=== PATIENT | male | born 1970 | race Caucasian/White ===

== ENCOUNTER 2021-05-03 17:16 | Outpatient (REF) | payer BC, SELFPAY ==
[2021-05-03 17:55] LABS: MANUAL DIFF FLAG NO
[2021-05-03 18:01] LABS: Basophils Percent Auto 0.8 % (0-2); Eosinophils Absolute Auto 0.3 X10*3/uL (0.0-0.4); Eosinophils Percent Auto 5.2 % (0-4); Hematocrit 43.8 % (42-52); Hemoglobin 14.4 g/dl (14.0-18.0); Imm Gran Abs Auto 0.01 X10*3/uL (0.00-0.03); Imm Gran Pct Auto 0.2 % (0.0-0.4); Lymphocytes Absolute Auto 1.4 X10*3/uL (1.2-4.9); Lymphocytes Percent Auto 26.4 % (20-40); Mean Corpuscular HGB Conc 32.9 g/dl (31.0-36.0); Mean Corpuscular Hemoglobin 27.6 pg (27.0-33.0); Mean Corpuscular Volume 84.1 fL (80-98); Mean Platelet Volume 9.4 fL (9.4-12.4); Monocytes Absolute Auto 0.4 X10*3/uL (0.1-1.2); Monocytes Percent Auto 7.9 % (2-11); Neutrophils Absolute Auto 3.1 X10*3/uL (2.0-8.3); Neutrophils Percent Auto 59.5 % (45-73); Platelet Count 210 X10*3/uL (160-400); Red Blood Count 5.21 X10*6/uL (4.60-5.80); Red Cell Distribution Width 13.4 % (11.0-16.0); White Blood Count 5.2 X10*3/uL (4.8-10.8)
[2021-05-03 18:43] LABS: Alanine Aminotransferase 23 U/L (0-40); Albumin Level 4.2 g/dL (3.5-5.0); Alkaline Phosphatase 57 U/L (39-117); Anion Gap 15 (12-20); Aspartate Amino Transferase 22 U/L (5-37); Bilirubin Total 1.9 mg/dL (0.0-1.0); Blood Urea Nitrogen 12 mg/dL (9-16); Calcium 9.1 mg/dL (8.4-10.2); Carbon Dioxide 25 mmol/L (22-29); Chloride 103 mmol/L (96-108); Estimated Glomerular Filt Rate 58; Glucose Random 96 mg/dL (60-115); Potassium 4.8 mmol/L (3.3-5.1); Sodium 138 mmol/L (135-145); Total Protein 6.9 g/dL (6.5-8.0)
== END 2021-05-03 17:17 | disposition home or self-care (01) ==
LOC: HO.LAB 17:16
PROVIDERS: PCP Internal Medicine; Visit Provider Nurse Practitioner Family
DX: R21 Rash and other nonspecific skin eruption (principal)
CPT/HCPCS: 36415; 80053; 85025

== ENCOUNTER → 2021-06-09 12:18 | Outpatient (BNVA) | payer BC, SELFPAY | PROVIDERS: Visit Provider Urology ==

== ENCOUNTER 2022-06-19 05:54 | Outpatient (REF) | payer BC, SELFPAY ==
[2022-06-21 07:12] LABS: Follicle Stimulating Hormone 6.6 mIU/mL (1.6-8.0); Lutenizing Hormone 4.3 mIU/mL (1.5-9.3)
[2022-06-25 09:07] LABS: Testosterone, Free 82.2 pg/mL (35.0-155.0); Testosterone, Total 475 ng/dL (250-1100)
== END 2022-06-19 05:55 | disposition home or self-care (01) ==
LOC: HO.LAB 05:54
PROVIDERS: PCP Internal Medicine; Visit Provider Urology
DX: E29.1 Testicular hypofunction (principal); R68.82 Decreased libido
CPT/HCPCS: 36415; 83001; 83002; 84402; 84403

== ENCOUNTER → 2022-12-19 15:56 | Outpatient (BNVA) | payer BC, SELFPAY | PROVIDERS: PCP Internal Medicine; Visit Provider Urology | DX: Z13.89 Encounter for screening for other disorder (principal) ==

== ENCOUNTER → 2023-01-14 14:20 | Outpatient (BNV) | payer BC, SELFPAY | PROVIDERS: PCP Internal Medicine; Visit Provider Internal Medicine Medical Oncology | DX: D75.1 Secondary polycythemia (principal); Z86.711 Personal history of pulmonary embolism; Z86.718 Personal history of other venous thrombosis and embolism; D51.9 Vitamin B12 deficiency anemia, unspecified | CPT/HCPCS: 99204; 99213 ==

== ENCOUNTER 2024-06-10 08:04 | Outpatient (AMB) | payer BC, SELFPAY ==
--- NOTE | 2024-06-10 08:06 | MHC.OFFWIV ---
Intake Vital Signs 06/10/24 08:07 Height 5 ft 8 in Weight 214 lb BMI 32.5 BP 122/86 Blood Pressure Location Lt brachial Position Sitting Pulse 84 Pulse Source Pulse Oximeter Temp 97.7 F Temp Source Oral Pulse Oximetry (%) 95 Oxygen Delivery Method Room Air Intake Visit Reasons: EP-cold sweet, low body pain Intake Note: pt c/o cold sweats, low body pain and weakness. Started yesterday Patient Tobacco Use Status: Former Tobacco user Allergies No Known Allergies Allergy (Verified 06/10/24 08:10) Do you need a note to return to daycare/school/sports/work: Yes HPI HPI Comments History of Present Illness Details Patient is a 54-year-old male complaining of increased pressure in his lower abdomen when he stands up. He states the pressure is so bad it makes his legs weak. He states he was breaking out into a cold sweat. He states the symptoms resolve and then come back there does not seem to be any exacerbating or relieving factors that are obvious to him. He denies any fevers, nausea vomiting or diarrhea but does not endorse some stomach pain that he is unable to describe to me. He endorses pain with urination, increased urgency, he also has some low back pain but denies any blood in his urine. He denies any changes in his bowel habits. [facility] Medical History Erectile dysfunction Erythrocytosis Vitamin D deficiency Pure hypercholesterolemia Basal cell carcinoma of skin of right upper eyelid, including canthus Peripheral vascular disease History of polycythemia History of pulmonary embolism Erectile dysfunction History of DVT of lower extremity Insomnia Anxiety Rash Surgical History S/P IVC filter Family History Father Diabetes Mother Diabetes Social History Housing: Apartment Alcohol intake: current Alcohol intake frequency: holidays/special occasions only Patient Tobacco Use Status: Former Tobacco user e-Cigarette/Vaping Use: Never Used Second Hand Smoke Exposure: No service: No Current occupational status: employed 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 Cognitive needs: No Hearing needs: No Vision needs: Yes (Reading Glasses) Review of Systems Const All systems reviewed & are unremarkable except as noted in HPI and below Neuro Denies Abnormal speech present and Denies Sensory deficit (Neuro) Physical Exam Vital Signs: Last Vital Signs Temp 97.7 F 06/10/24 08:07 Pulse 84 06/10/24 08:07 BP 122/86 06/10/24 08:07 Pulse Ox 95 06/10/24 08:07 Oxygen Delivery Method Room Air 06/10/24 08:07 BMI result Body Mass Index 32.5 Const General: cooperative, healthy appearing and comfortable Orientation/consciousness: patient oriented x3 HEENT Head: Yes normal to inspection and Yes normocephalic General nose exam: Normal external nose present Face and sinus: Yes normal facial exam Eyes General: appearance normal, both eyes and all related structures Resp Effort & Inspection: normal respiratory effort and able to speak in complete sentences Back/Spine/Pelvis Cervical Spine: cervical ROM normal and No Cervical spine tenderness Thoracic/Lumbar Spine: thoracic and lumbar spine normal to inspection, No thoracic spinal tenderness and No lumbar spinal tenderness Neuro General: patient oriented x3 and Unable to assess gait Cranial nerves: Yes CN's II-XII intact bilaterally Cognition (Neuro): normal cognition Speech: No Abnormal speech present Gait exam (Neuro): Unable to assess gait Motor exam (neuro): 5/5 motor strength present throughout and Pronator motor function not present Sensory Exam: No Sensory deficit (Neuro) Results AMB Urinalysis, Automated UA Leukoctes 15 Bel/uL Last Edit by Jerome Martin CMA on 06/10/24 08:40 UA Nitrite Negative Last Edit by Jerome Martin CMA on 06/10/24 08:40 UA Urobilinogen 0.2 mg/dL Last Edit by Jerome Martin CMA on 06/10/24 08:40 UA Protein 30 mg/dL Last Edit by Jerome Martin CMA on 06/10/24 08:40 UA pH 5.5 Last Edit by Jerome Martin CMA on 06/10/24 08:40 UA Blood 0 Rudy/uL Last Edit by Jerome Martin CMA on 06/10/24 08:40 UA Specific [place] 1.030 Last Edit by Jerome Martin CMA on 06/10/24 08:40 UA Ketone Positive Last Edit by Jerome Martin CMA on 06/10/24 08:40 UA Bilirubin 2 mg/dL Last Edit by Jerome Martin CMA on 06/10/24 08:40 UA Glucose 0 mg/dL Last Edit by Jerome Martin CMA on 06/10/24 08:40 Assessment & Plan Assessment & Plan (1) Lower extremity weakness: Code(s): R29.898 - Other symptoms and signs involving the musculoskeletal system Qualifiers: Laterality: bilateral Qualified Code(s): R29.898 - Other symptoms and signs involving the musculoskeletal system Plan: Vital signs are stable, patient looks a bit alcantara and he is unable to get out of the wheelchair. UA is positive for 15 leukocyte/uL, 1+ protein, 5mg/dl ketones and 2+ bilirubin. See physical exam above. Patient needs a further workup and should go to the emergency room so we called an ambulance to transport him as he is not safe to drive. I did call [facility] ED with expect and spoke to Dr. Reynaga. Plan See above Coding Level of Care Code Est Pt Level 5 (08040) Diagnoses Weakness of both lower extremities R29.898 Laterality: bilateral
[2024-06-10 08:07] VITALS: BP 122/86; PULSE 84; TEMP 36.5; O2SAT 95; BMI 32.5
== END 2024-06-10 12:48 | disposition home or self-care (01) ==
PROVIDERS: PCP Internal Medicine; Visit Provider Physician Assistant
DX: R29.898 Other symptoms and signs involving the musculoskeletal system (principal)

== ENCOUNTER → 2024-06-10 08:04 | Outpatient (BNVA) | payer BC, SELFPAY | PROVIDERS: PCP Internal Medicine | DX: R29.898 Other symptoms and signs involving the musculoskeletal system (principal) ==

== ENCOUNTER 2024-06-10 09:25 | Inpatient (IN) | payer BC, SELFPAY ==
[2024-06-10] VITALS (8 sets, daily range): BP systolic 117–169; BP diastolic 88–107; PULSE 44–89; RESP 12–19; TEMP 36.7–37; O2SAT 96–100; BMI 32.5; BMI 32.6
--- NOTE | ~2024-06-10 | CT_ITS ---
EXAMINATION: CT ABDOMEN AND PELVIS WITH CONTRAST CLINICAL INFORMATION: Suprapubic pain. COMPARISON: None available. TECHNIQUE: Multidetector volumetric images were obtained from the superior aspect of the liver through the pubic symphysis following administration 85 mL of Omnipaque 350 intravenous contrast. Sagittal and coronal reformatted images were obtained on the technologist's workstation. Oral contrast: No This CT examination was performed using dose optimization techniques as appropriate, variously including the following: *Automated exposure control *Adjustment of mA and/or kV according to patient size (this includes techniques or standardized protocols for targeted exams where dose is matched to indication/reason for exam; i.e. extremities or head) *Use of iterative reconstruction technique DLP: 736 mGy-cm FINDINGS: LUNG BASES: The visualized lung bases are unremarkable. LIVER, GALLBLADDER, AND BILIARY TREE: The liver is decreased in attenuation. No focal hepatic lesion or biliary ductal dilatation is present. The gallbladder is surgically absent. PANCREAS: Unremarkable. SPLEEN: Measures 14.5 cm in sagittal dimension. The ADRENAL GLANDS: Unremarkable. KIDNEYS AND URETERS: The kidneys are symmetric in size and enhancement. 1.0 cm right renal cyst requires no further imaging follow-up. No hydronephrosis. No perinephric stranding. BLADDER: Circumferential wall thickening and perivesicular stranding despite underdistention. GASTROINTESTINAL TRACT: Small and large bowel loops are of normal caliber. No small bowel obstruction. Appendix is within normal limits. ABDOMINAL WALL: Small fat-containing left inguinal hernia. LYMPH NODES: Subcentimeter mesenteric lymph nodes. VASCULAR: IVC filter is in place. Normal caliber abdominal aorta. PELVIC VISCERA: Enlarged prostate gland. OSSEOUS STRUCTURES: No destructive bone lesions. CT/CT abdomen pelvis w IV con IMPRESSION: Circumferential wall thickening and perivesicular stranding despite underdistention. Advise correlation with urinalysis. Splenomegaly. Hepatic steatosis. Electronically signed by: Rigoberto Stevenson MD 06/10/2024 12:34 PM EDT
--- NOTE | ~2024-06-10 | US_ITS ---
EXAMINATION: US TRIPLEX LOWER EXTREMITY, BILATERAL CLINICAL INFORMATION: History of DVT with known thrombosis of the iliac veins COMPARISON: CT abdomen and pelvis earlier today along with MRI of the lumbar spine TECHNIQUE: Color-flow triplex imaging with spectral analysis and compression Doppler were performed on the bilateral lower extremities. FINDINGS: Right: The right leg was thought to be negative for DVT by the automotive sales executive. There is a question of some noncompressible thrombus in the common femoral vein. The femoral vein and popliteal and visualized tibial veins appear normal. Left: There is noncompressible thrombus seen in the left common femoral vein. The left femoral vein is duplicated with noncompressible thrombus in the mid and distal portions. There is probable chronic thrombus seen in the popliteal vein. Tibial veins appear patent. There is no Mike's cyst. US/US venous duplex LE BI IMPRESSION: 1. This exam demonstrates definitive left-sided DVT. 2. I do believe that right-sided DVT is probably present as well but better demonstrated on the prior CT abdomen and MR lumbar spine of earlier today. Electronically signed by: Zi Power MD 06/10/2024 08:17 PM EDT
--- NOTE | ~2024-06-10 | MR_ITS ---
MR LUMBAR SPINE WITHOUT AND WITH CONTRAST CLINICAL INFORMATION: Back pain. Lower extremity weakness. COMPARISON: None available. TECHNIQUE: MRI of the lumbar spine was obtained using routine sequences with and without contrast. Intravenous contrast: Gadavist 10 mL FINDINGS: There is extensive venous thrombosis involving the imaged iliac veins and the inferior vena cava below the level of an infrarenal IVC filter. There is some stranding adjacent to these thrombosed veins making it difficult to exclude thrombophlebitis. 5 nonrib-bearing lumbar-type vertebral bodies. Lumbar alignment is maintained. The vertebral body heights are preserved. There is moderate disc volume loss at L1-L2 and mild disc volume loss at L4-L5 with disc desiccation at both of these levels. There is no bone marrow edema. There are no acute fractures. At L1-L2, there is a small diffuse annular disc bulge without central canal stenosis. There is mild foraminal encroachment bilaterally. At L2-L3, the disc contour is normal and there is mild bilateral facet arthropathy without central canal stenosis nor foraminal stenosis. There is a small annular disc bulge and mild bilateral facet arthropathy. No central canal stenosis. Mild foraminal encroachment bilaterally. At L3-L4, there is a small diffuse annular disc bulge and there is mild bilateral facet arthropathy. There is no central canal stenosis and there is no foraminal stenosis. At L4-L5, there is a diffuse annular disc bulge and there is severe bilateral facet arthropathy and ligamentum flavum thickening resulting in mild central canal stenosis, bilateral subarticular zone stenosis with mild mass effect on the traversing L5 nerve roots bilaterally, and mild to moderate bilateral foraminal encroachment. At L5-S1, the disc contour is normal and disc osteophyte and facet arthropathy results in mild to moderate left-sided foraminal encroachment. MR/MR lumbar spine wo/w con IMPRESSION: - There is extensive deep central venous thrombosis involving the imaged iliac veins and the inferior vena cava below the level of an infrarenal IVC filter. There is some stranding adjacent to these thrombosed veins making it difficult to exclude thrombophlebitis. Emergent vascular consultation advised. - Multilevel lumbar spondylosis, greatest at L4-L5 where multifactorial degenerative changes result in mild central canal stenosis, bilateral subarticular zone stenosis with mild mass effect on the traversing L5 nerve roots bilaterally, and mild to moderate bilateral foraminal encroachment. Findings discussed with Neeta MENCHACA at 4:34 PM on June 10, 2024. Electronically signed by: Don Tello MD 06/10/2024 04:36 PM EDT RP
--- NOTE | 2024-06-10 09:28 | ED_ITS ---
HPI - General Adult General Chief complaint: Abdominal Pain Stated complaint: ABD PAIN W/BLE WEAKNESS,FROM [facility] PER EMS Time Seen by Provider: 06/10/24 09:27 Source: patient, EMS and RN notes reviewed Mode of arrival: wheelchair Limitations: no limitations History of Present Illness ED Provider: Neeta Zavaleta PA-C HPI narrative: This is a 54-year-old male, with a history of DVT and PE with IVC filter previously anticoagulated up until approximately 5 years ago, who presents emergency department with acute onset lower abdominal pressure, back pain, and bilateral leg weakness which started yesterday. 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 He states he was unable to fully walk to the restroom due to the weakness in his legs. He states that since, he has been unable to ambulate for prolonged periods of time due to weakness in his lower extremities. He states that he also feels a pressure-like sensation into his lower abdomen, which worsens with standing. He denies any fevers, chills, chest pain, shortness of breath, nausea, vomiting or diarrhea. He also reports that he feels as though he is unable to fully empty his bladder. He denies any saddle anesthesia. Denies any recent illnesses. Denies history of similar symptoms in the past. Denies recent heavy lifting or falls.No hx of IVDA. No chest pain or SOB. No other complaints or concerns at this time. MD complaint: Abdominal pressure, back pain, bilateral leg weakness Onset (ago): day(s) Radiation: non-radiation Relieving factors: none Exacerbating factors: none Associated symptoms: denies other symptoms Treatments prior to arrival: none Related Data Previous Rx's ?Medication ?Instructions ?Recorded amlodipine 5 mg tablet 5 mg PO DAILY 90 days #90 tabs 06/12/24 apixaban 5 mg tablet (Eliquis) 5 mg PO BID 90 days #190 tabs 06/12/24 oxycodone 5 mg tablet 5 mg PO BID PRN severe pain (scale 06/12/24 score 7-10) #10 tabs Allergies Allergy/AdvReac Type Severity Reaction Status Date / Time No Known Allergies Allergy Verified 06/18/24 10:03 Review of Systems 2 Review of Systems: Yes all other systems are reviewed and are negative Constitutional: Constitutional: Reports as per [facility] Past Medical History Attestation statement: The following information was validated with the patient. Medical History Erectile dysfunction Erythrocytosis Vitamin D deficiency Pure hypercholesterolemia Basal cell carcinoma of skin of right upper eyelid, including canthus Peripheral vascular disease History of polycythemia History of pulmonary embolism Erectile dysfunction History of DVT of lower extremity Insomnia Anxiety Rash Surgical History S/P IVC filter Family History Family History Father Diabetes Mother Diabetes Social History Social History Household Members: None Housing: Apartment Do you presently have visiting nurse or other home services: No Alcohol intake: current Alcohol intake frequency: holidays/special occasions only Patient Tobacco Use Status: Former Tobacco user e-Cigarette/Vaping Use: Never Used Second Hand Smoke Exposure: No service: No Current occupational status: employed 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 Cognitive needs: No Hearing needs: No Vision needs: Yes (Reading Glasses) Physical Exam ED Vital Signs: Vital Signs - 24 hr 06/10/24 09:44 06/10/24 10:17 06/10/24 12:09 Temperature 98.0 F 98.0 F 98.3 F Pulse Rate 84 84 81 Respiratory Rate 16 16 18 Blood Pressure 169/103 H 169/103 H 160/107 H Pulse Oximetry 100 100 99 Oxygen Delivery Method Room Air Room Air Room Air 06/10/24 16:57 Temperature 98.3 F Pulse Rate 78 Respiratory Rate 16 Blood Pressure 143/96 H Pulse Oximetry 97 Oxygen Delivery Method Room Air BMI result Body Mass Index 32.6 Const General: cooperative, comfortable and no acute distress Orientation/consciousness: patient oriented x3 Limitations: no limitations HENMT Head: Yes normal to inspection, Yes normocephalic and Yes atraumatic Ears: hearing grossly normal bilaterally General nose exam: Normal external nose present Face and sinus: Yes normal facial exam Mouth: Normal oral and palatal mucosa present, oropharynx normal and moist mucous membranes Throat: Yes posterior oropharynx normal Eyes General: appearance normal, both eyes and all related structures Eyelids: Yes eyelids normal Conjunctivae: conjunctivae normal Sclerae: sclerae normal Pupils: Equal, round and reactive pupils present EOM: EOMs intact bilaterally Neck Neck: Yes normal visual inspection, Yes full ROM and Yes no lymphadenopathy Lymphatic: no lymphadenopathy noted Chest Chest palpation & inspection: normal inspection of the chest Resp Effort & Inspection: normal respiratory effort and able to speak in complete sentences Auscultation: clear to auscultation bilaterally, no crackles, no rales, no rhonchi and no wheezes Cardio Rate: regular rate Rhythm: regular rhythm Heart sounds: S1 normal heart sound present and S2 normal heart sound present GI Other: Suprapubic tenderness on examination, no overlying masses. TTP in the right inguinal region, no palpable masses or deformities noted. Inspection: Yes normal to inspection Other: examination performed with RN present at all times. Patient has no testicular pain, swelling. Back/Spine/Pelvis Other: No midline spine tenderness, no overlying erythema, or warmth. No CVA tenderness Cervical Spine: normal cervical lordosis Thoracic/Lumbar Spine: thoracic and lumbar spine normal to inspection Skin General skin exam: no rashes or lesions noted Trauma: no lacerations or abrasions Wounds: no wounds Neuro General: patient oriented x3 and moves all extremities Cranial nerves: Yes Equal, round and reactive pupils present Extrem Other: Strength 5/5 in lower extremities. No peripheral edema. No calf tenderness. Legs are well perfused, capillary refill less than 2 seconds. dtrs 2+. sensation intact. popiteal pulses palpated, strong femoral pulse noted bilaterally. Weakness in legs noted upon standing, unable to stand. General: Yes normal to inspection Right upper extremity: normal to inspection Left upper extremity: normal to inspection Right lower extremity: normal to inspection Left lower extremity: normal to inspection Course Reevaluation(s) Reevaluation #1: Received critical [facility] call stating he has an extensive deep central vein 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 There is extensive deep central venous thrombosis involving the imaged iliac veins and the inferior vena cava below the level of an infrarenal IVC filter. Immediately consulted Dr. Covarrubias who recommends heparin drip with full bolus. Discssued with my attending physician, Dr. Denise who was made aware of this critical result and assessed pt. Time: 16:30 Reevaluation #2: Spoke to Dr. Covarrubias who again, as there was concern whether not this is something we could manage at our hospital or if patient needs to be sent elsewhere. Dr. Covarrubias reported that he spoke to [facility] and spoke to radiologist who is not fully convinced that this is completely occluded as alluded to in the reports. He is still requesting lower extremity venous DVT. He still recommends admission to Medicine, and heparin bolus as well as heparin drip. Dr. Covarrubias recommends NPO at midnight. Pt remains stable. Transfer of care initiated. Time: 17:37 Medications Administered Discontinued Medications Generic Name Dose Route Start Last Admin Trade Name Freq PRN Reason Stop Dose Admin Acetaminophen 650 mg 06/10/24 19:14 06/11/24 20:00 Acetaminophen 325 Mg Tablet PO 650 mg Q6H PRN Administration Pain, Mild (Pain Scale 1-3), fever or headache Amlodipine Besylate 5 mg 06/12/24 11:20 06/12/24 12:26 Amlodipine Besylate 5 Mg Tablet PO 5 mg DAILY BERNA Administration Protocol Apixaban 10 mg 06/12/24 09:00 06/12/24 09:09 Apixaban 5 Mg Tablet PO 06/18/24 21:01 10 mg BID BERNA Administration Gadobutrol 10 ml 06/10/24 16:08 06/10/24 16:09 Gadobutrol 10 Ml Vial IVPUSH 06/10/24 16:09 10 ml ONCE ONE Administration Heparin Sodium (Porcine) 7,800 unit 06/10/24 16:47 06/10/24 17:56 Heparin Sodium,Porcine 5,000 Unit/Ml Vial 80 unit/kg (7800 unit) 06/10/24 16:48 7,800 unit IVPUSH Administration ONCE ONE Heparin Sodium (Porcine) 3,900 unit 06/10/24 16:47 06/12/24 02:37 Heparin Sodium,Porcine 5,000 Unit/Ml Vial 40 unit/kg (3900 unit) 3,900 unit IVPUSH Administration PROTOCOL BOLUS PRN 40 unit/kg - Heparin Protocol Protocol Heparin Sodium/Sodium Chloride 25,000 unit in 250 mls @ 0 mls/hr 06/10/24 17:00 06/12/24 08:09 Heparin Sodium,Porcine/1/2ns IVCONT Infused .Q0M BERNA Titration Protocol Per Protocol Lactated Ringer's 1,000 mls @ 999 mls/hr 06/10/24 21:15 06/10/24 22:03 Lr IV 06/10/24 22:15 Infused .Q1H1M BERNA Infusion Sodium Chloride 1,000 mls @ 100 mls/hr 06/11/24 10:15 06/12/24 08:53 Ns IVCONT Infused .Q10H BERNA Infusion Iohexol 85 ml 06/10/24 10:59 06/10/24 11:01 Iohexol 350 Mg/Ml 100 Ml Infus..Btl IV 06/10/24 11:00 85 ml ONCE ONE Administration Loperamide HCl 2 mg 06/10/24 20:50 06/10/24 21:49 Loperamide Hcl 2 Mg Capsule PO 2 mg Q6H PRN Administration Loose Stool Lorazepam 1 mg 06/10/24 14:57 06/10/24 15:02 Lorazepam 2 Mg/Ml Vial IVPUSH 06/10/24 14:58 1 mg ONCE ONE Administration Melatonin 6 mg 06/10/24 19:14 06/11/24 22:42 Melatonin 3 Mg Tablet PO 6 mg BEDTIME PRN Administration Insomnia Oxycodone HCl 5 mg 06/11/24 16:19 06/12/24 15:54 Oxycodone Hcl Immed Release 5 Mg Tablet PO 5 mg Q4H PRN Administration Pain, Moderate(Pain Scale 4-6) Sodium Chloride 3 ml 06/11/24 00:00 06/12/24 15:55 0.9 % Sodium Chloride Flush 3 Ml Syringe IVFLUSH 3 ml QSHIFT BERNA Administration Medical Decision Making Medical Decision Making [facility] Narrative: This is a 54-year-old male who presents emergency department with complaints of lower abdominal pressure into his groin, and bilateral weakness since yesterday. On arrival, blood pressure elevated at 169/103, all other vital signs within normal limits. Patient has 5/5 lower extremity strength. Patient does have suprapubic tenderness on examination. DDX including cauda equina syndrome, myasthenia gravis, lumbar radiculopathy, obstructive uropathy, cystitis. I discussed case with my attending physician and given acute onset LE weakness, will order labs, CT and MRI to further assess. Differential Diagnosis Differential Diagnoses: The differential diagnosis associated with the presentation includes see above Admission/Observation Consideration of admission/observation: Escalation of care including admission/observation considered Lab Data MDM Lab Attestation statement: I reviewed the patient's lab results. No leukocytosis, H&H stable, chemistry with hyperbilirubemia at 4.6, UA appears not infected. 06/12/24 06:52 06/12/24 06:52 Labs: Lab Results 06/10/24 06/10/24 06/10/24 Range/Units 10:15 12:12 17:11 WBC 8.5 7.4 (4.8-10.8) X10*3/uL RBC 3.78 L 3.54 L (4.60-5.80) X10*6/uL Hgb 14.9 13.9 L (14.0-18.0) g/dl Hct 41.4 L 38.0 L (42.0-52.0) % MCV 109.5 H 107.3 H (80.0-98.0) fL MCH 39.4 H 39.3 H (27.0-33.0) pg MCHC 36.0 36.6 H (31.0-36.0) g/dl RDW 13.2 13.2 (11.0-16.0) % Plt Count 151 L 142 L (160-400) X10*3/uL MPV 9.7 9.1 L (9.4-12.4) fL Immature Gran % (Auto) 0.2 (0.0-0.4) % Neut % (Auto) 86.1 H (45-73) % Lymph % (Auto) 7.9 L (20-40) % Walsh % (Auto) 5.6 (2-11) % Eos % (Auto) 0.0 (0-4) % Baso % (Auto) 0.2 (0-2) % Lymph # (Auto) 0.7 L (1.2-4.9) X10*3/uL Walsh # (Auto) 0.5 (0.1-1.2) X10*3/uL Eos # (Auto) 0.0 (0.0-0.4) X10*3/uL Baso # (Auto) 0.0 (0.0-0.2) X10*3/uL Abs Immat Gran (auto) 0.02 (0.00-0.03) X10*3/uL Absolute Neuts (auto) 7.3 (2.0-8.3) x10*3/uL Absolute Nucleated RBC 0.000 0.000 (0.0-0.012) X10*3/uL Nucleated RBC % (auto) 0.0 0.0 (0.0-0.2) /100WBC ESR 2 (0-15) MM/HR PT 13.0 H 13.2 H (10.9-12.4) SEC INR 1.1 1.1 (0.9-1.1) aPTT Heparin Protocol 32.5 L (53-77.9) SEC Sodium 141 (135-145) mmol/L Potassium 4.0 (3.3-5.1) mmol/L Chloride 107 (96-108) mmol/L Carbon Dioxide 26 (22-29) mmol/L Anion Gap 12 (12-20) BUN 16 (9-16) mg/dL Creatinine 1.17 (0.5-1.4) mg/dL Estim Creat Clear Calc 79.6 Estimated GFR > 60 Random Glucose 143 H (60-115) mg/dL Calcium 9.7 D (8.4-10.2) mg/dL Total Bilirubin 4.6 H (0.0-1.0) mg/dL Direct Bilirubin 0.6 H (0.0-0.5) mg/dL AST 17 (5-37) U/L ALT 18 (0-40) U/L Alkaline Phosphatase 47 (39-117) U/L Troponin I High Sens 4.4 (<3.5-35.0) ng/L C-Reactive Protein 0.50 (< or = 0.50) mg/dL Total Protein 7.3 (6.5-8.0) g/dL Albumin 4.7 (3.5-5.0) g/dL Lipase 16 (8-78) U/L Urine Color Dark Yellow Urine Appearance Clear Urine pH 7.0 (5.0-9.0) Ur Specific [place] >= 1.030 H (1.005-1.025) Urine Protein 30 (1+) H (Neg-Trace) mg/dL Urine Glucose (UA) Negative (Negative) mg/dL Urine Ketones Trace (Negative) mg/dL Urine Blood Negative (Negative) Urine Nitrite Negative (Negative) Ur Leukocyte Esterase Negative (Negative) Urine RBC 0-2 (0-2) /HPF Urine WBC 0-5 (0-5) /HPF Ur Squamous Epith Cells 0-2 (0-2) /HPF Urine Bacteria None Seen (None Seen) Hyaline Casts 3-5 (0-2) /LPF Chlam trachomat DNA PCR NOT DETECTED (Not Detect.) Influenza Type A (PCR) NEGATIVE (Negative) Influenza Type B (PCR) NEGATIVE (Negative) N.gonorrhoeae DNA (PCR) NOT DETECTED (Not Detect.) RSV RNA Qual (PCR) NEGATIVE (Negative) SARS-CoV-2 RNA (RT-PCR) NEGATIVE (Negative) Independent Interpretation I performed an independent interpretation of an: EKG Interpretation: EKG normal sinus rhythm at a ventricular rate of 79 beats per minute, no STEMI Radiology Impression Discussion of test interpretation with radiology: I have reviewed the radiologist's reading. Radiologist Impression: MR/MR lumbar spine wo/w con IMPRESSION: - There is extensive deep central venous thrombosis involving the imaged iliac veins and the inferior vena cava below the level of an infrarenal IVC filter. There is some stranding adjacent to these thrombosed veins making it difficult to exclude thrombophlebitis. Emergent vascular consultation advised. - Multilevel lumbar spondylosis, greatest at L4-L5 where multifactorial degenerative changes result in mild central canal stenosis, bilateral subarticular zone stenosis with mild mass effect on the traversing L5 nerve roots bilaterally, and mild to moderate bilateral foraminal encroachment. Findings discussed with Neeta MENCHACA at 4:34 PM on June 10, 2024. Electronically signed by: Don Tello MD 06/10/2024 04:36 PM EDT RP Dictated By: Don Tello MD CT/CT abdomen pelvis w IV con IMPRESSION: Circumferential wall thickening and perivesicular stranding despite underdistention. Advise correlation with urinalysis. Splenomegaly. Hepatic steatosis. Electronically signed by: Rigoberto Stevenson MD 06/10/2024 12:34 PM EDT RP Dictated By: Dayana Stevenson MD Signed By: <Electronically signed by Dayana Stevenson MD in OV> Critical Care Time Critical Care Time Critical Care Time: Yes Total Critical Care Time: 60 Attestation: I have personally provided critical care time exclusive of time spent on separately billable procedures. Time includes review of lab data, radiology results, discussion with consultants, and monitoring for potential decompensation. Intervention performed as documented. Discharge Plan Discharge Clinical Impression: DVT (deep venous thrombosis) Qualifiers: DVT location: lower extremity Affected thrombotic vein of extremity: iliac C hronicity: acute Laterality: bilateral Qualified Code(s): I82.423 - Acute embolism and thrombosis of iliac vein, bilateral Patient Disposition: Admitted As Inpatient Discharge Date/Time: 06/11/24 18:22
--- NOTE | 2024-06-10 09:47 | ECG_ITS ---
Test Reason : WEAKNESS Blood Pressure : / mmHG Vent. Rate : 079 BPM Atrial Rate : 079 BPM P-R Int : 134 ms QRS Dur : 084 ms QT Int : 380 ms P-R-T Axes : 054 022 041 degrees QTc Int : 435 ms Normal sinus rhythm Nonspecific T wave abnormality Abnormal ECG When compared with ECG of 28-JUN-2017 08:25, Vent. rate has increased BY 28 BPM Nonspecific T wave abnormality now evident in Lateral leads Referred By: Neeta Zavaleta Electronically Signed By:ASHLYN FISCHER
[2024-06-10 10:19] LABS: MANUAL DIFF FLAG NO
[2024-06-10 10:21] LABS: Basophils Percent Auto 0.2 % (0-2); Hematocrit 41.4 % (42.0-52.0); Hemoglobin 14.9 g/dl (14.0-18.0); Imm Gran Abs Auto 0.02 X10*3/uL (0.00-0.03); Imm Gran Pct Auto 0.2 % (0.0-0.4); Lymphocytes Absolute Auto 0.7 X10*3/uL (1.2-4.9); Lymphocytes Percent Auto 7.9 % (20-40); Mean Corpuscular Hemoglobin 39.4 pg (27.0-33.0); Mean Corpuscular Volume 109.5 fL (80.0-98.0); Mean Platelet Volume 9.7 fL (9.4-12.4); Monocytes Absolute Auto 0.5 X10*3/uL (0.1-1.2); Monocytes Percent Auto 5.6 % (2-11); Neutrophils Absolute Auto 7.3 x10*3/uL (2.0-8.3); Neutrophils Percent Auto 86.1 % (45-73); Platelet Count 151 X10*3/uL (160-400); Red Blood Count 3.78 X10*6/uL (4.60-5.80); Red Cell Distribution Width 13.2 % (11.0-16.0); White Blood Count 8.5 X10*3/uL (4.8-10.8)
[2024-06-10 10:27] LABS: INTERNATIONAL NORM RATIO 1.1 (0.9-1.1)
[2024-06-10 10:37] LABS: Alanine Aminotransferase 18 U/L (0-40); Albumin Level 4.7 g/dL (3.5-5.0); Alkaline Phosphatase 47 U/L (39-117); Anion Gap 12 (12-20); Aspartate Amino Transferase 17 U/L (5-37); Bilirubin Direct 0.6 mg/dL (0.0-0.5); Bilirubin Total 4.6 mg/dL (0.0-1.0); Blood Urea Nitrogen 16 mg/dL (9-16); Calcium 9.7 mg/dL (8.4-10.2); Carbon Dioxide 26 mmol/L (22-29); Chloride 107 mmol/L (96-108); Creatinine Clr Calc Pharmacy 79.6; Estimated Glomerular Filt Rate > 60; Glucose Random 143 mg/dL (60-115); Lipase 16 U/L (8-78); Sodium 141 mmol/L (135-145); Total Protein 7.3 g/dL (6.5-8.0)
[2024-06-10 10:46] LABS: Troponin-I High Sensitivity 4.4 ng/L (<3.5-35.0)
[2024-06-10 10:59] LABS: Influenza A PCR NEGATIVE (Negative); Influenza B PCR NEGATIVE (Negative); Resp Syncy Virus RNA Qual PCR NEGATIVE (Negative); SARS COV2 PCR INHOUSE NEGATIVE (Negative)
[2024-06-10 11:00] LABS: Erythrocyte Sedimentation Rate 2 MM/HR (0-15)
[2024-06-10] MEDS: iohexoL 350 MG/ML 100 ML INFUS..BTL 85 ML IV (11:01)
[2024-06-10 12:25] LABS: Appearance Urine Clear; Color Urine Dark Yellow; Glucose Urine UA Negative (Negative); Leukocyte Esterase Urine Negative (Negative); Nitrite Urine Negative (Negative); Specific Gravity - Urine >= 1.030 (1.005-1.025); UMIC TRIGGER UACC YES; Urine Blood Negative (Negative); Urine Ketones Trace mg/dL (Negative); Urine Protein 30 (1+) mg/dL (Neg-Trace)
[2024-06-10 12:27] LABS: Bacteria Urine None Seen (None Seen); RBC Urine 0-2 /HPF (0-2); Squamous Epithelial Cell Urine 0-2 /HPF (0-2); WBC Urine 0-5 /HPF (0-5)
[2024-06-10] MEDS: LORazepam 2 MG/ML VIAL 1 MG IVPUSH (15:02)
--- NOTE | 2024-06-10 15:15 | PC.NURSE ---
pt to MRI, MRI screening form faxed, pt medicated prior to transport.
[2024-06-10] MEDS: gadobutroL 10 ML VIAL IVPUSH (16:09)
[2024-06-10 17:21] LABS: Hemoglobin 13.9 g/dl (14.0-18.0); Mean Corpuscular HGB Conc 36.6 g/dl (31.0-36.0); Mean Corpuscular Hemoglobin 39.3 pg (27.0-33.0); Mean Corpuscular Volume 107.3 fL (80.0-98.0); Mean Platelet Volume 9.1 fL (9.4-12.4); Platelet Count 142 X10*3/uL (160-400); Red Blood Count 3.54 X10*6/uL (4.60-5.80); Red Cell Distribution Width 13.2 % (11.0-16.0); White Blood Count 7.4 X10*3/uL (4.8-10.8)
[2024-06-10 17:32] LABS: INTERNATIONAL NORM RATIO 1.1 (0.9-1.1); Prothrombin Time 13.2 SEC (10.9-12.4)
[2024-06-10 17:34] LABS: PTT Heparin Drip 32.5 SEC (53-77.9)
[2024-06-10] MEDS: Heparin Sodium,Porcine 5,000 UNIT/ML VIAL 7800 UNIT IVPUSH (17:56)
[2024-06-10] MEDS: Heparin Sodium,Porcine/1/2NS 25,000 UNIT/250 ML IV.SOLN 13.59 UNIT IVCONT (17:59)
--- NOTE | 2024-06-10 19:15 | P.HPHOSP_ITS ---
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 He has been off anticoagulation for the last 5 years. Patient states he also stopped taking lisinopril since he was having a headache. Currently he is not on any prescription medications. Patient's symptoms started 1 day prior to presentation. He has been having bilateral leg pain and lower back pain. Pain worsened to the point that he could not walk. No fever, chills, chest discomfort, palpitations, shortness of breath, abdominal pain, changes in urinary or bowel habits. In the emergency department, imaging with 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. Vascular surgery was consulted who requested admission with IV heparin. Review of Systems 2 Constitutional: Constitutional: Reports fatigue and Reports weakness Cardiovascular: Cardiovascular: Reports no additional cardiovascular complaints Respiratory: Respiratory: Reports no additional respiratory complaints Gastrointestinal: Gastrointestinal: Reports no additional gastrointestinal complaints Genitourinary: Genitourinary: Reports no additional male genitourinary complaints Neurologic: Reports weakness Endocrine: Endocrine: Reports fatigue [facility] Medical History Erectile dysfunction Erythrocytosis Vitamin D deficiency Pure hypercholesterolemia Basal cell carcinoma of skin of right upper eyelid, including canthus Peripheral vascular disease History of polycythemia History of pulmonary embolism Erectile dysfunction History of DVT of lower extremity Insomnia Anxiety Rash Family History Father Diabetes Mother Diabetes Surgical History S/P IVC filter Social History Housing: Apartment Alcohol intake: current Alcohol intake frequency: holidays/special occasions only Patient Tobacco Use Status: Former Tobacco user Smoked in Last 30 Days: No e-Cigarette/Vaping Use: Never Used Second Hand Smoke Exposure: No Use of substances other than those prescribed or required for medical reasons: No Advance Directives: No Advance Directives Information Provided: Yes Nutrition Risks: No Nutritional Risk service: No Current occupational status: employed 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 Cognitive needs: No Hearing needs: No Vision needs: Yes (Reading Glasses) Meds Allergies Allergy/AdvReac Type Severity Reaction Status Date / Time No Known Allergies Allergy Verified 06/10/24 09:50 Active Medications: Current Medications Heparin Sodium (Porcine) (Heparin Sodium,Porcine 5,000 Unit/Ml Vial) 3,900 unit 40 unit/kg (3900 unit) IVPUSH PROTOCOL BOLUS PRN; Protocol PRN Reason: 40 unit/kg - Heparin Protocol Heparin Sodium (Porcine) (Heparin Sodium,Porcine 5,000 Unit/Ml Vial) 7,800 unit 80 unit/kg (7800 unit) IVPUSH PROTOCOL BOLUS PRN; Protocol PRN Reason: 80 unit/kg - Heparin Protocol Heparin Sodium/Sodium Chloride (Heparin Sodium,Porcine/1/2ns) 25,000 unit in 250 mls @ 0 mls/hr IVCONT .Q0M BERNA; Protocol Last Admin: 06/10/24 17:59 Dose: 14 units/kg/hr, 13.59 mls/hr Physical Exam 2 Vital Signs and Narrative: Vital Signs: Last Vital Signs Temp 98.2 F 06/10/24 18:00 Pulse 84 06/10/24 18:00 Resp 16 06/10/24 18:00 BP 161/92 H 06/10/24 18:00 Pulse Ox 97 06/10/24 18:00 O2 Del Method Room Air 06/10/24 18:00 BMI result Body Mass Index 32.6 Middle-aged male lying in bed in no distress Neck supple, no JVD Regular rate and rhythm, S1-S2 heard Regular breath sounds bilaterally, no wheezing or crackles appreciated Abdomen soft nontender, no guarding, no rigidity Patient is awake, alert and oriented to self, place, time and person ; no focal motor deficit Psych: Normal mood No pedal edema Results Labs 06/10/24 17:11 06/10/24 10:15 Labs: Laboratory Results - last 24 hr 06/10/24 06/10/24 06/10/24 10:15 12:12 17:11 MCV 109.5 H 107.3 H MCH 39.4 H 39.3 H MCHC 36.0 36.6 H RDW 13.2 13.2 Plt Count 151 L 142 L MPV 9.7 9.1 L Immature Gran % (Auto) 0.2 Neut % (Auto) 86.1 H Lymph % (Auto) 7.9 L [place] % (Auto) 5.6 Eos % (Auto) 0.0 Baso % (Auto) 0.2 Lymph # (Auto) 0.7 L [place] # (Auto) 0.5 Eos # (Auto) 0.0 Baso # (Auto) 0.0 Abs Immat Gran (auto) 0.02 Absolute Neuts (auto) 7.3 Absolute Nucleated RBC 0.000 0.000 Nucleated RBC % (auto) 0.0 0.0 ESR 2 PT 13.0 H 13.2 H INR 1.1 1.1 aPTT Heparin Protocol 32.5 L Anion Gap 12 Estim Creat Clear Calc 79.6 Estimated GFR > 60 Random Glucose 143 H Calcium 9.7 D Total Bilirubin 4.6 H Direct Bilirubin 0.6 H AST 17 ALT 18 Alkaline Phosphatase 47 Troponin I High Sens 4.4 C-Reactive Protein 0.50 Total Protein 7.3 Albumin 4.7 Lipase 16 Urine Color Dark Yellow Urine Appearance Clear Urine pH 7.0 Ur Specific [place] >= 1.030 H Urine Protein 30 (1+) H Urine Glucose (UA) Negative Urine Ketones Trace Urine Blood Negative Urine Nitrite Negative Ur Leukocyte Esterase Negative Urine RBC 0-2 Urine WBC 0-5 Ur Squamous Epith Cells 0-2 Urine Bacteria None Seen Hyaline Casts 3-5 Influenza Type A (PCR) NEGATIVE Influenza Type B (PCR) NEGATIVE RSV RNA Qual (PCR) NEGATIVE SARS-CoV-2 RNA (RT-PCR) NEGATIVE Imaging Radiologist's Impressions: Impressions Abdomen/Pelvis CT 06/10/24 09:48 IMPRESSION: Circumferential wall thickening and perivesicular stranding despite underdistention. Advise correlation with urinalysis. Splenomegaly. Hepatic steatosis. Electronically signed by: Rigoberto Stevenson MD 06/10/2024 12:34 PM EDT RP Lumbar Spine MRI 06/10/24 15:38 IMPRESSION: - There is extensive deep central venous thrombosis involving the imaged iliac veins and the inferior vena cava below the level of an infrarenal IVC filter. There is some stranding adjacent to these thrombosed veins making it difficult to exclude thrombophlebitis. Emergent vascular consultation advised. - Multilevel lumbar spondylosis, greatest at L4-L5 where multifactorial degenerative changes result in mild central canal stenosis, bilateral subarticular zone stenosis with mild mass effect on the traversing L5 nerve roots bilaterally, and mild to moderate bilateral foraminal encroachment. Findings discussed with Neeta MENCHACA at 4:34 PM on June 10, 2024. 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 #. Acute DVT, extensive: Will admit patient with IV heparin. Vascular surgery consulted from the ER, appreciate assistance. Will keep patient NPO after midnight. #. Unconjugated hyperbilirubinemia: Obtaining TSH. No evidence of cirrhosis on imaging. Also obtaining LDH, haptoglobin, retic count. Repeat in a.m. #. Hypertension: On lisinopril Med rec pending DVT prophylaxis: IV heparin Full code Admit as inpatient and will require two night minimum hospital stay for IV heparin (as above), which is not possible in a lesser acute setting. Specialist consult pending Quality Stroke Does the patient have a stroke diagnosis?: No VTE Prior VTE?: No VTE Risk Level:: Medical - moderate - high VTE Device Contraindication: Treatment Not Indicated VTE Drug Contraindication: N/A - Med Ordered
--- NOTE | 2024-06-10 20:25 | PHA.MEDREC ---
Pharmacy Consult ? Medication Reconciliation Pharmacy has completed the medication reconciliation. Patient confirmed that he doesn't take any medication at home.
[2024-06-10] MEDS: Lactated Ringers 1,000 ML 999 ML IV (21:04)
[2024-06-10 21:15] LABS: MANUAL DIFF FLAG NO
[2024-06-10 21:18] LABS: Basophils Percent Auto 0.4 % (0-2); Eosinophils Percent Auto 0.4 % (0-4); Hematocrit 38.6 % (42.0-52.0); Hemoglobin 13.9 g/dl (14.0-18.0); Imm Gran Abs Auto 0.02 X10*3/uL (0.00-0.03); Imm Gran Pct Auto 0.2 % (0.0-0.4); Lymphocytes Absolute Auto 1.8 X10*3/uL (1.2-4.9); Lymphocytes Percent Auto 20.3 % (20-40); Mean Corpuscular Hemoglobin 39.6 pg (27.0-33.0); Mean Platelet Volume 9.6 fL (9.4-12.4); Monocytes Absolute Auto 0.6 X10*3/uL (0.1-1.2); Monocytes Percent Auto 6.9 % (2-11); Neutrophils Absolute Auto 6.4 x10*3/uL (2.0-8.3); Neutrophils Percent Auto 71.8 % (45-73); Platelet Count 146 X10*3/uL (160-400); Red Blood Count 3.51 X10*6/uL (4.60-5.80); Red Cell Distribution Width 13.5 % (11.0-16.0)
[2024-06-10 21:23] LABS: OBS Int Ctl Valid YES; OBS1 NEGATIVE (NEGATIVE)
[2024-06-10 21:29] LABS: Anion Gap 19 (12-20); Blood Urea Nitrogen 16 mg/dL (9-16); Calcium 8.9 mg/dL (8.4-10.2); Carbon Dioxide 18 mmol/L (22-29); Chloride 107 mmol/L (96-108); Estimated Glomerular Filt Rate 53; Glucose Random 162 mg/dL (60-115); Sodium 140 mmol/L (135-145)
[2024-06-10] MEDS: Acetaminophen 325 MG TABLET 650 MG PO (21:49)
[2024-06-10] MEDS: Loperamide HCl 2 MG CAPSULE PO (21:49)
[2024-06-10] MEDS: Melatonin 3 MG TABLET 6 MG PO (21:51)
--- NOTE | 2024-06-10 21:59 | PC.NURSE ---
pt had episode of sudden onset fecal urgency w large amount of liquid diarrhea. pt cleaned and repositioned back into bed. pt diaphoretic, HR 44, other vss, skin cool/clammy/pale, episodes of increased lethargy responsive to verbal stimuli. provider notified and at bedside for reeval. stool sample and repeat blood work to lab. LR running. heparin cont's to infuse - recheck PTT-HD due at 2359. pt medicated w PRN melatonin for sleep, tylenol for 7/10 back pain (requested despite higher pain scale), and imodium for loose stool. pt color improved, pt alert w vitals WNL.
[2024-06-10 22:13] LABS: CDiff Gene PCR NEGATIVE (Negative)
[2024-06-11] VITALS (11 sets, daily range): BP systolic 140–163; BP diastolic 74–92; PULSE 62–74; RESP 12–20; TEMP 36.1–36.9; O2SAT 96–99
--- NOTE | 2024-06-11 00:03 | PC.NURSE ---
Phlebotomy at bedside drawing ptt-hd
--- NOTE | 2024-06-11 00:11 | PC.NURSE ---
Assumed care of pt at 2300. PT resting quietly in no acute distress. pt denies pain. Heparin running at 14u/kg. Lab sent down awaiting results. VSS. Cardiac monitoring on.
[2024-06-11 00:25] LABS: PTT Heparin Drip 109.6 SEC (53-77.9)
[2024-06-11 05:45] LABS: MANUAL DIFF FLAG NO
[2024-06-11 05:46] LABS: PTT Heparin Drip 59.3 SEC (53-77.9)
[2024-06-11 05:56] LABS: CT PCR NOT DETECTED (Not Detect.); NG PCR NOT DETECTED (Not Detect.)
[2024-06-11 06:01] LABS: Haptoglobin 67 mg/dL (14-258)
[2024-06-11 06:13] LABS: INTERNATIONAL NORM RATIO 1.2 (0.9-1.1); Prothrombin Time 13.4 SEC (10.9-12.4)
[2024-06-11 06:20] LABS: Alanine Aminotransferase 14 U/L (0-40); Albumin Level 3.9 g/dL (3.5-5.0); Alkaline Phosphatase 44 U/L (39-117); Anion Gap 14 (12-20); Aspartate Amino Transferase 13 U/L (5-37); Bilirubin Total 4.6 mg/dL (0.0-1.0); Blood Urea Nitrogen 17 mg/dL (9-16); Calcium 8.9 mg/dL (8.4-10.2); Carbon Dioxide 22 mmol/L (22-29); Chloride 107 mmol/L (96-108); Creatinine Clr Calc Pharmacy 87.1; Estimated Glomerular Filt Rate > 60; Glucose Random 103 mg/dL (60-115); Lactate Dehydrogenase 236 U/L (118-273); Potassium 3.9 mmol/L (3.3-5.1); Sodium 139 mmol/L (135-145)
[2024-06-11 06:28] LABS: Thyroid Stimulating Hormone 0.61 uIU/mL (0.32-4.0)
[2024-06-11 07:00] LABS: Basophils Percent Auto 0.5 % (0-2); Eosinophils Absolute Auto 0.1 X10*3/uL (0.0-0.4); Hematocrit 35.2 % (42.0-52.0); Hemoglobin 12.6 g/dl (14.0-18.0); Imm Gran Abs Auto 0.02 X10*3/uL (0.00-0.03); Imm Gran Pct Auto 0.3 % (0.0-0.4); Immature Retic Fraction 18.9 % (2.3-13.4); Lymphocytes Absolute Auto 1.6 X10*3/uL (1.2-4.9); Lymphocytes Percent Auto 25.8 % (20-40); Mean Corpuscular HGB Conc 35.8 g/dl (31.0-36.0); Mean Corpuscular Hemoglobin 39.5 pg (27.0-33.0); Mean Platelet Volume 9.4 fL (9.4-12.4); Monocytes Absolute Auto 0.4 X10*3/uL (0.1-1.2); Monocytes Percent Auto 5.8 % (2-11); Neutrophils Percent Auto 66.6 % (45-73); Platelet Count 127 X10*3/uL (160-400); Red Blood Count 3.19 X10*6/uL (4.60-5.80); Red Cell Distribution Width 13.6 % (11.0-16.0); Reticulocytes Absolute 0.063 X10*6/uL (0.026-0.095)
[2024-06-11 07:13] LABS: Mean Corpuscular Volume 110.3 fL (80.0-98.0)
--- NOTE | 2024-06-11 07:17 | PC.NURSE ---
report recieved from previous RN, patient resting comfortbaly on stretcher, heparin drip flowing through 20g IV in right hand at 10units/kg/hr, repeat PTT to be drawn at 0800. vivienne states he has not voided since 1800 yesterday, provided with urinal, able to void roughly 250mL into urinal,post void residual bladder scan completed at bedside by this RN, patient noted to have emptied bladder with only 12mL remaining after voiding. patient endorsing some relief from pain in left groin area where stent is. plan of care remains ongoing. patient remains on heart monitor at this time.
--- NOTE | 2024-06-11 09:18 | PC.NURSE ---
lab called to come draw repeat aPTT
[2024-06-11 09:47] LABS: PTT Heparin Drip 47.8 SEC (53-77.9)
--- NOTE | 2024-06-11 09:49 | PC.NURSE ---
report given to karina, patient to go for procedure at 1100
--- NOTE | 2024-06-11 09:56 | P.CONGS_ITS ---
History of Present Illness Consult details Consult date: 06/11/24 Reason for consult: other (DVT) Narrative: Very pleasant 54-year-old gentleman presented to the hospital yesterday with intense swelling and discomfort of the lower extremities. It appeared to be sudden onset he had significant swelling he had received a CT scan earlier and then subsequently due to back pain issues received an MRI. Upon getting the MRI there was concern of occlusion of the vena cava. He subsequently underwent lower extremity ultrasound to rule out DVT which did come back positive. Upon discussion with him he actually initially had his 1st incident with a DVT back in 2002. Secondary to knee surgery and he was immobile. Apparently there was a pulmonary embolism and subsequently he received an IVC filter. Now presents to us for vascular evaluation. Review of Systems 2 Review of Systems: Yes all other systems are reviewed and are negative Constitutional: Constitutional: Reports no additional constitutional complaints ENT: Reports Normal hearing present Cardiovascular: Cardiovascular: Denies chest pain, Denies chest pain at rest, Denies chest pain with activity and Denies pedal edema Respiratory: Respiratory: Denies cough Gastrointestinal: Gastrointestinal: Denies abdominal pain Musculoskeletal: Musculoskeletal: Denies abnormal gait, Denies muscle cramps and Denies radiating pain into limb Integumentary/Breasts: Skin/Breast: Denies skin ulcer and Denies wounds Neurologic: Reports Normal hearing present and Denies abnormal gait Psychiatric: Psychiatric: Reports no additional psychiatric complaints PMFSH Past Medical History Medical History Erectile dysfunction Erythrocytosis Vitamin D deficiency Pure hypercholesterolemia Basal cell carcinoma of skin of right upper eyelid, including canthus Peripheral vascular disease History of polycythemia History of pulmonary embolism Erectile dysfunction History of DVT of lower extremity Insomnia Anxiety Rash Family History Family History Father Diabetes Mother Diabetes Surgical History Surgical History S/P IVC filter Social History Social History Housing: Apartment Alcohol intake: current Alcohol intake frequency: holidays/special occasions only Patient Tobacco Use Status: Former Tobacco user Smoked in Last 30 Days: No e-Cigarette/Vaping Use: Never Used Second Hand Smoke Exposure: No Use of substances other than those prescribed or required for medical reasons: No Advance Directives: No Advance Directives Information Provided: Yes Nutrition Risks: No Nutritional Risk service: No Current occupational status: employed 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 Cognitive needs: No Hearing needs: No Vision needs: Yes (Reading Glasses) Meds Allergies Allergy/AdvReac Type Severity Reaction Status Date / Time No Known Allergies Allergy Verified 06/10/24 09:50 Active Medications: Current Medications Acetaminophen (Acetaminophen 325 Mg Tablet) 650 mg PO Q6H PRN PRN Reason: Pain, Mild (Pain Scale 1-3), fever or headache Last Admin: 06/10/24 21:49 Dose: 650 mg Calcium Carbonate (Calcium Carbonate 750 Mg Tab.Chew) 750 mg PO Q4H PRN PRN Reason: Heartburn Heparin Sodium (Porcine) (Heparin Sodium,Porcine 5,000 Unit/Ml Vial) 3,900 unit 40 unit/kg (3900 unit) IVPUSH PROTOCOL BOLUS PRN; Protocol PRN Reason: 40 unit/kg - Heparin Protocol Heparin Sodium (Porcine) (Heparin Sodium,Porcine 5,000 Unit/Ml Vial) 7,800 unit 80 unit/kg (7800 unit) IVPUSH PROTOCOL BOLUS PRN; Protocol PRN Reason: 80 unit/kg - Heparin Protocol Heparin Sodium/Sodium Chloride (Heparin Sodium,Porcine/1/2ns) 25,000 unit in 250 mls @ 0 mls/hr IVCONT .Q0M BERNA; Protocol Last Titration: 06/11/24 02:30 Dose: 10 units/kg/hr, 9.71 mls/hr Loperamide HCl (Loperamide Hcl 2 Mg Capsule) 2 mg PO Q6H PRN PRN Reason: Loose Stool Last Admin: 06/10/24 21:49 Dose: 2 mg Magnesium Hydroxide (Milk Of Magnesia 30 Ml Oral.Susp) 30 ml PO DAILY PRN PRN Reason: Constipation Melatonin (Melatonin 3 Mg Tablet) 6 mg PO BEDTIME PRN PRN Reason: Insomnia Last Admin: 06/10/24 21:51 Dose: 6 mg Ondansetron HCl (Ondansetron Hcl 4 Mg/2 Ml Vial) 4 mg IVPUSH Q8H PRN PRN Reason: Nausea and Vomiting Sodium Chloride (0.9 % Sodium Chloride Flush 3 Ml Syringe) 3 ml IVFLUSH QSHIFT [facility] Last Admin: 06/11/24 07:37 Dose: Not Given Home Medications ?Medication ?Instructions ?Recorded ?Confirmed ?Last Taken ?Type No Known Home Meds 06/10/24 06/10/24 Unknown History Physical Exam 2 Vital Signs: Vital Signs: Last Vital Signs Temp 98.2 F 06/11/24 00:08 Pulse 67 06/11/24 00:08 Resp 18 06/11/24 00:08 BP 154/81 H 06/11/24 00:08 Pulse Ox 96 06/11/24 00:08 O2 Del Method Room Air 06/11/24 00:08 BMI result Body Mass Index 32.6 Const: General: cooperative, healthy appearing and comfortable O rientation/consciousness: oriented to person, oriented to place and oriented to time HEENT: Head: Yes normal to inspection Neck: Neck: Yes normal visual inspection Carotids: no bruits Chest: Chest palpation & inspection: normal inspection of the chest Resp: Effort & Inspection: normal respiratory effort and able to speak in complete sentences Auscultation: clear to auscultation bilaterally, no crackles, no rales, no rhonchi and no wheezes Cardio: Rate: regular rate Rhythm: regular rhythm Heart sounds: S1 normal heart sound present and S2 normal heart sound present Bruits: no carotid bruits Peripheral pulses: Peripheral pulses 2+ throughout GI: Inspection: Yes normal to inspection Skin: Wounds: no wounds Hair: normal Neuro: General: oriented to person, oriented to place and oriented to time Cranial nerves: Yes CN's II-XII intact bilaterally and Yes Normal hearing present Cognition (Neuro): normal cognition Motor exam (neuro): 5/5 motor strength present throughout Extrem: Other: venous exam: +2 edema, left greater than right General: No clubbing, No cyanosis and Yes edema Psych: Appearance: grossly normal Mental Status: mental status grossly normal Speech and movement: Normal speech and movement present Results Labs 06/11/24 04:36 06/11/24 04:36 Labs: Abnormal lab results 06/10/24 06/10/24 06/10/24 Range/Units 10:15 12:12 17:11 RBC 3.78 L 3.54 L (4.60-5.80) X10*6/uL Hgb 13.9 L (14.0-18.0) g/dl Hct 41.4 L 38.0 L (42.0-52.0) % MCV 109.5 H 107.3 H (80.0-98.0) fL MCH 39.4 H 39.3 H (27.0-33.0) pg MCHC 36.6 H (31.0-36.0) g/dl Plt Count 151 L 142 L (160-400) X10*3/uL MPV 9.1 L (9.4-12.4) fL Neut % (Auto) 86.1 H (45-73) % Lymph % (Auto) 7.9 L (20-40) % Lymph # (Auto) 0.7 L (1.2-4.9) X10*3/uL Percent Retic (0.5-1.8) % Immature Retic Fraction (2.3-13.4) % Retic Hgb Equivalent (30.0-35.0) pg PT 13.0 H 13.2 H (10.9-12.4) SEC INR (0.9-1.1) aPTT Heparin Protocol 32.5 L (53-77.9) SEC Carbon Dioxide (22-29) mmol/L BUN (9-16) mg/dL Random Glucose 143 H (60-115) mg/dL Total Bilirubin 4.6 H (0.0-1.0) mg/dL Direct Bilirubin 0.6 H (0.0-0.5) mg/dL Total Protein (6.5-8.0) g/dL Ur Specific Muse >= 1.030 H (1.005-1.025) Urine Protein 30 (1+) H (Neg-Trace) mg/dL 06/10/24 06/11/24 06/11/24 Range/Units 21:11 00:02 04:36 RBC 3.51 L 3.19 L (4.60-5.80) X10*6/uL Hgb 13.9 L 12.6 L (14.0-18.0) g/dl Hct 38.6 L 35.2 L (42.0-52.0) % MCV 110.0 H 110.3 H (80.0-98.0) fL MCH 39.6 H 39.5 H (27.0-33.0) pg MCHC (31.0-36.0) g/dl Plt Count 146 L 127 L (160-400) X10*3/uL MPV (9.4-12.4) fL Neut % (Auto) (45-73) % Lymph % (Auto) (20-40) % Lymph # (Auto) (1.2-4.9) X10*3/uL Percent Retic 2.0 H (0.5-1.8) % Immature Retic Fraction 18.9 H (2.3-13.4) % Retic Hgb Equivalent 42.0 H (30.0-35.0) pg PT 13.4 H (10.9-12.4) SEC INR 1.2 H (0.9-1.1) aPTT Heparin Protocol 109.6 H* D (53-77.9) SEC Carbon Dioxide 18 L (22-29) mmol/L BUN 17 H (9-16) mg/dL Random Glucose 162 H (60-115) mg/dL Total Bilirubin 4.6 H (0.0-1.0) mg/dL Direct Bilirubin (0.0-0.5) mg/dL Total Protein 6.0 L (6.5-8.0) g/dL Ur Specific Muse (1.005-1.025) Urine Protein (Neg-Trace) mg/dL 06/11/24 Range/Units 09:33 RBC (4.60-5.80) X10*6/uL Hgb (14.0-18.0) g/dl Hct (42.0-52.0) % MCV (80.0-98.0) fL MCH (27.0-33.0) pg MCHC (31.0-36.0) g/dl Plt Count (160-400) X10*3/uL MPV (9.4-12.4) fL Neut % (Auto) (45-73) % Lymph % (Auto) (20-40) % Lymph # (Auto) (1.2-4.9) X10*3/uL Percent Retic (0.5-1.8) % Immature Retic Fraction (2.3-13.4) % Retic Hgb Equivalent (30.0-35.0) pg PT (10.9-12.4) SEC INR (0.9-1.1) aPTT Heparin Protocol 47.8 L (53-77.9) SEC Carbon Dioxide (22-29) mmol/L BUN (9-16) mg/dL Random Glucose (60-115) mg/dL Total Bilirubin (0.0-1.0) mg/dL Direct Bilirubin (0.0-0.5) mg/dL Total Protein (6.5-8.0) g/dL Ur Specific Muse (1.005-1.025) Urine Protein (Neg-Trace) mg/dL Short CBC 06/10/24 06/10/24 06/10/24 Range/Units 10:15 17:11 21:11 WBC 8.5 7.4 9.0 (4.8-10.8) X10*3/uL Hgb 14.9 13.9 L 13.9 L (14.0-18.0) g/dl Hct 41.4 L 38.0 L 38.6 L (42.0-52.0) % Plt Count 151 L 142 L 146 L (160-400) X10*3/uL 06/11/24 Range/Units 04:36 WBC 6.0 (4.8-10.8) X10*3/uL Hgb 12.6 L (14.0-18.0) g/dl Hct 35.2 L (42.0-52.0) % Plt Count 127 L (160-400) X10*3/uL BMP 06/10/24 06/10/24 06/11/24 10:15 21:11 04:36 Sodium 141 140 139 Potassium 4.0 4.0 3.9 Chloride 107 107 107 Carbon Dioxide 26 18 L 22 BUN 16 16 17 H Creatinine 1.17 1.39 1.07 Calcium 9.7 D 8.9 D 8.9 Liver Function 06/10/24 06/11/24 Range/Units 10:15 04:36 Total Bilirubin 4.6 H 4.6 H (0.0-1.0) mg/dL Direct Bilirubin 0.6 H (0.0-0.5) mg/dL AST 17 13 (5-37) U/L ALT 18 14 (0-40) U/L Alkaline Phosphatase 47 44 (39-117) U/L Albumin 4.7 3.9 (3.5-5.0) g/dL Urine 06/10/24 Range/Units 12:12 Urine Color Dark Yellow Urine Appearance Clear Urine pH 7.0 (5.0-9.0) Ur Specific Muse >= 1.030 H (1.005-1.025) Urine Protein 30 (1+) H (Neg-Trace) mg/dL Urine Glucose (UA) Negative (Negative) mg/dL All other labs normal. Imaging Additional studies: CT scan, MRI, ultrasound was reviewed. I spent an extensive amount of time reviewing these images and subsequently had to call [facility] yesterday evening and spent nearly a 1/2 hour reviewing films with them in particular with a neuroradiologist. I disagree with the MRI finding of a total occlusion and it may be mixture of contrast. I did review the ultrasound and it is positive for thrombus in particular the left common femoral which does appear to go further down and may be acute on chronic. Right side does appear to be clean. Assessment and Plan (1) DVT (deep venous thrombosis): Qualifiers: DVT location: lower extremity Affected thrombotic vein of extremity: i liac Chronicity: acute Laterality: bilateral Qualified Code(s): I82.423 - Acute embolism and thrombosis of iliac vein, bilateral Status: Acute Plan In short patient has acute upon chronic DVT. Patient will require bilateral lower extremity mechanical venous thrombectomy. Risks benefits complications were discussed in detail with the patient along with the patient's girlfriend who was on the phone with his consent. The patient is NPO and on a heparin drip. We will schedule as soon as possible. Thank you for allowing us to assist in his care. If there are any questions or concerns please do not hesitate to contact us. Please note over 90 minutes was required for this patient care including imaging review, reaching out and discussion with neuro Radiology, discussion with the emergency room, discussion with the hospitalist team. Total time managing care of this patient today: 90 minutes. Procedures Date of Service Date of Service: 06/11/24
[2024-06-11] MEDS: 0.9 % Sodium Chloride 1,000 ML 100 ML IVCONT ×2 (10:12→20:00)
--- NOTE | 2024-06-11 10:36 | PC.NURSE ---
heparin drip adjusted per protocol, repeat order placed for later today
[2024-06-11 11:47] LABS: Adenovirus F 40/41 Not Detected (Not Detect.); Astrovirus Not Detected (Not Detect.); Campylobacter Not Detected (Not Detect.); Cryptosporidium Not Detected (Not Detect.); Cyclospora cayetanensis Not Detected (Not Detect.); E. coli EAEC Not Detected (Not Detect.); E. coli EPEC Not Detected (Not Detect.); E. coli ETEC Not Detected (Not Detect.); E. coli STEC Not Detected (Not Detect.); Entamoeba histolytica Not Detected (Not Detect.); Giardia lamblia Not Detected (Not Detect.); Norovirus GI/GII Not Detected (Not Detect.); Plesiomonas shigelloides Not Detected (Not Detect.); Rotavirus A Not Detected (Not Detect.); Salmonella Not Detected (Not Detect.); Sapovirus Not Detected (Not Detect.); Shigella sp./EIEC Not Detected (Not Detect.); Vibrio Not Detected (Not Detect.); Vibrio Cholerae Not Detected (Not Detect.); Yersinia enterocolitica Not Detected (Not Detect.)
--- NOTE | 2024-06-11 12:30 | HO.PM.IMPN ---
Subjective Subjective Date of Service: 06/11/24 Interval History: Seen and examined this morning Follow-up for extensive DVT Plan for bilateral lower extremity mechanical venous thrombectomy today No shortness of breath, no chest pain Review of Systems Review of Systems: Yes all other systems are reviewed and are negative Constitutional Constitutional: Denies chills and Denies fever(s) Cardiovascular Cardiovascular: Denies chest pain, Denies palpitations and Denies dyspnea Respiratory Respiratory: Denies cough and Denies dyspnea Endocrine Endocrine: Denies palpitations Physical Exam Vital Signs: Vital Signs: Last Vital Signs Temp 98.4 F 06/11/24 10:04 Pulse 62 06/11/24 10:04 Resp 12 06/11/24 10:04 BP 163/88 H 06/11/24 10:04 Pulse Ox 98 06/11/24 10:04 O2 Del Method Room Air 06/11/24 10:04 BMI result Body Mass Index 32.6 Objective Data Active Medications Acetaminophen (Acetaminophen 325 Mg Tablet) 650 mg PO Q6H PRN PRN Reason: Pain, Mild (Pain Scale 1-3), fever or headache Last Admin: 06/10/24 21:49 Dose: 650 mg Documented By: MARCELO Calcium Carbonate (Calcium Carbonate 750 Mg Tab.Chew) 750 mg PO Q4H PRN PRN Reason: Heartburn Heparin Sodium (Porcine) (Heparin Sodium,Porcine 5,000 Unit/Ml Vial) 3,900 unit 40 unit/kg (3900 unit) IVPUSH PROTOCOL BOLUS PRN; Protocol PRN Reason: 40 unit/kg - Heparin Protocol Heparin Sodium (Porcine) (Heparin Sodium,Porcine 5,000 Unit/Ml Vial) 7,800 unit 80 unit/kg (7800 unit) IVPUSH PROTOCOL BOLUS PRN; Protocol PRN Reason: 80 unit/kg - Heparin Protocol Heparin Sodium/Sodium Chloride (Heparin Sodium,Porcine/1/2ns) 25,000 unit in 250 mls @ 0 mls/hr IVCONT .Q0M BERNA; Protocol Last Titration: 06/11/24 10:32 Dose: 12 units/kg/hr, 11.65 mls/hr Documented By: CORETTA Co-signed By: NITA Sodium Chloride (Ns) 1,000 mls @ 100 mls/hr IVCONT .Q10H BERNA Last Admin: 06/11/24 10:12 Dose: 100 mls/hr Documented By: CORETTA Loperamide HCl (Loperamide Hcl 2 Mg Capsule) 2 mg PO Q6H PRN PRN Reason: Loose Stool Last Admin: 06/10/24 21:49 Dose: 2 mg Documented By: MARCELO Magnesium Hydroxide (Milk Of Magnesia 30 Ml Oral.Susp) 30 ml PO DAILY PRN PRN Reason: Constipation Melatonin (Melatonin 3 Mg Tablet) 6 mg PO BEDTIME PRN PRN Reason: Insomnia Last Admin: 06/10/24 21:51 Dose: 6 mg Documented By: MARCELO Ondansetron HCl (Ondansetron Hcl 4 Mg/2 Ml Vial) 4 mg IVPUSH Q8H PRN PRN Reason: Nausea and Vomiting Sodium Chloride (0.9 % Sodium Chloride Flush 3 Ml Syringe) 3 ml IVFLUSH QSHIFT [facility] Last Admin: 06/11/24 07:37 Dose: Not Given Documented By: NITA Non-Admin Reason: Patient Asleep Labs 06/11/24 04:36 06/11/24 04:36 Labs: Laboratory Results - last 24 hr 06/10/24 06/10/24 06/10/24 12:12 17:11 21:11 MCV 107.3 H 110.0 H MCH 39.3 H 39.6 H MCHC 36.6 H 36.0 RDW 13.2 13.5 Plt Count 142 L 146 L MPV 9.1 L 9.6 Immature Gran % (Auto) 0.2 Neut % (Auto) 71.8 Lymph % (Auto) 20.3 [place] % (Auto) 6.9 Eos % (Auto) 0.4 Baso % (Auto) 0.4 Lymph # (Auto) 1.8 [place] # (Auto) 0.6 Eos # (Auto) 0.0 Baso # (Auto) 0.0 Abs Immat Gran (auto) 0.02 Absolute Neuts (auto) 6.4 Absolute Nucleated RBC 0.000 0.000 Nucleated RBC % (auto) 0.0 0.0 Smear Path Review Absolute Retic Percent Retic Immature Retic Fraction Retic Hgb Equivalent PT 13.2 H INR 1.1 aPTT Heparin Protocol 32.5 L Anion Gap 19 Estim Creat Clear Calc 67.0 Estimated GFR 53 Random Glucose 162 H Haptoglobin Calcium 8.9 D Total Bilirubin AST ALT Alkaline Phosphatase Lactate Dehydrogenase Total Protein Albumin TSH Urine RBC 0-2 Urine WBC 0-5 Ur Squamous Epith Cells 0-2 Urine Bacteria None Seen Hyaline Casts 3-5 Stool Occult Blood Stl C. cayetanensis PCR Stool Rotavirus A PCR Stl Adenov F PCR Stool Astrovirus (PCR) Stool Campylobacter PCR Stool Cryptosporidium PCR Stl Sh Tox Pr E STEC PCR Stool E coli O157 PCR Stl Enterotoxigenic E PCR Stool EPEC (PCR) Stool EAEC (PCR) Stl E. histolytica PCR Stool Giardia Lamblia PCR Stl P. shigelloides PCR Stool Salmonella PCR Stool Sapovirus (PCR) Stl Shigella/EIEC PCR St Y.enterocolitica PCR Stool Vibrio (PCR) Stl Vibrio cholerae PCR Stl Norovirus GI/GII PCR Chlam trachomat DNA PCR NOT DETECTED C. difficile Tox B Gene N.gonorrhoeae DNA (PCR) NOT DETECTED 06/10/24 06/11/24 06/11/24 21:17 00:02 01:41 MCV MCH MCHC RDW Plt Count MPV Immature Gran % (Auto) Neut % (Auto) Lymph % (Auto) [place] % (Auto) Eos % (Auto) Baso % (Auto) Lymph # (Auto) [place] # (Auto) Eos # (Auto) Baso # (Auto) Abs Immat Gran (auto) Absolute Neuts (auto) Absolute Nucleated RBC Nucleated RBC % (auto) Smear Path Review Absolute Retic Percent Retic Immature Retic Fraction Retic Hgb Equivalent PT INR aPTT Heparin Protocol 109.6 H* D 59.3 D Anion Gap Estim Creat Clear Calc Estimated GFR Random Glucose Haptoglobin Calcium Total Bilirubin AST ALT Alkaline Phosphatase Lactate Dehydrogenase Total Protein Albumin TSH Urine RBC Urine WBC Ur Squamous Epith Cells Urine Bacteria Hyaline Casts Stool Occult Blood NEGATIVE Stl C. cayetanensis PCR Not Detected Stool Rotavirus A PCR Not Detected Stl Adenov F PCR Not Detected Stool Astrovirus (PCR) Not Detected Stool Campylobacter PCR Not Detected Stool Cryptosporidium PCR Not Detected Stl Sh Tox Pr E STEC PCR Not Detected Stool E coli O157 PCR Not applicable Stl Enterotoxigenic E PCR Not Detected Stool EPEC (PCR) Not Detected Stool EAEC (PCR) Not Detected Stl E. histolytica PCR Not Detected Stool Giardia Lamblia PCR Not Detected Stl P. shigelloides PCR Not Detected Stool Salmonella PCR Not Detected Stool Sapovirus (PCR) Not Detected Stl Shigella/EIEC PCR Not Detected St Y.enterocolitica PCR Not Detected Stool Vibrio (PCR) Not Detected Stl Vibrio cholerae PCR Not Detected Stl Norovirus GI/GII PCR Not Detected Chlam trachomat DNA PCR C. difficile Tox B Gene NEGATIVE N.gonorrhoeae DNA (PCR) 06/11/24 06/11/24 04:36 09:33 MCV 110.3 H MCH 39.5 H MCHC 35.8 RDW 13.6 Plt Count 127 L MPV 9.4 Immature Gran % (Auto) 0.3 Neut % (Auto) 66.6 Lymph % (Auto) 25.8 [place] % (Auto) 5.8 Eos % (Auto) 1.0 Baso % (Auto) 0.5 Lymph # (Auto) 1.6 [place] # (Auto) 0.4 Eos # (Auto) 0.1 Baso # (Auto) 0.0 Abs Immat Gran (auto) 0.02 Absolute Neuts (auto) 4.0 Absolute Nucleated RBC 0.000 Nucleated RBC % (auto) 0.0 Smear Path Review SEE NOTE Absolute Retic 0.063 Percent Retic 2.0 H Immature Retic Fraction 18.9 H Retic Hgb Equivalent 42.0 H PT 13.4 H INR 1.2 H aPTT Heparin Protocol 47.8 L Anion Gap 14 Estim Creat Clear Calc 87.1 Estimated GFR > 60 Random Glucose 103 Haptoglobin 67 Calcium 8.9 Total Bilirubin 4.6 H AST 13 ALT 14 Alkaline Phosphatase 44 Lactate Dehydrogenase 236 Total Protein 6.0 L Albumin 3.9 TSH 0.61 Urine RBC Urine WBC Ur Squamous Epith Cells Urine Bacteria Hyaline Casts Stool Occult Blood Stl C. cayetanensis PCR Stool Rotavirus A PCR Stl Adenov F 40/41 PCR Stool Astrovirus (PCR) Stool Campylobacter PCR Stool Cryptosporidium PCR Stl Sh Tox Pr E STEC PCR Stool E coli O157 PCR Stl Enterotoxigenic E PCR Stool EPEC (PCR) Stool EAEC (PCR) Stl E. histolytica PCR Stool Giardia Lamblia PCR Stl P. shigelloides PCR Stool Salmonella PCR Stool Sapovirus (PCR) Stl Shigella/EIEC PCR St Y.enterocolitica PCR Stool Vibrio (PCR) Stl Vibrio cholerae PCR Stl Norovirus GI/GII PCR Chlam trachomat DNA PCR C. difficile Tox B Gene N.gonorrhoeae DNA (PCR) Assessment and Plan (1) DVT (deep venous thrombosis): Status: Acute Plan This is a 54-year-old male with pertinent history of DVT and PE with IVC filter, currently not on anticoagulation, hypertension who presents to the emergency department for evaluation of leg pain. Acute DVT, extensive: Continue IV heparin Seen by Vascular surgery, plan for bilateral lower extremity mechanical venous thrombectomy today Unconjugated hyperbilirubinemia: TSH, LDH normal Hepatic steatosis on imaging. haptoglobin, retic count pending stable back pain/leg weakness Possibly due to extensive deep central venous thrombosis MRI showing mild canal stenosis with mild mass effect on L5 nerve roots bilaterally If no improvement after thrombectomy we will consider Neurology evaluation htn Not currently on any medication Blood pressure elevated, possibly due to pain Monitor blood pressure closely, may need to be started on blood pressure medication Circumferential wall thickening of bladder seen on CT scan UA negative Thrombocytopenia Hepatic steatosis on imaging Outpatient follow-up, follows with Hematology DVT prophylaxis: IV heparin Full code We will require ongoing inpatient stay hospital stay for IV heparin (as above), and acute surgical intervention which is not possible in a lesser acute setting Quality Stroke Does the patient have a stroke diagnosis?: No VTE Prior VTE?: No VTE Risk Level:: Medical - moderate - high VTE Device Contraindication: Treatment Not Indicated VTE Drug Contraindication: N/A - Med Ordered
--- NOTE | 2024-06-11 17:05 | P.OP_ITS ---
Operative Note Operative Note Date of Service: 06/11/24 Narrative: Operative note by [facility] Preoperative diagnosis: Deep venous thrombosis of left lower extremity and inferior vena cava Postoperative diagnosis: Same Procedure: 1 Ultrasound-guided left popliteal vein access 2. Inferior vena cavogram 3. Percutaneous transluminal venous mechanical thrombectomy ([id number]) 4. Radiologic super visual and interpretation 5. Percutaneous mechanical venous thrombectomy of inferior vena cava. Surgeon:Munir Covarrubias M.D. Service Desk Manager: None Anesthesia: Local with moderate conscious sedation. Total intra service moderate sedation time was 165 minutes. I monitored the patient's level of consciousness and physiologic status continuously throughout the procedure Specimen: None Drains: None Estimated blood loss: 50 mL Implant: None Comorbid conditions: Prior history of DVT, prior history of PE, polycythemia, obesity Indications: Very pleasant 54-year-old gentleman presented to the emergency department with lower extremity pain and swelling and was worked up and noted to have a DVT. Has a prior history of DVT with PE and IVC filter dating back to 2002. He has been off of anticoagulation over the past 5 years. The pain was so debilitating that he could not ambulate. He now presents for endovascular intervention. The plan of care is mechanical thrombectomy of the lower extremity veins. The patient has signed the informed consent after reviewing risks, complications, benefits, and alternatives previously discussed with the patient. The patient was given the opportunity to ask any additional questions or voice any concerns. All questions were answered to the patient's satisfaction. Procedure in detail: Patient was brought to the Angiography suite prior to which a time-out was called for patient identification and site verification. The patient was placed in a prone position. Bilateral popliteal fossas were prepped out. We first access the left popliteal vein under ultrasound guidance. We then placed a percutaneous 5 Cymraes sheath. We were then able to traverse the clot with a Glidewire Advantage 035 wire. We brought the wire up and over into the contralateral left lower extremity venous system. We brought in a trail Blazer catheter to confirmed true lumen. At this time 10,000 units of heparin was administered. After 5 minutes of circulation time we then dilated up the tract. ACT was achieved to a therapeutic number The Clot Triever over the wire system was then brought into position. We placed the clot triever sheath and exposed the self expanding Nitinol mesh funnel to facilitate clot removal for large-bore side port rapid aspiration. Once this was accomplished we then advanced over the wire the clot triever catheter with the coring element and braided collection bag. This was brought into the inferior vena cava up past this occlusion and extracted back. We did 4 sequential passes. The main angle of the catheter was placed at the 12:00 o'clock, 03:00 o'clock, 06:00 o'clock, and 09:00 o'clock positions. After each pass had been completed, large amount of clot was removed. After each subsequent pass the clot was removed and it was flushed clear and we then brought it in again through this area. Completion venogram demonstrated an excellent result. The main concern here was the vena cava. The inferior portion of the vena cava was patent and the portion above the IVC filter was patent. The area right at the filter was completely occluded. It appeared that the filter was in a lower than normal anatomic position. At this time we made the decision to bring in a flow true fever. This was placed through the prior sheath. In addition we had placed the wire through the vena cava through the filter struts up through into the superior vena cava. Once again this was the 035 glidewire Advantage. We then used the flow tree for device. This was brought into the inferior vena cava. Multiple aspirations of this was performed and the blood was passed through the flow triever. Blood was returned once filtered through the flow Saver system. Several passes of this had to be performed. We did get some resolution of the clot in the inferior vena cava but there was residual thrombus around the filter itself. Due to the amount of time and contrast use decision was made to terminate the procedure. We subsequently removed catheter wire in sheath. Pursestring suture was placed Direct pressure was held for 10 minutes. Sterile dressing was applied. Patient was brought to the recovery room with stable vitals. Interpretation of films: 1. Ultrasound was used to evaluate access site. Popliteal vein did note to have thrombus. Ultrasound was used to visualize needle entry. Image of ultrasound was saved on PACS 2. Vena cavogram demonstrated thrombus in the distal vena cava at the site of the filter along the end attire iliofemoral system down into the popliteal vein. 3. Completion vena cavogram demonstrated resolution of clot of the left lower extremity. There was residual clot at the level of the filter itself. Conclusion: 1. Successful mechanical clot removal. 2. Anticoagulation status: Resume heparin drip in 4 hours. Tomorrow may start oral anticoagulation. This note is constructed using voice recognition software. While every effort has been made to ensure accuracy, documentation designer errors may have been included. Thank you for allowing me to participate in the care of your patient. Yours sincerely, Munir Covarrubias MD, FACS, R.P.V.I.
[2024-06-11 18:01] LABS: PTT Heparin Drip 173.9 SEC (53-77.9)
[2024-06-11 19:21] LABS: PTT Heparin Drip 81.2 SEC (53-77.9)
[2024-06-11] MEDS: Acetaminophen 325 MG TABLET 650 MG PO (20:00)
[2024-06-11] MEDS: Heparin Sodium,Porcine/1/2NS 25,000 UNIT/250 ML IV.SOLN 7.77 UNIT IVCONT (20:01)
[2024-06-11] MEDS: Melatonin 3 MG TABLET 6 MG PO (22:42)
[2024-06-11] MEDS: 0.9 % Sodium Chloride Flush 3 ML SYRINGE IVFLUSH (22:43)
[2024-06-12 02:25] LABS: PTT Heparin Drip 40.7 SEC (53-77.9)
[2024-06-12] MEDS: Heparin Sodium,Porcine 5,000 UNIT/ML VIAL 3900 UNIT IVPUSH (02:37)
[2024-06-12 03:16] VITALS: BP 142/78; PULSE 57; RESP 20; TEMP 36.7; O2SAT 96
[2024-06-12] MEDS: 0.9 % Sodium Chloride 1,000 ML 100 ML IVCONT (05:33)
[2024-06-12 07:32] LABS: Hematocrit 33.5 % (42.0-52.0); Hemoglobin 11.8 g/dl (14.0-18.0); Mean Corpuscular HGB Conc 35.2 g/dl (31.0-36.0); Mean Corpuscular Hemoglobin 39.6 pg (27.0-33.0); Mean Platelet Volume 9.2 fL (9.4-12.4); Platelet Count 114 X10*3/uL (160-400); Red Blood Count 2.98 X10*6/uL (4.60-5.80); Red Cell Distribution Width 13.2 % (11.0-16.0); White Blood Count 4.9 X10*3/uL (4.8-10.8)
[2024-06-12 07:33] LABS: Mean Corpuscular Volume 112.4 fL (80.0-98.0)
[2024-06-12 07:40] VITALS: BP 169/88; PULSE 60; RESP 20; TEMP 36.7; O2SAT 98
[2024-06-12 08:03] LABS: Anion Gap 12 (12-20); Blood Urea Nitrogen 16 mg/dL (9-16); Calcium 8.3 mg/dL (8.4-10.2); Carbon Dioxide 22 mmol/L (22-29); Chloride 109 mmol/L (96-108); Creatinine Clr Calc Pharmacy 107.1; Estimated Glomerular Filt Rate > 60; Glucose Random 104 mg/dL (60-115); Sodium 139 mmol/L (135-145)
[2024-06-12] MEDS: 0.9 % Sodium Chloride Flush 3 ML SYRINGE IVFLUSH ×2 (08:09→15:55)
[2024-06-12 08:45] LABS: ACT 346 Celite s (79-173)
[2024-06-12 08:45] LABS: ACT 112 Celite s (79-173)
[2024-06-12 08:45] LABS: ACT 228 Celite s (79-173)
[2024-06-12 08:45] LABS: ACT 272 Celite s (79-173)
[2024-06-12 08:55] LABS: PTT Heparin Drip 41.8 SEC (53-77.9)
[2024-06-12] MEDS: Apixaban 5 MG TABLET 10 MG PO (09:09)
--- NOTE | 2024-06-12 09:37 | MHC.CM.PN ---
Pt. lives alone, is independent, no home health services or DME. He is in the process of completing a HCP, naming his sister, copy requested. He is able to arrange transport home at DC. DCP: home, self care. CM will follow for DC needs.
--- NOTE | 2024-06-12 10:25 | P.PNVS_ITS ---
Subjective Subjective Date of Service: 06/12/24 Patient reports: no new complaints and feels better Interval history: Very pleasant 54-year-old gentleman presents for follow-up status post thrombectomy yesterday. Appears to be doing relatively well. No events henrik rnight. Reports that his pain and discomfort have significantly improved. Now for postprocedure follow-up. Of note right IJ line was removed and discontinued. Physical Exam Vital Signs: Vital Signs: Last Vital Signs Temp 98.0 F 06/12/24 07:40 Pulse 60 06/12/24 07:40 Resp 20 06/12/24 07:40 BP 169/88 H 06/12/24 07:40 Pulse Ox 98 06/12/24 07:40 O2 Del Method Room Air 06/12/24 03:16 BMI result Body Mass Index 32.6 Const: General: cooperative, healthy appearing and comfortable Orientation/consciousness: oriented to person, oriented to place and oriented to time HEENT: Head: Yes normal to inspection Neck: Neck: Yes normal visual inspection Carotids: no bruits Chest: Chest palpation & inspection: normal inspection of the chest Resp: Effort & Inspection: normal respiratory effort and able to speak in complete sentences Auscultation: clear to auscultation bilaterally, no crackles, no rales, no rhonchi and no wheezes Cardio: Rate: regular rate Rhythm: regular rhythm Heart sounds: S1 normal heart sound present and S2 normal heart sound present Bruits: no carotid bruits Peripheral pulses: Peripheral pulses 2+ throughout GI: Inspection: Yes normal to inspection Skin: Wounds: no wounds Hair: normal Neuro: General: oriented to person, oriented to place and oriented to time Cranial nerves: Yes CN's II-XII intact bilaterally and Yes Normal hearing present Cognition (Neuro): normal cognition Motor exam (neuro): 5/5 motor strength present throughout Extrem: Other: venous exam: No significant superficial varicosities or spider telangiectasias, minimal edema General: No clubbing, No cyanosis and No edema Psych: Appearance: grossly normal Mental Status: mental status grossly normal Speech and movement: Normal speech and movement present Progress Note: A&P Assessment and plan (1) DVT (deep venous thrombosis): Status: Acute Plan In short patient is doing extremely well status post mechanical venous thrombectomy. No postprocedure issues. Can be transitioned over to oral anticoagulants. We did discuss that in the future we may require IVC filter removal. He does have thrombus surrounding this. He will require lifelong anticoagulation. He does have established care with Dr. Almanza and may follow up with her as well. Once again stable from my perspective for discharge and can be seen by me as an outpatient in approximately 2 weeks time. Thank you for allowing us to assist in his care. Time Spent With Patient Time: Total time managing care of this patient today ____ minutes. Procedures Date of Service Date of Service: 06/12/24 Quality Stroke Does the patient have a stroke diagnosis?: No VTE Prior VTE?: No VTE Risk Level:: Medical - moderate - high VTE Device Contraindication: Treatment Not Indicated VTE Drug Contraindication: N/A - Med Ordered
--- NOTE | 2024-06-12 10:36 | P.DS_ITS ---
DS: Providers Provider Date of Service: 06/12/24 Date of admission: 06/10/24 19:14 Date of discharge: 06/12/24 Primary care physician: Wyatt Buck MD Consults: 06/10/24 17:46 Consult to Vascular Surgery Stat Consulting Provider: [facility] Reason for consultation: DVT of iliac veins and inferior vena cava Has provider been notified: Yes 06/11/24 12:41 Consult to Hematology / Oncology Routine Consulting Provider: [facility] Oncology/Hematology Reason for consultation: recurrent extensive DVT Has provider been notified: No Attending physician on discharge: Aurelio Pelaez Discharging clinician: Shantell Bryan DS: Diagnosis Discharge Diagnosis (1) DVT (deep venous thrombosis): Status: Acute DS: Summary Hospital Course Hospital Course: From H&P on the day of admission This is a 54-year-old male with pertinent history of DVT and PE with IVC filter, currently not on anticoagulation, hypertension who presents to the emergency department for evaluation of leg pain. He has been off anticoagulation for the last 5 years. Patient states he also stopped taking lisinopril since he was having a headache. Currently he is not on any prescription medications. Patient's symptoms started 1 day prior to presentation. He has been having bilateral leg pain and lower back pain. Pain worsened to the point that he could not walk. No fever, chills, chest discomfort, palpitations, shortness of breath, abdominal pain, changes in urinary or bowel habits. In the emergency department, imaging with 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. Vascular surgery was consulted who requested admission with IV heparin. Acute DVT, extensive: Initially treated with IV heparin drip, seen by vascular surgery and underwent percutaneous transluminal venous mechanical thrombectomy, venous thrombectomy of inferior vena cava. Recommended to transition IV heparin to oral Eliquis anticoagulation. We will likely need lifelong anticoagulation. Follows with Hematology, recommend to follow up as outpatient Unconjugated hyperbilirubinemia, acute on chronic. no abdominal pain. Hepatic steatosis on imaging. Recommend outpatient follow-up with PCP back pain Likely due to extensive deep central venous thrombosis. MRI showing mild canal stenosis with mild mass effect on L5 nerve roots bilaterally. Recommend outpatient follow-up with PCP htn Previously on lisinopril but was having side effects related to that medication and this was stopped. Reportedly blood pressure was better as an outpatient but has been elevated here. We will start low-dose Norvasc and can continue titration as outpatient Circumferential wall thickening of bladder seen on CT scan UA negative Thrombocytopenia Hepatic steatosis on imaging Outpatient follow-up, follows with Hematology Time Attestation Discharge Coordination Time (in mins): 36 Quality: Safe Use of Opioids Does Pt have an Active Cancer Diagnosis on the Problem List?: No Quality: Stroke Does the patient have a stroke diagnosis?: No Physical Exam Vital Signs: Vital Signs: Last Vital Signs Temp 98.0 F 06/12/24 07:40 Pulse 60 06/12/24 07:40 Resp 20 06/12/24 07:40 BP 169/88 H 06/12/24 07:40 Pulse Ox 98 06/12/24 07:40 O2 Del Method Room Air 06/12/24 03:16 BMI result Body Mass Index 32.6 Const: General: cooperative, comfortable, no acute distress, alert and awake Nutritional Appearance: average body habitus Orientation/consciousness: patient oriented x3 Resp: Effort & Inspection: normal respiratory effort, able to speak in complete sentences, no respiratory distress and no use of accessory muscles Cardio: Rate: regular rate GI: Inspection: No distended Palpation (GI): Soft to palpation and nontender Neuro: General: patient oriented x3, moves all extremities and CN's II-XI intact bilaterally Extrem: General: Yes no pedal edema DS: Data Data Completed and Pending Labs on day of discharge: Laboratory Results - last 24 hr 06/10/24 06/11/24 06/11/24 21:17 11:56 12:22 WBC RBC Hgb Hct MCV MCH MCHC RDW Plt Count MPV Absolute Nucleated RBC Nucleated RBC % (auto) Hold Purple Top aPTT Heparin Protocol Activated Clotting Time 112 272 H Sodium Potassium Chloride Carbon Dioxide Anion Gap BUN Creatinine Estim Creat Clear Calc Estimated GFR Random Glucose Calcium Stl C. cayetanensis PCR Not Detected Stool Rotavirus A PCR Not Detected Stl Adenov F 40/ PCR Not Detected Stool Astrovirus (PCR) Not Detected Stool Campylobacter PCR Not Detected Stool Cryptosporidium PCR Not Detected Stl Sh Tox Pr E STEC PCR Not Detected Stool E coli O157 PCR Not applicable Stl Enterotoxigenic E PCR Not Detected Stool EPEC (PCR) Not Detected Stool EAEC (PCR) Not Detected Stl E. histolytica PCR Not Detected Stool Giardia Lamblia PCR Not Detected Stl P. shigelloides PCR Not Detected Stool Salmonella PCR Not Detected Stool Sapovirus (PCR) Not Detected Stl Shigella/EIEC PCR Not Detected St Y.enterocolitica PCR Not Detected Stool Vibrio (PCR) Not Detected Stl Vibrio cholerae PCR Not Detected Stl Norovirus GI/GII PCR Not Detected 06/11/24 06/11/24 06/11/24 13:57 14:08 17:20 WBC RBC Hgb Hct MCV MCH MCHC RDW Plt Count MPV Absolute Nucleated RBC Nucleated RBC % (auto) Hold Purple Top aPTT Heparin Protocol 173.9 H* D Activated Clotting Time 346 H 228 H Sodium Potassium Chloride Carbon Dioxide Anion Gap BUN Creatinine Estim Creat Clear Calc Estimated GFR Random Glucose Calcium Stl C. cayetanensis PCR Stool Rotavirus A PCR Stl Adenov F / PCR Stool Astrovirus (PCR) Stool Campylobacter PCR Stool Cryptosporidium PCR Stl Sh Tox Pr E STEC PCR Stool E coli O157 PCR Stl Enterotoxigenic E PCR Stool EPEC (PCR) Stool EAEC (PCR) Stl E. histolytica PCR Stool Giardia Lamblia PCR Stl P. shigelloides PCR Stool Salmonella PCR Stool Sapovirus (PCR) Stl Shigella/EIEC PCR St Y.enterocolitica PCR Stool Vibrio (PCR) Stl Vibrio cholerae PCR Stl Norovirus GI/GII PCR 06/11/24 06/12/24 06/12/24 18:59 02:09 06:52 WBC 4.9 RBC 2.98 L Hgb 11.8 L Hct 33.5 L MCV 112.4 H MCH 39.6 H MCHC 35.2 RDW 13.2 Plt Count 114 L MPV 9.2 L Absolute Nucleated RBC 0.000 Nucleated RBC % (auto) 0.0 Hold Purple Top SEE NOTE aPTT Heparin Protocol 81.2 H D 40.7 L D Activated Clotting Time Sodium 139 Potassium 4.0 Chloride 109 H Carbon Dioxide 22 Anion Gap 12 BUN 16 Creatinine 0.87 Estim Creat Clear Calc 107.1 Estimated GFR > 60 Random Glucose 104 Calcium 8.3 L D Stl C. cayetanensis PCR Stool Rotavirus A PCR Stl Adenov F PCR Stool Astrovirus (PCR) Stool Campylobacter PCR Stool Cryptosporidium PCR Stl Sh Tox Pr E STEC PCR Stool E coli O157 PCR Stl Enterotoxigenic E PCR Stool EPEC (PCR) Stool EAEC (PCR) Stl E. histolytica PCR Stool Giardia Lamblia PCR Stl P. shigelloides PCR Stool Salmonella PCR Stool Sapovirus (PCR) Stl Shigella/EIEC PCR St Y.enterocolitica PCR Stool Vibrio (PCR) Stl Vibrio cholerae PCR Stl Norovirus GI/GII PCR 06/12/24 08:38 WBC RBC Hgb Hct MCV MCH MCHC RDW Plt Count MPV Absolute Nucleated RBC Nucleated RBC % (auto) Hold Purple Top aPTT Heparin Protocol 41.8 L Activated Clotting Time Sodium Potassium Chloride Carbon Dioxide Anion Gap BUN Creatinine Estim Creat Clear Calc Estimated GFR Random Glucose Calcium Stl C. cayetanensis PCR Stool Rotavirus A PCR Stl Adenov F 40 PCR Stool Astrovirus (PCR) Stool Campylobacter PCR Stool Cryptosporidium PCR Stl Sh Tox Pr E STEC PCR Stool E coli O157 PCR Stl Enterotoxigenic E PCR Stool EPEC (PCR) Stool EAEC (PCR) Stl E. histolytica PCR Stool Giardia Lamblia PCR Stl P. shigelloides PCR Stool Salmonella PCR Stool Sapovirus (PCR) Stl Shigella/EIEC PCR St Y.enterocolitica PCR Stool Vibrio (PCR) Stl Vibrio cholerae PCR Stl Norovirus GI/GII PCR Discharge Plan Discharge Anticipated Discharge Date/Time: 06/12/24 11:18 Patient Disposition: Home, Self-Care Discharge Diagnosis: Extensive DVT Thrombocytopenia Hepatic steatosis Elevated bilirubin Referrals: Wyatt Buck MD [Primary Care Provider] - 1 Week Kenia Almanza MD [Physician] - 1 Week (extensive DVT, thrombocytopenia ) Discharge Medications: New Eliquis 5 mg tablet 5 mg PO BID 90 Days Qty: 190 0RF Rx Instructions: Take 2 tabs twice daily until June 18 and then take 1 tab twice daily after that amlodipine 5 mg Tablet 5 mg PO DAILY 90 Days Qty: 90 0RF Protocol: Hold for SBP< HOLD for SBP < : 90 Discharge Orders: Discharge Order (Routine); Ordered 06/12/24 Ordered By: Shantell Bryan Activity on Discharge: As tolerated Stand Alone Forms: Patient Portal Discharge page Print Language: Chilean Care Plan Goals: See below Health Concerns: Extensive DVT s/p thrombectomy Elevated bilirubin Thrombocytopenia Uncontrolled hypertension Plan of Treatment: Extensive DVT, started on Eliquis. 10 Mg twice daily until June 18 and then 5 mg twice daily moving forward. Outpatient follow-up with Hematology Recommend to start Norvasc for control of blood pressure. Outpatient follow-up with PCP Incidental findings of bladder wall thickening without UTI, thrombocytopenia, hepatic steatosis, elevated bilirubin and lumbar spine spondylosis will require outpatient follow up with PCP Assessment: See discharge summary
[2024-06-12] MEDS: amLODIPine Besylate 5 MG TABLET PO (12:26)
--- NOTE | 2024-06-12 14:17 | MHC.CM.PN ---
pt has been medically cleared for DC, he will go home via private transport, plan is self care.
[2024-06-12 15:53] VITALS: BP 159/79; PULSE 78; RESP 20; TEMP 35.9; O2SAT 98
[2024-06-12] MEDS: oxyCODONE HCl Immed Release 5 MG TABLET PO (15:54)
== END 2024-06-12 16:20 | disposition home or self-care (01) | DRG 169 ==
LOC: HO.ED 17:45 → HO.EDOVER 19:19 → HO.IMC 06-11 15:30
PROVIDERS: Physician Assistant Medical; Surgery Vascular Surgery; Admitting Provider Student in an Organized Health Care Education/Training Program; Emergency Provider Emergency Medicine; PCP Internal Medicine; Visit Provider Physician Assistant Medical
PROC: 06C03ZZ Extirpation of Matter from Inferior Vena Cava, Percutaneous Approach (ICD-10-PCS; principal; 2024-06-11 11:00)
DX: I82.220 Acute embolism and thrombosis of inferior vena cava (principal); D69.6 Thrombocytopenia, unspecified; I82.412 Acute embolism and thrombosis of left femoral vein; K76.0 Fatty (change of) liver, not elsewhere classified; I82.423 Acute embolism and thrombosis of iliac vein, bilateral; I82.432 Acute embolism and thrombosis of left popliteal vein; Z20.822 Contact with and (suspected) exposure to COVID-19; Z87.891 Personal history of nicotine dependence; Z91.148 Patient's other noncompliance with medication regimen for other reason
CPT/HCPCS: 0241U; 36415; 37187; 72158; 74177; 76937; 80048; 80053; 80076; 81001; 81003; 82272; 83010; 83615; 83690; 84443; 84484; 85025; 85027; 85045; 85347; 85610; 85652; 85730; 86140; 87491; 87493; 87507; 87591; 93005; 93970; 99152; 99153; 99285; A9585; C1725; C1757; C1769; C1887; C1894; J1644; J2060; J7120; Q9967

== ENCOUNTER → 2024-06-10 19:14 | Outpatient (BNV) | payer BC, SELFPAY | PROVIDERS: Admitting Provider Student in an Organized Health Care Education/Training Program; Emergency Provider Emergency Medicine; PCP Internal Medicine; Visit Provider Student in an Organized Health Care Education/Training Program | DX: I82.423 Acute embolism and thrombosis of iliac vein, bilateral (principal) | CPT/HCPCS: 99222; 99233; 99239 ==

== ENCOUNTER → 2024-06-10 19:14 | Outpatient (BNV) | payer BC, SELFPAY | PROVIDERS: Admitting Provider Student in an Organized Health Care Education/Training Program; Emergency Provider Emergency Medicine; PCP Internal Medicine; Visit Provider Surgery Vascular Surgery | DX: I82.402 Acute embolism and thrombosis of unspecified deep veins of left lower extremity (principal) | CPT/HCPCS: 37187; 99223; 99232 ==

== ENCOUNTER 2024-06-25 15:04 | Outpatient (AMB) | payer BC, SELFPAY ==
--- NOTE | 2024-06-25 15:12 | A.OFFVIS_ITS ---
Vital Signs 06/25/24 15:13 Height 5 ft 8 in Weight 217 lb BMI 33.0 Intake Visit Reasons: 2 week post op Thrombectomy 06/11/24 Intake Note: Patient presents for 2 week post op thrombectomy. Patient is walking with a limp. Patient's left leg is visibly swollen. States the swelling goes down at night. Leg feels tight and warm. Accompanied by: Self / Same As Patient Allergies No Known Allergies Allergy (Verified 06/26/24 09:04) HPI HPI 2 week post op Thrombectomy 06/11/24: Details: Very pleasant 54-year-old gentleman presents for follow-up status post venous thrombectomy in the operating room. It been done on 06/11/2024. Reports that he did well postprocedure but has continuous swelling of bilateral lower extremities. Now presents for routine follow-up. No other interval issues. He is currently being maintained on Eliquis.. He is being followed by Hematology- Oncology by Dr. Almanza. Of note he has a history of polycythemia vera [facility] Medical History Erectile dysfunction Erythrocytosis Vitamin D deficiency Pure hypercholesterolemia Basal cell carcinoma of skin of right upper eyelid, including canthus Peripheral vascular disease History of polycythemia History of pulmonary embolism Erectile dysfunction History of DVT of lower extremity Insomnia Anxiety Rash Surgical History S/P IVC filter Family History Father Diabetes Mother Diabetes Social History Household Members: None Housing: Apartment Do you presently have visiting nurse or other home services: No Alcohol intake: current Alcohol intake frequency: holidays/special occasions only Patient Tobacco Use Status: Former Tobacco user Tobacco use type: Cigarette e-Cigarette/Vaping Use: Never Used Second Hand Smoke Exposure: No service: No Current occupational status: employed 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 Cognitive needs: No Hearing needs: No Vision needs: Yes (Reading Glasses) Review of Systems Const Reports as per HPI ENT Reports no additional complaints Card Denies chest pain, Denies chest pain at rest and Denies chest pain with activity Resp Denies chest congestion and Denies cough GI Reports no additional complaints Musc Details: pain over varicosities, aching of lower extremities, swelling, cramping, heaviness and tiredness, itching Denies abnormal gait Skin/Breast Reports pruritus and Denies wounds Neuro Reports no additional complaints and Denies abnormal gait Psych Denies no additional complaints Physical Exam Vital Signs: BMI result Body Mass Index 33.0 Const General: cooperative, healthy appearing and comfortable Orientation/consciousness: oriented to person, oriented to place and oriented to time Neck Carotids: no bruits Chest Chest palpation & inspection: normal inspection of the chest and normal palpation of entire chest wall Resp Effort & Inspection: normal respiratory effort and able to speak in complete sentences Cardio Rate: regular rate Heart sounds: S1 normal heart sound present and S2 normal heart sound present Peripheral pulses: Peripheral pulses 2+ throughout GI Inspection: Yes normal to inspection Skin Other: +2 edema, beginning of ulceration bilateral lower extremity General skin exam: dry skin Neuro General: oriented to person, oriented to place and oriented to time Extrem Right lower extremity: full ROM, normal capillary refill and edema Left lower extremity: full ROM, normal capillary refill and edema Psych Mental Status: mental status grossly normal Assessment & Plan Assessment & Plan (1) DVT (deep venous thrombosis): Comment: 09/15/2002 - IVC filter placement Kevin Valverde by Dr. Coto Code(s): I82.409 - Acute embolism and thrombosis of unspecified deep veins of unspecified lower extremity Category: Medical Qualifiers: Affected thrombotic vein of extremity: iliac Chronicity: acute DVT location: lower extremity Laterality: bilateral Qualified Code(s): I82.423 - Acute embolism and thrombosis of iliac vein, bilateral Plan: In short patient is doing well status post mechanical venous thrombectomy. Unfortunately I do believe that the filter is the tinnitus of this clot. The filter will need to come out. He will require IVC filter removal and possible further mechanical venous thrombectomy. Risks benefits complications of the procedure were discussed in detail with the patient patient agreed and consented. The patient was given opportunity to ask any additional questions or voice concerns. All questions were answered to the patient's satisfaction. Thank you for allowing us to assist in this patient's care. If there are any questions or concerns please do not hesitate to contact us. Coding Level of Care Code Est Pt Level 4 (58902) Diagnoses Acute deep vein thrombosis (DVT) of iliac vein of both lower extremities I82.423 Affected thrombotic vein of extremity: iliac Chronicity: acute DVT location: lower extremity Laterality: bilateral
[2024-06-25 15:13] VITALS: BMI 33.0
== END 2024-06-25 16:00 | disposition home or self-care (01) ==
PROVIDERS: PCP Internal Medicine; Visit Provider Surgery Vascular Surgery
DX: I82.423 Acute embolism and thrombosis of iliac vein, bilateral (principal)
CPT/HCPCS: 99214

== ENCOUNTER → 2024-06-25 15:04 | Outpatient (BNVA) | payer BC, SELFPAY | PROVIDERS: PCP Internal Medicine; Visit Provider Surgery Vascular Surgery ==

== ENCOUNTER 2024-06-26 08:41 | Outpatient (AMB) | payer BC, SELFPAY ==
[2024-06-26 09:02] VITALS: BP 148/80; PULSE 72; O2SAT 97; BMI 33.3
--- NOTE | 2024-06-26 09:02 | MHC.PC.OV ---
Vital Signs 06/26/24 09:02 Height 5 ft 8 in Weight 219 lb BMI 33.3 BP 148/80 H Blood Pressure Location Lt brachial Position Sitting Pulse 72 Pulse Source Pulse Oximeter Pulse Oximetry (%) 97 Oxygen Delivery Method Room Air Intake Visit Reasons: tcm weakness 06/12 discharge Patient Support Representative Required: No Accompanied by: Self / Same As Patient Allergies No Known Allergies Allergy (Verified 06/26/24 09:04) Tobacco use date assessed: 12/24/23 Dental Screening Dental Screen Date: 12/24/23 [facility] TCM TCM Information Date of Discharge 06/12/24 Discharged From [facility] HPI Comments History of Present Illness Details 54 y/o male patient who presents to the clinic today for TCM. He was admitted at [facility] on 06/10/24 for DVT of Iliac Veins and Inferior Vena Cava. He was treated with Heparin drip while in the hospital. He was discharged home stable on 05/23/24. He had left LE Thrombectomy in the hospital. He followed with Vascular surgery 06/25/24 and currently takes Eliquis 5 mg daily. He still does c/o Left Lower extremity swelling and pain. He was told to wear compression stockings. Today denies CP, SOB and headaches. [facility] Medical History Erectile dysfunction Erythrocytosis Vitamin D deficiency Pure hypercholesterolemia Basal cell carcinoma of skin of right upper eyelid, including canthus Peripheral vascular disease History of polycythemia History of pulmonary embolism Erectile dysfunction History of DVT of lower extremity Insomnia Anxiety Rash Surgical History S/P IVC filter Family History Father Diabetes Mother Diabetes Social History Household Members: None Housing: Apartment Do you presently have visiting nurse or other home services: No Alcohol intake: current Alcohol intake frequency: holidays/special occasions only Patient Tobacco Use Status: Former Tobacco user Tobacco use type: Cigarette e-Cigarette/Vaping Use: Never Used Second Hand Smoke Exposure: No service: No Current occupational status: employed 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 1. Little interest or pleasure in doing things: not at all 2. Feeling down, depressed, or hopeless: not at all 3. Trouble falling or staying asleep, or sleeping too much: not at all 4. Feeling tired or having little energy: not at all 5. Poor appetite or overeating: not at all 6. Feeling bad about yourself - or that you are a failure or have let yourself or your family down: not at all 7. Trouble concentrating on things, such as reading the newspaper or watching television: not at all 8. Moving or speaking so slowly that other people could have noticed. Or the opposite - being so fidgety or restless that you have been moving around a lot more than usual: not at all 9. Thoughts that you would be better off or of hurting yourself in some way: not at all Total score: 0 Depression Screening Interpretation: Negative Depression Screening Done: Yes Source: Developed by Drs. Kaleb Salomon, Alla Douglas, Benito Bello and colleagues, with an educational renetta from [employer]. Thrive Questionnaire Date Thrive assessed: 06/12/24 Are you currently unemployed and looking for a job?: No AUDIT C Alcohol Use Questionnaire (AUDIT-C) 1. How often do you have a drink containing alcohol?: Never Total Score: 0 SCOTTIE-7 AMB Questionnaire SCOTTIE-7 Date SCOTTIE - 7 assessed: 12/24/23 Source: Developed by Drs. Kaleb Salomon, Benito Tian and colleagues, with an educational renetta from [employer]. Review of Systems Const All systems reviewed & are unremarkable except as noted in HPI and below Physical exam (Primary Care) Vital Signs: Last Vital Signs Pulse 72 06/26/24 09:02 BP 148/80 H 06/26/24 09:02 Pulse Ox 97 06/26/24 09:02 Oxygen Delivery Method Room Air 06/26/24 09:02 BMI result Body Mass Index 33.3 Tobacco/Smoking Status: Tobacco use Status Tobacco use date assessed 12/24/23 06/26/24 09:07 Patient Tobacco Use Status Former Tobacco user 06/26/24 09:07 Tobacco use type Cigarette 06/26/24 09:07 e-Cigarette/Vaping Use Never Used 06/26/24 09:07 PHQ-9: PHQ-9 Score PHQ-9: Total score 0 06/26/24 09:07 Depression Screening Interpretation: Negative Thrive Assessment: Date of Thrive Assessment Date Thrive assessed 06/12/24 06/26/24 09:07 Const General: cooperative and no acute distress Nutritional Appearance: overweight Orientation/consciousness: patient oriented x3 Resp Effort & Inspection: normal respiratory effort and able to speak in complete sentences Auscultation: clear to auscultation bilaterally, no crackles, no rales, no rhonchi and no wheezes Cardio Heart sounds: S1 normal heart sound present and S2 normal heart sound present Skin General skin exam: no rashes or lesions noted Neuro Other: Walks with a limp General: patient oriented x3 and moves all extremities Extrem Other: LLE visibly swollen. 3+ Pitting edema left. Psych Speech and movement: Normal speech and movement present Coding Level of Care Code TCM Mod MDM <= 14 Days Diagnoses Acute deep vein thrombosis (DVT) of iliac vein of both lower extremities I82.423 Affected thrombotic vein of extremity: iliac Chronicity: acute DVT location: lower extremity Laterality: bilateral Peripheral edema R60.0 Time Spent (min) 20 Comment SPENT ON REVIEWING HOSPITAL NOTES. Assessment & Plan Assessment & Plan (1) DVT (deep venous thrombosis): Code(s): I82.409 - Acute embolism and thrombosis of unspecified deep veins of unspecified lower extremity Category: Medical Qualifiers: Affected thrombotic vein of extremity: iliac Chronicity: acute DVT location: lower extremity Laterality: bilateral Qualified Code(s): I82.423 - Acute embolism and thrombosis of iliac vein, bilateral Plan: Continue f/u with Vascular Continue on Eliquis as ordered Continue f/u with Hematology F/u with PCP as scheduled. (2) Peripheral edema: Code(s): R60.0 - Localized edema Plan: Advise to use Compression stockings elevate Limbs
== END 2024-06-26 10:43 | disposition home or self-care (01) ==
PROVIDERS: PCP Internal Medicine; Visit Provider Nurse Practitioner Family
DX: I82.423 Acute embolism and thrombosis of iliac vein, bilateral (principal); R60.0 Localized edema; Z23 Encounter for immunization

== ENCOUNTER → 2024-06-26 08:41 | Outpatient (BNVA) | payer BC, SELFPAY | PROVIDERS: PCP Internal Medicine; Visit Provider Nurse Practitioner Family | DX: I82.423 Acute embolism and thrombosis of iliac vein, bilateral (principal); R60.0 Localized edema; Z79.01 Long term (current) use of anticoagulants; Z23 Encounter for immunization | CPT/HCPCS: 90471; 90656; 96127 ==

== ENCOUNTER 2024-07-20 06:13 | Inpatient (IN) | payer BC, SELFPAY ==
[2024-07-16 13:11] VITALS: BMI 32.7
[2024-07-20] VITALS (12 sets, daily range): BP systolic 134–172; BP diastolic 78–101; PULSE 59–74; RESP 16–18; TEMP 36.1–36.7; O2SAT 93–100; BMI 33.4
[2024-07-20 06:39] LABS: Hematocrit 38.3 % (42.0-52.0); Hemoglobin 13.4 g/dl (14.0-18.0); Mean Corpuscular Hemoglobin 38.1 pg (27.0-33.0); Mean Corpuscular Volume 108.8 fL (80.0-98.0); Mean Platelet Volume 8.4 fL (9.4-12.4); Platelet Count 172 X10*3/uL (160-400); Red Blood Count 3.52 X10*6/uL (4.60-5.80); Red Cell Distribution Width 13.1 % (11.0-16.0); White Blood Count 4.6 X10*3/uL (4.8-10.8)
--- NOTE | 2024-07-20 07:00 | PHA.MEDREC ---
Pharmacy Consult ? Medication Reconciliation Pharmacy has reviewed the medication reconciliation completed by nursing. Claims match confirmed medications.
[2024-07-20 07:03] LABS: Anion Gap 15 (12-20); Blood Urea Nitrogen 15 mg/dL (9-16); Calcium 9.5 mg/dL (8.4-10.2); Carbon Dioxide 21 mmol/L (22-29); Chloride 107 mmol/L (96-108); Estimated Glomerular Filt Rate > 60; Glucose Random 125 mg/dL (60-115); Potassium 4.6 mmol/L (3.3-5.1); Prothrombin Time 11.4 SEC (10.9-12.4); Sodium 138 mmol/L (135-145)
[2024-07-20 07:06] LABS: Partial Thromboplastin Time 28.7 SEC (26.0-36.8)
--- NOTE | 2024-07-20 07:20 | HO.ANESPROP2 ---
HPI - Anesthesia Eval Consult details Narrative: 54 yo male patient for IVC Filter Removal and Thrombectomy of IVC and Right iliac veins PMFSH Active Problems Active Problems: All Active Problems DVT (deep venous thrombosis) (Acute) Lower extremity weakness (Acute) Cough (Acute) Anemia (Acute) Polycythemia (Acute) Pulmonary embolism (Acute) Colon cancer screening (Acute) Annual physical exam (Acute) Chronic pruritic rash in adult (Acute) Eczema (Acute) Obesity (BMI 30-39.9) (Acute) Low libido (Acute) Insomnia (Acute) Anxiety (Acute) Erectile dysfunction (Acute) Erectile dysfunction (Acute) Erythrocytosis (Acute) Vitamin D deficiency (Acute) Pure hypercholesterolemia (Acute) History of polycythemia (Acute) History of pulmonary embolism (Acute) History of DVT of lower extremity (Acute) Rash (Acute) Past Medical History Medical History Insomnia Swelling of left lower extremity HTN (hypertension) Erectile dysfunction Erythrocytosis Vitamin D deficiency Pure hypercholesterolemia Basal cell carcinoma of skin of right upper eyelid, including canthus Peripheral vascular disease History of polycythemia History of pulmonary embolism Erectile dysfunction History of DVT of lower extremity Insomnia Anxiety Rash Family History Family History Father Diabetes Mother Diabetes Family history of problems with anesthesia: No Surgical History Surgical History Hx of anterior cruciate ligament surgery History of arthroscopy of both knees Hx of cholecystectomy History of thrombectomy (06/11/24) S/P IVC filter (~2001) History of Problems with Anesthesia: No Social History Social History Household Members: None Housing: Apartment Are you a primary manager medicare marketing to a significant other at home: No Do you presently have visiting nurse or other home services: No Alcohol intake: current Alcohol intake frequency: holidays/special occasions only Patient Tobacco Use Status: Former Tobacco user Tobacco use type: Cigarette Smoked in Last 30 Days: No e-Cigarette/Vaping Use: Never Used Second Hand Smoke Exposure: No Use of substances other than those prescribed or required for medical reasons: No Have you been hit, kicked, punched, or otherwise hurt by someone within the past year? 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 Cognitive needs: No Hearing needs: No Vision needs: Yes (Reading Glasses) Meds Allergies Allergy/AdvReac Type Severity Reaction Status Date / Time No Known Allergies Allergy Verified 06/26/24 09:04 Exam Height,Weight and Vital Signs: Height 5 ft 8 in Weight 99.79 kg Last Vital Signs Temp 97.0 F 07/20/24 06:31 Pulse 65 07/20/24 06:31 Resp 16 07/20/24 06:31 BP 161/93 H 07/20/24 06:31 Pulse Ox 99 07/20/24 06:31 O2 Del Method Room Air 07/20/24 06:31 Pertinent Lab Results Pertinent Lab Results: Laboratory Tests 07/20/24 06:33 WBC 4.6 L RBC 3.52 L Hgb 13.4 L Hct 38.3 L MCV 108.8 H MCH 38.1 H MCHC 35.0 RDW 13.1 Plt Count 172 D MPV 8.4 L Absolute Nucleated RBC 0.000 Nucleated RBC % (auto) 0.0 PT 11.4 INR 1.0 APTT 28.7 Sodium 138 Potassium 4.6 Chloride 107 Carbon Dioxide 21 L Anion Gap 15 BUN 15 Creatinine 1.18 Estim Creat Clear Calc 80.0 Estimated GFR > 60 Random Glucose 125 H Calcium 9.5 Airway Mallampati Class: III TM Dist: >3cm Neck ROM: Full Denture: Upper Loose/Missing/Broken Teeth: Yes (Full denture top. Missing many teeth bottom. Denies broken or loose teeth) Heart: RRR Lungs: CTAB Assessment and Plan Assessment Anesthesia Assessment: Anesthesia Plan Discussed and Chart Reviewed Final Anesthetic Review Family History of Problems with Anesthesia: No History of Problems with Anesthesia: No NPO: Yes ASA Class: III Final Preanesthetic Review: No Changes in Pt Med Stat, Meds/Allgs Chart Reviewed, Consent Obtained/Reviewed and Anes Risks/Benef Reviewed Patient Risk: Intermediate Procedure Risk: Intermediate Assessment/Block/Sedation in SS: Assess/Block/Sedation- Anesthetic Plan Anesthetic Plan: GA Disposition: Standard PACU and Inp. Admit - Standard Bed
--- NOTE | 2024-07-20 07:51 | MHC.SHP ---
Pre-Procedural Eval Section A - 24 Hr Update-Section A only Date of Service: 07/20/24 The patient is an INPATIENT: No Changes since office visit: Yes Patient answered all questions The patient has been examined within 24 hours of the surgical procedure. The History & Physical has been completed within 30 days and I have reviewed it.: Yes Section B - Complete if H&P > 30 days Chief Complaint: Postop Allergies: Allergies Allergy/AdvReac Type Severity Reaction Status Date / Time No Known Allergies Allergy Verified 06/26/24 09:04 Plan I have reviewed the history and physical and performed a pertinent physical examination on my patient. No changes have occurred unless specified. Time Spent With Patient Time: Total time managing care of this patient today ____ minutes.
--- NOTE | 2024-07-20 11:33 | P.OP_ITS ---
Operative Note Operative Note Date of Service: 07/20/24 Narrative: Operative note by [facility] Preoperative diagnosis: DVT with occluded IVC filter Postoperative diagnosis: Same Procedure:1. Ultrasound-guided right internal jugular access 2. Inferior vena cavogram 3. Selective right iliac vein angiogram 4. Removal of IVC filter 5. Mechanical thrombectomy of clot from vena cava and right iliac vein 6. Return of blood using flow Saver system 7. Radiologic supervision and interpretation. Surgeon:Munir Covarrubias M.D. Community Health Nurse: Mary MENCHACA Anesthesia: General anesthesia by Dr. So Specimens: none Drains :none Estimated blood loss: 200 mL Implant: None Comorbid conditions: Anemia, polycythemia, prior history of PE, obesity, anxiety Indications: Patient was noted to have an occluded IVC filter along with significant clot burden in vena cava and iliac veins.. This was noted on prior venogram. Due to the occluded vena cava and filter he now presents for filter removal and mechanical venous thrombectomy.. The patient has signed the info rmed consent after reviewing risks, complications, benefits, and alternatives previously discussed with the patient. The patient was given the opportunity to ask any additional questions or voice any concerns. All questions were answered to the patient's satisfaction. Procedure in detail: Patient was brought to the operating room prior to which a time-out was called for patient identification and site verification. Bilateral groins were prepped and draped in the standard surgical fashion along with right internal jugular. Under ultrasound guidance right internal jugular vein was punctured with micro puncture needle and wire. Subsequently a precision 5 Luxembourger sheath was then placed. Bentson wire was advanced to the level of the vena cava. Vena cavogram was then undertaken. The patient was systemically anticoagulated with 13,000 heparin and therapeutic ACT was achieved of 241. We then advanced a Pro trieve sheath to just the level above the previous vena cava filter. At this time we took a vena cavogram with multiple orthogonal views. We then readvanced the Bentson wire through this. We brought in a filter retrieval snare. These sheath was placed just above the filter and we brought the snare through this. We made several attempts to try to snare the hook of this multiple orthogonal views of this were undertaken and we tried multiple angles to try to snare the tip but we were unable to do so. We then advanced a 8 x 40 balloon over the wire to just below the level of the vena cava filter. We tried to bring this through in order to dislodge this but it had no significant affect. We then subsequently brought in a 16 x 40 balloon. This was brought into appropriate location and again insufflated to try to dislodge the tip this did have an positive affect on this and we were able to move the filter slightly. We then readvanced our snare we had previously tried an EN Snare but that was not effective we readvanced the single loop Bard snare kit once again. We were able to advance this over the hook. And after several pulse we were actually able to retrieve the filter and Carmelo sheath this. This was then brought through the protrude catheter. Once this was accomplished we brought back our Amplatz wire. Over this we advanced the T 20 aspiration sheath and we did multiple aspirations through the right iliac vein all the way up into the vena cava. We were able to remove some chronic thrombus from this area. We did completion venogram which demonstrated no extravasation of contrast. Once the syringe was filled we placed this through the flow Saver blood filtering system and returned the blood back to the patient. Several aspirations were performed until we had no thrombus return. Once this was all done completion imaging was then undertaken. No residual thrombus was noted. Catheter wire and sheath were removed. A pursestring suture was made around the internal jugular with a 2-0 Prolene suture. Once the sheath was removed 10 minutes direct pressure was held. Patient tolerated the procedure well.. and was returned to recovery with stable vitals. Interpretation of films: 1. Ultrasound was used to evaluate access site of the internal jugular l vein. The internal jugular vein was noted to be patent with no thrombus. Ultrasound was used for visualization of needle entry. Image was saved to PACS 2. Vena cavogram demonstrated normal caliber vena cava with occlusion of filter and clot below 3. Imaging at the iliacs demonstrated chronic stenosis and clot of the iliac veins in distal vena cava 4. Completion imaging demonstrated appropriate removal of filter no extravasation of contrast good flow through the proximal part of the vena cava. Conclusion: 1. Successful retrieval of IVC filter and successful mechanical venous thrombectomy of right iliac and vena cava. 2. Anticoagulation status: Continue heparin drip. Can restart formal oral anticoagulation tomorrow This note is constructed using voice recognition software. While every effort has been made to ensure accuracy, tug boat engineer errors may have been included. Thank you for allowing me to participate in the care of your patient. Yours sincerely, Munir Covarrubias MD, FACS, R.P.V.I.
[2024-07-20 13:58] LABS: Hematocrit 37.2 % (42.0-52.0); Mean Corpuscular HGB Conc 34.9 g/dl (31.0-36.0); Mean Corpuscular Hemoglobin 38.1 pg (27.0-33.0); Mean Corpuscular Volume 109.1 fL (80.0-98.0); Mean Platelet Volume 9.4 fL (9.4-12.4); Platelet Count 163 X10*3/uL (160-400); Red Blood Count 3.41 X10*6/uL (4.60-5.80); Red Cell Distribution Width 12.9 % (11.0-16.0); White Blood Count 5.6 X10*3/uL (4.8-10.8)
[2024-07-20 14:03] LABS: INTERNATIONAL NORM RATIO 1.1 (0.9-1.1); Prothrombin Time 12.4 SEC (10.9-12.4)
[2024-07-20 14:05] LABS: PTT Heparin Drip 70.7 SEC (53-77.9)
[2024-07-20] MEDS: Heparin Sodium,Porcine/1/2NS 25,000 UNIT/250 ML IV.SOLN 13.97 UNIT IVCONT (14:25)
[2024-07-20] MEDS: ceFAZolin Sodium/Dextrose,Iso 2 GM/50 ML PIGGYBACK IV (14:35)
[2024-07-20 20:42] LABS: PTT Heparin Drip 74.4 SEC (53-77.9)
[2024-07-20] MEDS: Acetaminophen 325 MG TABLET 650 MG PO (22:25)
[2024-07-20] MEDS: oxyCODONE HCl Immed Release 5 MG TABLET PO (22:25)
[2024-07-20] MEDS: Melatonin 3 MG TABLET 6 MG PO (22:25)
[2024-07-20] MEDS: 0.9 % Sodium Chloride Flush 3 ML SYRINGE IVFLUSH (22:26)
[2024-07-21] VITALS (7 sets, daily range): BP systolic 123–142; BP diastolic 66–81; PULSE 56–66; RESP 16–20; TEMP 36.1–36.7; O2SAT 95–97
[2024-07-21 02:45] LABS: PTT Heparin Drip 80.4 SEC (53-77.9)
[2024-07-21] MEDS: oxyCODONE HCl Immed Release 5 MG TABLET PO (03:00)
[2024-07-21 06:32] LABS: MANUAL DIFF FLAG NO
[2024-07-21 06:43] LABS: Basophils Percent Auto 0.2 % (0-2); Eosinophils Percent Auto 0.3 % (0-4); Hematocrit 32.6 % (42.0-52.0); Hemoglobin 11.2 g/dl (14.0-18.0); Imm Gran Abs Auto 0.02 X10*3/uL (0.00-0.03); Imm Gran Pct Auto 0.3 % (0.0-0.4); Lymphocytes Percent Auto 16.2 % (20-40); Mean Corpuscular HGB Conc 34.4 g/dl (31.0-36.0); Mean Corpuscular Hemoglobin 37.8 pg (27.0-33.0); Mean Platelet Volume 9.1 fL (9.4-12.4); Monocytes Absolute Auto 0.3 X10*3/uL (0.1-1.2); Monocytes Percent Auto 4.7 % (2-11); Neutrophils Absolute Auto 4.7 x10*3/uL (2.0-8.3); Neutrophils Percent Auto 78.3 % (45-73); Platelet Count 150 X10*3/uL (160-400); Red Blood Count 2.96 X10*6/uL (4.60-5.80); Red Cell Distribution Width 12.8 % (11.0-16.0)
[2024-07-21 06:44] LABS: Mean Corpuscular Volume 110.1 fL (80.0-98.0)
[2024-07-21 06:52] LABS: INTERNATIONAL NORM RATIO 1.1 (0.9-1.1); Prothrombin Time 12.3 SEC (10.9-12.4)
[2024-07-21 06:54] LABS: Anion Gap 11 (12-20); Blood Urea Nitrogen 14 mg/dL (9-16); Calcium 8.9 mg/dL (8.4-10.2); Carbon Dioxide 24 mmol/L (22-29); Chloride 106 mmol/L (96-108); Creatinine Clr Calc Pharmacy 85.8; Estimated Glomerular Filt Rate > 60; Glucose Random 140 mg/dL (60-115); Potassium 4.5 mmol/L (3.3-5.1); Sodium 136 mmol/L (135-145)
[2024-07-21] MEDS: amLODIPine Besylate 5 MG TABLET PO (08:21)
[2024-07-21] MEDS: Heparin Sodium,Porcine/1/2NS 25,000 UNIT/250 ML IV.SOLN 11.98 UNIT IVCONT (08:26)
--- NOTE | 2024-07-21 08:31 | P.PNVS_ITS ---
Subjective Subjective Date of Service: 07/21/24 Interval history: Ronnie states he had a difficult night last night. He states that the neck, where the incision is, feels tight and he states it feels like there is something pricking him. He states he did take the pain meds, which helped only a little. He has been eating well; he states drinking is a little difficult due to discomfort when swallowing. He states he has not seen any major changes in his legs/feet yet. He has been OOB twice yesterday. He continues on the Heparin drip. Physical Exam Vital Signs: Vital Signs: Last Vital Signs Temp 97.1 F 07/21/24 07:32 Pulse 59 07/21/24 07:32 Resp 18 07/21/24 07:32 BP 133/78 07/21/24 07:32 Pulse Ox 95 07/21/24 07:32 O2 Del Method Room Air 07/21/24 07:32 O2 Flow Rate 4 07/20/24 11:50 BMI result Body Mass Index 33.4 Const: General: comfortable and no acute distress Alex entation/consciousness: patient oriented x3 HEENT: Ears: hearing grossly normal bilaterally Neck: Other: Incision c/d/i. Dressing taken down, minimal bleeding noted on dressing. Bruising noted on the lateral aspect of the incision. Painful to palpation just distal to the incision site. Full ROM noted. Resp: Effort & Inspection: normal respiratory effort and able to speak in complete sentences Auscultation: clear to auscultation bilaterally Cardio: Rate: regular rate Rhythm: regular rhythm Heart sounds: S1 normal heart sound present and S2 normal heart sound present Bruits: no abdominal aortic bruits, no carotid bruits, no femoral bruits and no renal bruits GI: Palpation (GI): No Abdominal aortic bruit present Neuro: General: patient oriented x3 Cranial nerves: Yes CN's II-XII intact bilaterally Extrem: Other: Bilateral lower extremities: swelling decreased slightly. Faint but palpable DP pulses. Progress Note: A&P Assessment and plan (1) DVT (deep venous thrombosis): Status: Acute Assessment and Plan: Ronnie is 1 day postop from removal of IVC filter and thrombectomy. He states he had a rough night due to some pain in the incision area. States he is eating and drinking okay. He is urinating okay. We did take the dressing down as the Tegaderm was pretty tight across the neck. We replaced it with Allevyn dressing. He states that feels better already. We will continue him on a heparin drip; we will keep him on it until this evening, when he will transistion back to Eliquis 5mg bid. We will continue to encourage him to get out of bed. We will likely keep him 1 more night for observation.The plan is for discharge tomorrow morning if everything continues to go well. Time Spent With Patient Time: Total time managing care of this patient today ___30_ minutes. Procedures Date of Service Date of Service: 07/21/24 Quality Stroke Does the patient have a stroke diagnosis?: No VTE Prior VTE?: No VTE Risk Level:: Medical - moderate - high VTE Device Contraindication: Treatment Not Indicated VTE Drug Contraindication: N/A - Med Ordered
[2024-07-21 08:36] LABS: PTT Heparin Drip 67.6 SEC (53-77.9)
--- NOTE | 2024-07-21 11:09 | HO.POSTANES ---
Post Anesthesia Evaluation Post Anesthesia Evaluation Date of Service: 07/20/24 Vital Signs: Vital Signs Temp Pulse Resp BP Pulse Ox O2 Del Method 07/21/24 09:33 95 Room Air 07/21/24 07:32 97.1 F 59 18 133/78 95 Room Air 07/21/24 03:47 97.0 F 56 20 123/66 97 Room Air Anesthesia: General Endotracheal-GETA Mental Status: Awake Pain Control: Satisfactory Nausea/Vomiting: None Hydration: Adequate Anesthesia-Related Issues: No Anes. Related Issues
--- NOTE | 2024-07-21 12:43 | MHC.CM.PN ---
Patient lives in an aparment alone. Functionally independent. Denies use of DME or services. PCP Wyatt Buck No HCP. CM provided education and offered assistance. Declined at this time, would like more time to consider who he would appoint as HCA. Will call CM if he decides. DP: Goal is home self care. Will need transport via [employer]. CM will continue to follow.
[2024-07-21 14:18] LABS: PTT Heparin Drip 60.2 SEC (53-77.9)
[2024-07-21] MEDS: Apixaban 5 MG TABLET PO (21:08)
[2024-07-21] MEDS: 0.9 % Sodium Chloride Flush 3 ML SYRINGE IVFLUSH (21:27)
[2024-07-21] MEDS: Melatonin 3 MG TABLET 6 MG PO (21:52)
[2024-07-21] MEDS: Acetaminophen 325 MG TABLET 650 MG PO (21:52)
--- NOTE | 2024-07-21 22:43 | PC.NURSE ---
Pt AOx4, speech appropriate for pt, 5/10 tolerable pain reported at surgical site to R side of neck, pink foam dressing CDI, pedal pulses found to BLE, non-pitting to left lower leg, old bruising noted, no new ecchymosis found, denies hematuria at this time. pt wearing sequential's appropriately. Melatonin and tylenol given per NOV. Lung sounds clear with even respirations, no apparent distress at this time. VSS
[2024-07-22 03:29] VITALS: BP 145/84; PULSE 59; RESP 16; TEMP 36.6; O2SAT 97
[2024-07-22] MEDS: 0.9 % Sodium Chloride Flush 3 ML SYRINGE IVFLUSH (07:01)
[2024-07-22] MEDS: oxyCODONE HCl Immed Release 5 MG TABLET PO ×2 (07:01→10:40)
[2024-07-22] MEDS: Apixaban 5 MG TABLET PO (07:01)
[2024-07-22] MEDS: amLODIPine Besylate 5 MG TABLET PO (07:01)
[2024-07-22 07:42] VITALS: BP 139/78; PULSE 66; RESP 14; TEMP 36.2; O2SAT 99
--- NOTE | 2024-07-22 08:33 | PM.DS ---
DS: Providers Provider Date of Service: 07/22/24 Date of admission: 07/20/24 06:13 Primary care physician: Wyatt Buck MD DS: Diagnosis Discharge Diagnosis (1) DVT (deep venous thrombosis): Status: Acute DS: Summary Hospital Course Hospital Course: Ronnie has done well. He is status post IVC filter removal with mechanical thrombectomy. His inpatient course has been unremarkable. He has been getting out of bed as well as eating and drinking okay. He initially had increased pain in the right neck area postop; however he states it is getting a little bit better. We changed the dressing the morning after the surgery to Allevyn and he states it is more comfortable. He states he feels like the area is bruising. He denies any dizziness, lightheadedness, or headaches. He was transitioned from IV heparin to Eliquis last night. We will have him continue on a daily aspirin and Eliquis b.i.d.. He will follow up in our office in 2 weeks. We discussed that if there is any changes or any bleeding from the neck to reach out to our office as soon as possible. Time Attestation Total time managing care of this patient today: 45 mintues. Discharge Coordination Time (in mins): 45 Quality: Safe Use of Opioids Does Pt have an Active Cancer Diagnosis on the Problem List?: No Quality: Stroke Does the patient have a stroke diagnosis?: No Physical Exam Vital Signs: Vital Signs: Last Vital Signs Temp 97.2 F 07/22/24 07:42 Pulse 66 07/22/24 07:42 Resp 14 07/22/24 07:42 BP 139/78 07/22/24 07:42 Pulse Ox 99 07/22/24 07:42 O2 Del Method Room Air 07/22/24 07:54 O2 Flow Rate 4 07/20/24 11:50 BMI result Body Mass Index 33.4 DS: Data Data Completed and Pending Completed studies during hospitalization [Text1]: Pending at discharge 07/20/24 11:36 Surgical [PTH] Routine Procedures Extirpation of Matter from Inferior Vena Cava, Percutaneous Approach (06/10/24) Extirpation of Matter from Lower Vein, Percutaneous Approach (06/10/24) Labs on day of discharge: Laboratory Results - last 24 hr 07/21/24 07/21/24 08:10 13:54 aPTT Heparin Protocol 67.6 60.2 Discharge Plan Discharge Anticipated Discharge Date/Time: 07/22/24 10:00 Patient Disposition: Home, Self-Care Discharge Diagnosis: s/p IVC filter removal and mechanical thrombectomy Referrals: Wyatt Buck MD [Primary Care Provider] - 1 Week Discharge Medications: Continued Eliquis 5 mg tablet 5 mg PO BID 90 Days Qty: 190 0RF Rx Instructions: Take 2 tabs twice daily until June 18 and then take 1 tab twice daily after that amlodipine 5 mg Tablet 5 mg PO DAILY 90 Days Qty: 90 0RF Protocol: Hold for SBP< HOLD for SBP < : 90 Discharge Orders: Discharge Order (Routine); Ordered 07/22/24 Ordered By: Mary Sorto Diet: Advance to usual diet Activity on Discharge: As tolerated Stand Alone Forms: Patient Portal Discharge page Print Language: Bulgarian Activity Restrictions/Additional Instructions: Do not lift over 5 pounds. Continue with Eliquis bid as directed. Follow up in office in 2w. If there is any excess bleeding from the neck, please contact our office. Care Plan Goals: Surveillance of DVT Health Concerns: DVT Plan of Treatment: Continue anticoagulation Assessment: S/p IVC filter removal and mechanical thrombectomy Discharge Date/Time: 07/22/24 10:58
--- NOTE | 2024-07-22 09:01 | MHC.CM.PN ---
Patient medically cleared for dc home self care via private transport @1230pm. RN aware.
--- NOTE | 2024-07-22 13:42 | PM.DS ---
DS: Providers Provider Date of Service: 07/22/24 Date of admission: 07/20/24 06:13 Primary care physician: Wyatt Buck MD DS: Diagnosis Discharge Diagnosis (1) DVT (deep venous thrombosis): Status: Acute DS: Summary Hospital Course Hospital Course: Ronnie has done well. He is status post IVC filter removal with mechanical thrombectomy. His inpatient course has been unremarkable. He has been getting out of bed as well as eating and drinking okay. He initially had increased pain in the right neck area postop; however he states it is getting a little bit better. We changed the dressing the morning after the surgery to Allevyn and he states it is more comfortable. He states he feels like the area is bruising. He denies any dizziness, lightheadedness, or headaches. He was transitioned from IV heparin to Eliquis last night. We will have him continue on a daily aspirin and Eliquis b.i.d.. He will follow up in our office in 2 weeks. We discussed that if there is any changes or any bleeding from the neck to reach out to our office as soon as possible. Status at Discharge Functional status at discharge: independent ambulation Overall status at discharge: patient is progressing back to baseline Time Attestation Discharge Coordination Time (in mins): 45 min Quality: Safe Use of Opioids Does Pt have an Active Cancer Diagnosis on the Problem List?: No Quality: Stroke Does the patient have a stroke diagnosis?: No Physical Exam Vital Signs: Vital Signs: Last Vital Signs Temp 97.2 F 07/22/24 07:42 Pulse 66 07/22/24 07:42 Resp 14 07/22/24 07:42 BP 139/78 07/22/24 07:42 Pulse Ox 99 07/22/24 07:42 O2 Del Method Room Air 07/22/24 07:54 O2 Flow Rate 4 07/20/24 11:50 BMI result Body Mass Index 33.4 Const: General: comfortable and no acute distress Orientation/consciousness: patient oriented x3 HEENT: Ears: hearing grossly normal bilaterally Neck: Other: Right neck: Allevyn bandage still in place this morning. No discharge noted on the bandage. Resp: Effort & Inspection: normal respiratory effort and able to speak in complete sentences Auscultation: clear to auscultation bilaterally Cardio: Rate: regular rate Rhythm: regular rhythm Heart sounds: S1 normal heart sound present and S2 normal heart sound present Bruits: no abdominal aortic bruits, no carotid bruits, no femoral bruits and no renal bruits GI: Palpation (GI): No Abdominal aortic bruit present Neuro: General: patient oriented x3 Cranial nerves: Yes CN's II-XII intact bilaterally DS: Data Data Completed and Pending Completed studies during hospitalization [Text1]: Pending at discharge 07/20/24 11:36 Surgical [PTH] Routine Procedures Extirpation of Matter from Inferior Vena Cava, Percutaneous Approach (06/10/24) Extirpation of Matter from Lower Vein, Percutaneous Approach (06/10/24) Labs on day of discharge: Laboratory Results - last 24 hr 07/21/24 13:54 aPTT Heparin Protocol 60.2 Discharge Plan Discharge Anticipated Discharge Date/Time: 07/22/24 10:00 Patient Disposition: Home, Self-Care Discharge Diagnosis: s/p IVC filter removal and mechanical thrombectomy Referrals: Wyatt Buck MD [Primary Care Provider] - 1 Week Discharge Medications: Continued Eliquis 5 mg tablet 5 mg PO BID 90 Days Qty: 190 0RF Rx Instructions: Take 2 tabs twice daily until June 18 and then take 1 tab twice daily after that amlodipine 5 mg Tablet 5 mg PO DAILY 90 Days Qty: 90 0RF Protocol: Hold for SBP< HOLD for SBP < : 90 Discharge Orders: Discharge Order (Routine); Ordered 07/22/24 Ordered By: Mary Sorto Diet: Advance to usual diet Activity on Discharge: As tolerated Stand Alone Forms: Patient Portal Discharge page Print Language: Portuguese Activity Restrictions/Additional Instructions: Do not lift over 5 pounds. Continue with Eliquis bid as directed. Follow up in office in 2w. If there is any excess bleeding from the neck, please contact our office. Care Plan Goals: Surveillance of DVT Health Concerns: DVT Plan of Treatment: Continue anticoagulation Assessment: S/p IVC filter removal and mechanical thrombectomy Discharge Date/Time: 07/22/24 10:58
== END 2024-07-22 10:58 | disposition home or self-care (01) | DRG 169 ==
LOC: HO.SSSA 06:24 → HO.S3 12:07
PROVIDERS: Physician Assistant Surgical; Admitting Provider Surgery Vascular Surgery; PCP Internal Medicine; Visit Provider Surgery Vascular Surgery
PROC: 06CC3ZZ Extirpation of Matter from Right Common Iliac Vein, Percutaneous Approach (ICD-10-PCS; principal; 2024-07-20 07:30)
PROC: 06CC3ZZ Extirpation of Matter from Right Common Iliac Vein, Percutaneous Approach (ICD-10-PCS; 2024-07-20 07:30)
DX: T82.868A Thrombosis due to vascular prosthetic devices, implants and grafts, initial encounter (principal); I82.220 Acute embolism and thrombosis of inferior vena cava; I82.423 Acute embolism and thrombosis of iliac vein, bilateral; Y71.1 Therapeutic (nonsurgical) and rehabilitative cardiovascular devices associated with adverse incidents; F41.9 Anxiety disorder, unspecified; E66.9 Obesity, unspecified; Z68.33 Body mass index [BMI] 33.0-33.9, adult; D75.1 Secondary polycythemia; Z79.01 Long term (current) use of anticoagulants; Z79.899 Other long term (current) drug therapy
CPT/HCPCS: 36415; 80048; 85025; 85027; 85610; 85730; 86850; 86870; 86885; 86900; 86901; 86902; 86905; 86920; 86922; C1725; C1757; C1769; C1773; C1887; J0690; J1100; J1171; J1644; J2003; J2250; J2405; J2704; J2795; J3010; Q9967

== ENCOUNTER → 2024-07-20 06:13 | Outpatient (BNV) | payer BC, SELFPAY | PROVIDERS: Admitting Provider Surgery Vascular Surgery; PCP Internal Medicine; Visit Provider Surgery Vascular Surgery | DX: I82.423 Acute embolism and thrombosis of iliac vein, bilateral (principal); Z98.890 Other specified postprocedural states | CPT/HCPCS: 37187; 37193; 99232; 99239 ==

== ENCOUNTER 2024-07-24 14:15 | Outpatient (AMB) | payer BC, SELFPAY ==
[2024-07-24 14:20] VITALS: BP 130/100; PULSE 77; O2SAT 96; BMI 32.7
--- NOTE | 2024-07-24 14:20 | A.OFFPC_ITS ---
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 Agricultural Commodities Required: No Accompanied by: Self / Same As Patient Allergies No Known Allergies Allergy (Verified 07/24/24 15:12) Medication List - Last Reconciled 07/24/24 by Wyatt Buck MD amlodipine 5 mg See Protocol PO DAILY 90 days apixaban (Eliquis) 5 mg PO BID 90 days Tobacco use date assessed: 07/24/24 Dental Screening Dental Screen Date: 07/24/24 Did you have a dental visit in the last 12 months?: Yes Did you have a dental problem in the last 6 months where you did not have access to dental care?: No Was dental information given to patient?: Patient has dentist HPI Hypertension HPI Details Patient comes in today for his follow up visit Patient underwent thrombectomy of the IVC at [facility] a few weeks ago on 06/11/2024 He more recently had his IVC filter removed as well as mechanical thrombectomy from the vena cava to the right iliac vein through a right internal jugular approach States that the right side of his neck still feels sore but overall, he feels okay He is now on Eliquis 5 mg BID (used to be on Coumadin for years) He reports that he still feels fatigued and admitted that he was feeling a little anxious and scared when he was going through his surgeries over the past month - is feeling better now He denies any headaches or dizziness Denies any chest pains, no increased SOB No nausea/vomiting, no abdominal pain No change in bowel habits noted He had his follow up labs done a few days ago - to discuss his results [facility] Medical History (Updated 07/24/24 @ 17:17 by Wyatt Buck MD) Essential hypertension Insomnia Swelling of left lower extremity HTN (hypertension) Erectile dysfunction Erythrocytosis Vitamin D deficiency Pure hypercholesterolemia Basal cell carcinoma of skin of right upper eyelid, including canthus Peripheral vascular disease History of polycythemia History of pulmonary embolism Erectile dysfunction History of DVT of lower extremity Insomnia Anxiety Rash Surgical History (Updated 07/24/24 @ 16:16 by Wyatt Buck MD) Hx of anterior cruciate ligament surgery History of arthroscopy of both knees Hx of cholecystectomy History of thrombectomy (06/11/24) S/P IVC filter (~2001) Family History Father Diabetes Mother Diabetes Social History Household Members: None Housing: Apartment Are you a primary health care assistant to a significant other at home: No Do you presently have visiting nurse or other home services: No Alcohol intake: current Alcohol intake frequency: holidays/special occasions only Patient Tobacco Use Status: Former Tobacco user Tobacco use type: Cigarette e-Cigarette/Vaping Use: Never Used Second Hand Smoke Exposure: No service: No Current occupational status: employed 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 1. Little interest or pleasure in doing things: not at all 2. Feeling down, depressed, or hopeless: not at all 3. Trouble falling or staying asleep, or sleeping too much: not at all 4. Feeling tired or having little energy: not at all 5. Poor appetite or overeating: not at all 6. Feeling bad about yourself - or that you are a failure or have let yourself or your family down: not at all 7. Trouble concentrating on things, such as reading the newspaper or watching television: not at all 8. Moving or speaking so slowly that other people could have noticed. Or the opposite - being so fidgety or restless that you have been moving around a lot more than usual: not at all 9. Thoughts that you would be better off or of hurting yourself in some way: not at all Total score: 0 Depression Screening Interpretation: Negative Depression Screening Done: Yes [id number] - PHQ-9 Billing: Yes Source: Developed by Drs. Kaleb Salomon, Alla Douglas, Benito Bello and colleagues, with an educational renetta from [employer]. Thrive Questionnaire Date Thrive assessed: 07/24/24 I am a: Patient What is your living situation today?: I have a steady place to live Within the past 12 months, did the food you bought not last and you didn't have the money to get more?: Never true Within the past 12 months, did you worry whether your food would run out before you got money to buy more?: Never true Do you have trouble paying for medicines?: No Do you have trouble getting transportation to medical appointments?: No Do you have trouble paying your heating and electricity bill?: No Do you have trouble taking care of your child, family member or friend?: No Do you have trouble with day-to-day activities such as bathing, preparing meals, shopping, managing finances, etc.?: No Are you currently unemployed and looking for a job?: No Are you interested in more education?: No Please select the resources that you would like help with: None Currently or been in a relationship where the following occur: No concerns reported THRIVE Score: 0 AUDIT C Alcohol Use Questionnaire (AUDIT-C) 1. How often do you have a drink containing alcohol?: Never Total Score: 0 Score Reviewed/Action Taken: Yes SCOTTIE-7 AMB Questionnaire SCOTTIE-7 Date SCOTTIE - 7 assessed: 07/24/24 Feeling nervous, anxious, or on edge: 0 = Not at all Not being able to stop or control worryin = Not at all Worrying too much about different things: 0 = Not at all Trouble relaxin = Not at all Being so restless that it is hard to sit still: 0 = Not at all Becoming easily annoyed or irritable: 0 = Not at all Feeling afraid as if something awful might happen: 0 = Not at all Total SCOTTIE-7 score (0-4 normal; 5-9 mild; 10-14 moderate; 15-21 severe): 0 Source: Developed by Drs. Kaleb Salomon, Alla Douglas, Benito Bello and colleagues, with an educational renetta from [employer]. Review of Systems Const Denies chills, Reports fatigue, Denies fever(s) and Denies headache(s) ENT Denies dysphagia, Denies dizziness, Denies otalgia, Denies headache(s), Reports neck pain (mild, on the right side - s/p IVC removal via internal jugular approach), Denies odynophagia and Denies sore throat Card Denies chest pain, Denies irregular heart rhythm, Denies palpitations and Denies dyspnea Resp Denies chest congestion, Denies cough and Denies dyspnea GI Denies abdominal pain, Denies constipation, Denies dysphagia, Denies heartburn, Denies diarrhea, Denies nausea, Denies odynophagia and Denies vomiting Denies difficulty urinating, Denies dysuria and Denies urinary frequency Musc Denies back pain, Denies arthralgias and Reports neck pain (mild, on the right side - s/p IVC removal via internal jugular approach) Skin/Breast Denies rash Neuro Denies dizziness, Denies headache(s) and Denies paresthesias Endo Reports fatigue and Denies palpitations Physical exam (Primary Care) Vital Signs: Last Vital Signs Pulse 77 07/24/24 14:20 BP 130/88 07/24/24 15:06 Pulse Ox 96 07/24/24 14:20 Oxygen Delivery Method Room Air 07/24/24 14:20 BMI result Body Mass Index 32.7 Tobacco/Smoking Status: Tobacco use Status Tobacco use date assessed 07/24/24 07/24/24 14:22 Patient Tobacco Use Status Former Tobacco user 07/24/24 14:22 Tobacco use type Cigarette 07/24/24 14:22 e-Cigarette/Vaping Use Never Used 07/24/24 14:22 PHQ-9: PHQ-9 Score PHQ-9: Total score 0 07/24/24 15:08 Depression Screening Interpretation: Negative Thrive Assessment: Date of Thrive Assessment Date Thrive assessed 07/24/24 07/24/24 14:22 Currently or been in a relationship where the following occur: No concerns reported Const General: no acute distress and alert HENMT Ears: TM's normal bilaterally and EAC's normal Throat: Yes posterior oropharynx normal and Yes tonsils normal (no TP congestion) Neck Neck: Yes no lymphadenopathy and Yes supple Thyroid: Thyroid normal Resp Auscultation: clear to auscultation bilaterally, no rales and no wheezes Cardio Rate: regular rate Rhythm: regular rhythm Heart sounds: no murmurs GI Palpation (GI): Soft to palpation and nontender Auscultation: normal bowel sounds General: Yes no CVA tenderness Back/Spine/Pelvis Back: no CVA tenderness Thoracic/Lumbar Spine: No lumbar spinal tenderness Skin Rashes: no rashes Extrem General: Yes no clubbing, cyanosis or edema Results Reviewed Results Reviewed: Laboratory Tests 06/10/24 06/11/24 06/18/24 10:15 04:36 10:30 WBC Hgb Plt Count ESR 2 Sodium Potassium Creatinine Estimated GFR Random Glucose AST 26 ALT 26 C-Reactive Protein 0.50 TSH 0.61 07/21/24 06:16 WBC 6.0 Hgb 11.2 L Plt Count 150 L ESR Sodium 136 Potassium 4.5 Creatinine 1.10 Estimated GFR > 60 Random Glucose 140 H AST ALT C-Reactive Protein TSH Coding Level of Care Code Est Pt Level 4 (51276) Diagnoses Pure hypercholesterolemia E78.00 Essential hypertension I10 Vitamin D deficiency E55.9 Erythrocytosis D75.1 History of pulmonary embolism Z86.711 History of DVT of lower extremity Z86.718 Insomnia, unspecified type G47.00 Insomnia type: unspecified Anxiety F41.9 Obesity (BMI 30-39.9) E66.9 Additional Codes PHQ-9 - 20697 - PHQ-9 Billing: Yes ([id number]) Assessment & Plan Assessment & Plan (1) Pure hypercholesterolemia: Code(s): E78.00 - Pure hypercholesterolemia, unspecified Category: Medical Plan: Reinforced low cholesterol diet Patient is advised that his recent labs did not include a fasting lipid profile Will have him recheck his labs and fasting lipids in 6 months for follow up - have reminded patient that we have not had a chance to check his cholesterol levels since 2019 so he should try to get his labs done as scheduled in 6 months (2) Essential hypertension: Code(s): I10 - Essential (primary) hypertension Category: Medical Plan: Reinforced low sodium diet - goal is systolic BP of 120 mm or less Continue Amlodipine 5 mg QD Patient is advised to continue monitoring his blood pressure regularly (3) Vitamin D deficiency: Code(s): E55.9 - Vitamin D deficiency, unspecified Category: Medical Plan: Will also recheck his Vitamin D level in 6 months (4) Erythrocytosis: Code(s): D75.1 - Secondary polycythemia Category: Medical Plan: (+) Hx of pulmonary embolism and DVT of both upper and lower extremities and he had a Lawrence filter placed back in 2001 He used to be on anticoagulation but was cleared to stop taking his Coumadin in 2019 Patient was then lost to follow up with hematology/oncology for the next 2 to 3 years (5) History of pulmonary embolism: Code(s): Z86.711 - Personal history of pulmonary embolism Category: Medical Plan: (+) Hx of pulmonary embolism and DVT of both upper and lower extremities and he had a Lawrence filter placed back in 2001 He used to be on anticoagulation but was cleared to stop taking his Coumadin in 2019 Patient was then lost to follow up with hematology/oncology for the next 2 to 3 years (6) History of DVT of lower extremity: Code(s): Z86.718 - Personal history of other venous thrombosis and embolism Category: Medical Plan: (+) Hx of pulmonary embolism and DVT of both upper and lower extremities and he had a Tee filter placed back in 2001 He used to be on anticoagulation but was cleared to stop taking his Coumadin in 2019 Patient was then lost to follow up with hematology/oncology for the next 2 to 3 years He recently went to the ER this past May 2024 for increasing bilateral leg pain and weakness and increasing low back pain Imaging studies done at the ER revealed (+) 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 Vascular surgery was consulted, who recommended starting IV heparin and patient was then admitted for further management He ultimately underwent thrombectomy and subsequent removal of his IVC filter He is now on Eliquis 5 mg BID Follow up with vascular surgery and hematology as scheduled (7) Insomnia: Code(s): G47.00 - Insomnia, unspecified Category: Medical Qualifiers: Insomnia type: unspecified Qualified Code(s): G47.00 - Insomnia, unspecified Plan: Sleep hygiene reinforced (8) Anxiety: Code(s): F41.9 - Anxiety disorder, unspecified Category: Medical Plan: He used to take Buspirone 10 mg BID but has not needed to take any Rx for the past few years now (9) Obesity (BMI 30-39.9): Code(s): E66.9 - Obesity, unspecified Category: Medical Plan: Reinforced diet/exercise as tolerated/lose weight Plan To return in 6 months for his next annual physical examination Orders: Orders Comprehensive [place]. Panel Fast 6 Months E78.00 - Pure hypercholesterolemia, unspecified Lipid Panel 6 Months E78.00 - Pure hypercholesterolemia, unspecified Hemoglobin A1c 6 Months R73.9 - Hyperglycemia, unspecified, Z00.00 - Encounter for general adult medical examination without abnormal findings Complete Blood Count Auto Diff 6 Months D64.9 - Anemia, unspecified TSH reflex Free T4 6 Months E78.00 - Pure hypercholesterolemia, unspecified UA CC w/rflx Micro + Cult 6 Months R30.0 - Dysuria Vitamin D 25-OH Total 6 Months E55.9 - Vitamin D deficiency, unspecified, Z00.00 - Encounter for general adult medical examination without abnormal findings Vitamin B12 and Folate 6 Months E53.8 - Deficiency of other specified B group vitamins, Z00.00 - Encounter for general adult medical examination without abnormal findings Prostate Specific Antigen Scr 6 Months Z00.00 - Encounter for general adult medical examination without abnormal findings
[2024-07-24 14:32] VITALS: BP 132/100
[2024-07-24 15:06] VITALS: BP 130/88
== END 2024-07-24 15:10 | disposition home or self-care (01) ==
PROVIDERS: PCP Internal Medicine; Visit Provider Internal Medicine
DX: E78.00 Pure hypercholesterolemia, unspecified (principal); I10 Essential (primary) hypertension; E55.9 Vitamin D deficiency, unspecified; D75.1 Secondary polycythemia; Z86.711 Personal history of pulmonary embolism; Z86.718 Personal history of other venous thrombosis and embolism; G47.00 Insomnia, unspecified; F41.9 Anxiety disorder, unspecified; E66.9 Obesity, unspecified

== ENCOUNTER → 2024-07-24 14:15 | Outpatient (BNVA) | payer BC, SELFPAY | PROVIDERS: PCP Internal Medicine; Visit Provider Internal Medicine | DX: I10 Essential (primary) hypertension (principal); E78.00 Pure hypercholesterolemia, unspecified; E55.9 Vitamin D deficiency, unspecified; D75.1 Secondary polycythemia; G47.00 Insomnia, unspecified; F41.9 Anxiety disorder, unspecified; E66.9 Obesity, unspecified; Z68.32 Body mass index [BMI] 32.0-32.9, adult; Z86.711 Personal history of pulmonary embolism; Z86.718 Personal history of other venous thrombosis and embolism; Z79.01 Long term (current) use of anticoagulants; Z79.899 Other long term (current) drug therapy | CPT/HCPCS: 96127 ==

== ENCOUNTER 2024-08-04 14:42 | Outpatient (AMB) | payer BC, SELFPAY ==
--- NOTE | 2024-08-04 15:02 | MHC.OFFVIS ---
Intake Visit Reasons: Post Op Filter Removal Intake Note: Patient presents for follow up filter removal . States he had mild pain post procedure. Had a quarter sized drainage on bandage about 2-3 days ago (covers stitch on neck with bandage for work) Accompanied by: Self / Same As Patient Allergies No Known Allergies Allergy (Verified 08/04/24 15:04) HPI HPI Post Op Filter Removal: Details: Very pleasant 54-year-old gentleman presents for follow-up status post IVC filter removal. In general reports he is feeling better. His biggest complaint is significant swelling in the left lower extremity. Now presents for routine follow-up. [facility] Medical History Essential hypertension Insomnia Swelling of left lower extremity HTN (hypertension) Erectile dysfunction Erythrocytosis Vitamin D deficiency Pure hypercholesterolemia Basal cell carcinoma of skin of right upper eyelid, including canthus Peripheral vascular disease History of polycythemia History of pulmonary embolism Erectile dysfunction History of DVT of lower extremity Insomnia Anxiety Rash Surgical History Hx of anterior cruciate ligament surgery History of arthroscopy of both knees Hx of cholecystectomy History of thrombectomy (06/11/24) S/P IVC filter (~2001) Family History Father Diabetes Mother Diabetes Social History Household Members: None Housing: Apartment Are you a primary career placement services counselor to a significant other at home: No Do you presently have visiting nurse or other home services: No Alcohol intake: current Alcohol intake frequency: holidays/special occasions only Patient Tobacco Use Status: Former Tobacco user Tobacco use type: Cigarette e-Cigarette/Vaping Use: Never Used Second Hand Smoke Exposure: No service: No Current occupational status: employed 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 Cognitive needs: No Hearing needs: No Vision needs: Yes (Reading Glasses) Review of Systems Const All systems reviewed & are unremarkable except as noted in HPI and below Reports no additional complaints ENT Reports Normal hearing present Card Denies chest pain, Denies chest pain at rest, Denies chest pain with activity and Denies pedal edema Resp Denies cough GI Denies abdominal pain Musc Denies abnormal gait, Denies muscle cramps and Denies radiating pain into limb Skin/Breast Denies skin ulcer and Denies wounds Neuro Reports Normal hearing present and Denies abnormal gait Psych Reports no additional complaints Physical Exam Const General: cooperative, healthy appearing and comfortable Orientation/consciousness: oriented to person, oriented to place and oriented to time HEENT Head: Yes normal to inspection Neck Neck: Yes normal visual inspection Carotids: no bruits Chest Chest palpation & inspection: normal inspection of the chest Resp Effort & Inspection: normal respiratory effort and able to speak in complete sentences Auscultation: clear to auscultation bilaterally, no crackles, no rales, no rhonchi and no wheezes Cardio Rate: regular rate Rhythm: regular rhythm Heart sounds: S1 normal heart sound present and S2 normal heart sound present Bruits: no carotid bruits Peripheral pulses: Peripheral pulses 2+ throughout GI Inspection: Yes normal to inspection Skin Wounds: no wounds Hair: normal Neuro General: oriented to person, oriented to place and oriented to time Cranial nerves: Yes CN's II-XII intact bilaterally and Yes Normal hearing present Cognition (Neuro): normal cognition Motor exam (neuro): 5/5 motor strength present throughout Extrem Other: venous exam: Palpable DP bilaterally. Left leg +2 edema right leg +1 edema. General: No clubbing, No cyanosis and No edema Psych Appearance: grossly normal Mental Status: mental status grossly normal Speech and movement: Normal speech and movement present Assessment & Plan Assessment & Plan (1) DVT (deep venous thrombosis): Comment: 09/15/2002 - IVC filter placement Kevin Valverde by Dr. Coto 06/11/2024 - mechanical venous thrombectomy 07/20/2024 - vena cava filter removal by Dr. Covarrubias Code(s): I82.409 - Acute embolism and thrombosis of unspecified deep veins of unspecified lower extremity Category: Medical Qualifiers: Affected thrombotic vein of extremity: iliac Chronicity: acute DVT location: lower extremity Laterality: bilateral Qualified Code(s): I82.423 - Acute embolism and thrombosis of iliac vein, bilateral Plan: In short patient is doing well status post filter removal. He will require to be on long-term anticoagulation. We did have an extensive discussion about the pathophysiology of DVTs the possible genetic component of this and the possibility of his kids even having clotting disorders. I do think that most of this is trauma related and coincidental. He will follow up with us in 6 months' time to see the status of his lower extremities. At the current time we did discuss routine conservative measures including compression elevation and exercise. Will follow up with us in 6 months. Should there be any interval issues happy to see him back sooner. Thank you for allowing us to assist in his care Coding Level of Care Code Est Pt Level 4 (62389) Complex EM visit Add On G2211 Diagnoses Acute deep vein thrombosis (DVT) of iliac vein of both lower extremities I82.423 Affected thrombotic vein of extremity: iliac Chronicity: acute DVT location: lower extremity Laterality: bilateral
== END 2024-08-04 15:33 | disposition home or self-care (01) ==
PROVIDERS: PCP Internal Medicine; Visit Provider Surgery Vascular Surgery
DX: I82.423 Acute embolism and thrombosis of iliac vein, bilateral (principal)
CPT/HCPCS: 99214

== ENCOUNTER 2024-12-22 14:59 | Outpatient (AMB) | payer BC, SELFPAY ==
--- NOTE | 2024-12-22 15:13 | A.OFFVIS_ITS ---
Intake Visit Reasons: Bilateral leg swelling Intake Note: Patient presents for bilateral leg swelling. Both legs are discolored and has red rash looking spots all over both legs. Both legs are swollen. Accompanied by: Self / Same As Patient Allergies No Known Allergies Allergy (Verified 12/22/24 16:41) HPI HPI Bilateral leg swelling: Details: Ronnie is presenting today for concerns for bilateral lower extremity swelling (ongoing) as well as a rash on his legs as well as abdomen/chest, after starting Eliquis. He states the rash started with a couple of small spots in Jul after the IVC filter removal and has progressed to a more extensive rash with pain and itching. He states it has been getting progressively worse since Jul but has not sought out help. He states he has been taking Nae with no relief and using hydrocortisone cream, also with no relief. He denies any shortness of breath, diff breathing, and chest pain. [facility] Medical History Essential hypertension Insomnia Swelling of left lower extremity HTN (hypertension) Erectile dysfunction Erythrocytosis Vitamin D deficiency Pure hypercholesterolemia Basal cell carcinoma of skin of right upper eyelid, including canthus Peripheral vascular disease History of polycythemia History of pulmonary embolism Erectile dysfunction History of DVT of lower extremity Insomnia Anxiety Rash Surgical History Hx of anterior cruciate ligament surgery History of arthroscopy of both knees Hx of cholecystectomy History of thrombectomy (06/11/24) S/P IVC filter (~2001) Family History Father Diabetes Mother Diabetes Social History Household Members: None Housing: Apartment Are you a primary anesthesiologist and critical care to a significant other at home: No Do you presently have visiting nurse or other home services: No Alcohol intake: current Alcohol intake frequency: holidays/special occasions only Patient Tobacco Use Status: Former Tobacco user Tobacco use type: Cigarette e-Cigarette/Vaping Use: Never Used Second Hand Smoke Exposure: No service: No Current occupational status: employed 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 Cognitive needs: No Hearing needs: No Vision needs: Yes (Reading Glasses) Review of Systems Const Reports as per HPI and Denies weakness ENT Reports Normal hearing present and Denies dizziness Card Reports as per HPI, Denies chest pain, Denies chest pain at rest, Denies chest pain with activity, Denies dyspnea and Denies dyspnea on exertion Resp Reports as per HPI, Denies cough, Denies dyspnea and Denies dyspnea on exertion GI Reports as per HPI, Denies abdominal pain, Denies nausea and Denies vomiting Musc Denies numbness Skin/Breast Reports as per HPI, Denies erythema and Denies wounds Neuro Reports Normal hearing present, Denies dizziness, Denies numbness, Denies Sensory deficit (Neuro) and Denies weakness Psych Reports no additional complaints Endo Reports no additional complaints Physical Exam Const General: healthy appearing and no acute distress Orientation/consciousness: patient oriented x3 HEENT Head: Yes normal to inspection Ears: hearing grossly normal bilaterally Mouth: Normal oral and palatal mucosa present Resp Effort & Inspection: normal respiratory effort and able to speak in complete sentences Auscultation: clear to auscultation bilaterally Cardio Jugular venous distension: no JVD Rate: regular rate Rhythm: regular rhythm Heart sounds: S1 normal heart sound present and S2 normal heart sound present Bruits: no abdominal aortic bruits, no carotid bruits, no femoral bruits and no renal bruits Peripheral pulses: Peripheral pulses 2+ throughout GI Other: Maculopapular rash noted all throughout the abdomen, no bleeding or discharge noted. Not painful to palpation. Inspection: Yes normal to inspection Palpation (GI): No Abdominal aortic bruit present Skin General skin exam: no rashes or lesions noted Wounds: no wounds Hair: normal Neuro General: patient oriented x3 Cranial nerves: Yes Normal hearing present Cognition (Neuro): normal cognition Gait exam (Neuro): Normal gait present Motor exam (neuro): 5/5 motor strength present throughout Sensory Exam: No Sensory deficit (Neuro) Extrem Other: Bilateral lower extremities: L>R maculopapular rash with surrounding erythema. There are some open dried blood areas on the left lower medial calf. Some weeping noted in the areas of the clusters of rash with some scabbing. There is clusters of rash noted on the anterior and posterior distal aspects of the calf, where he has the most pain. There is 1/2 nonpitting edema noted. General: Yes normal to inspection, Yes full ROM, Yes capillary refill normal and Yes normal gait Assessment & Plan Assessment & Plan (1) Allergic dermatitis: Code(s): L23.9 - Allergic contact dermatitis, unspecified cause Category: Medical Plan: Ronnie is presenting today with concerns of a rash, that started to occur after starting Eliquis in Jul, s/p IVC filter removal as well as thrombectomy in May. He states that initially the rash started with small spots on his upper calves in Jul and then have progressed to all over both legs and onto his abdomen. He states there are some spots that are painful, particularly in the left lower calf circumferentially and most of it is itchy. He states his significant other has been noting that he has been up in the middle of the night scratching at the rash. He states he has been taking oral Nae and applying topical hydr ocortisone cream with little relief. I discussed with him that he will need to call Dr Almanza, whom has been prescribing the Eliquis, to discuss alternative treatment options for anticoagulation. I discussed with him that he can try oral Benadryl at night and to continue with the Nae daily; he could switch to Zyrtec or Claritin as well. I discussed with him that he could take Pepcid as well for its antihistamine properties. I discussed the most important things is to not scratch it and to reach out to Archie's office to change anticoagulation medications. I discussed that he can reach out to our office if he has any other questions or concerns. Coding Level of Care Code Est Pt Level 3 (06776) Diagnoses Allergic dermatitis L23.9
== END 2024-12-22 15:36 | disposition home or self-care (01) ==
LOC: HO.HVS 14:59
PROVIDERS: PCP Internal Medicine; Visit Provider Physician Assistant Surgical
DX: L23.9 Allergic contact dermatitis, unspecified cause (principal)
CPT/HCPCS: 99213

== ENCOUNTER 2024-12-24 14:24 | Outpatient (REF) | payer BC, SELFPAY ==
--- NOTE | ~2024-12-24 | US_ITS ---
EXAMINATION: US TRIPLEX LOWER EXTREMITY, BILATERAL CLINICAL INFORMATION: Previous exam demonstrated the venous thrombosis COMPARISON: June 10, 2024. TECHNIQUE: Color-flow triplex imaging with spectral analysis and compression Doppler were performed on the bilateral lower extremities. FINDINGS: There is incomplete compression in the right popliteal vein and left femoral vein. The remaining interrogated vessels demonstrated normal augmentation and respiration waveforms and compressibility There is no Mike's cyst. US/US venous duplex LE BI IMPRESSION: Nonocclusive thrombus in the right popliteal vein and left femoral vein. Acute versus old/chronic. Findings were communicated by the k 12 principal technologist to the requesting physician at the time of the examination. Electronically signed by: Lacho Serrato MD 12/24/2024 03:21 PM EDT
== END 2024-12-24 14:25 | disposition home or self-care (01) ==
LOC: HO.US 14:24
PROVIDERS: PCP Internal Medicine; Visit Provider Internal Medicine Medical Oncology
DX: I82.403 Acute embolism and thrombosis of unspecified deep veins of lower extremity, bilateral (principal)
CPT/HCPCS: 93970

== ENCOUNTER → 2024-12-24 14:25 | Outpatient (BNV) | payer BC, SELFPAY | PROVIDERS: PCP Internal Medicine; Visit Provider Radiology Diagnostic Radiology | DX: I82.431 Acute embolism and thrombosis of right popliteal vein (principal); I82.412 Acute embolism and thrombosis of left femoral vein | CPT/HCPCS: 93970 ==

== ENCOUNTER 2025-01-22 14:33 | Outpatient (AMB) | payer BC, SELFPAY ==
[2025-01-22 14:40] VITALS: BP 136/88; PULSE 69; O2SAT 98; BMI 34.1
--- NOTE | 2025-01-22 14:40 | MHC.PC.OV ---
Vital Signs 01/22/25 14:40 Height 5 ft 8 in Weight 224 lb 4 oz BMI 34.1 BP 136/88 Blood Pressure Location Lt brachial Position Sitting Pulse 69 Pulse Source Pulse Oximeter Pulse Oximetry (%) 98 Oxygen Delivery Method Room Air Intake Visit Reasons: Annual exam X Ray Service Technician Required: No Accompanied by: Self / Same As Patient Allergies No Known Allergies Allergy (Verified 01/22/25 15:23) Medication List - Last Reconciled 01/22/25 by Wyatt Buck MD amlodipine 5 mg See Protocol PO DAILY 90 days enoxaparin (Lovenox) 100 mg subcut Q12H hydroxyzine HCl 50 mg PO QID PRN Tobacco use date assessed: 01/22/25 Dental Screening Dental Screen Date: 01/22/25 Did you have a dental visit in the last 12 months?: Yes Did you have a dental problem in the last 6 months where you did not have access to dental care?: No Was dental information given to patient?: Patient has dentist HPI Annual exam HPI Details Patient comes in today for his annual physical examination States that he has been experiencing increased swelling of both his legs ever since he was started on Eliquis when his IVC filter was removed back in July 2024 He reports also breaking out in a recurrent rash/lesions on his legs that start out often as small punctate dark lesions that he states are painful, and that these lesions would then later start oozing some discharge or get bigger, with the pain increasing He was seen by Dr. Almanza last month and was send for venous doppler of [facility] legs, which revealed (+) non-occlusive thrombus in the right popliteal vein and left femoral veins, acute versus old/chronic but likely chronic He was taken off Eliquis and started on Lovenox SQ BID then (has been advised by Dr. Almanza that he will need to be on lifelong anticoagulation) but patient states that his lower leg symptoms persisted without any significant improvement He was also started on Cephalexin by Dr. Almanza, which he states only relieved his leg pains slightly He has tried taking Nae and applied Hydrocortisone cream to his legs over the past few months without any relief or improvement in his leg symptoms Patient adds that he has been mostly wearing shorts for the past few months as he cannot stand any piece of clothing coming in contact with his legs because they get very itchy and unbearable He has several scratch medrano and abrasions on his legs as a result, some of them due to him scratching his legs while others are superficial abrasions from when his legs brush against something He denies any fever, headaches or dizziness Denies any chest pains, no SOB No nausea/vomiting, no abdominal pain No change in bowel habits noted He denies any acute urinary symptoms Patient states that he had a colonoscopy done in the past but it has been over 10 years since and he is due for repeat colonoscopy [facility] Medical History (Updated 01/24/25 @ 06:48 by Wyatt Buck MD) Essential hypertension Insomnia Swelling of left lower extremity HTN (hypertension) Erectile dysfunction Erythrocytosis Vitamin D deficiency Pure hypercholesterolemia Basal cell carcinoma of skin of right upper eyelid, including canthus Peripheral vascular disease History of polycythemia History of pulmonary embolism Erectile dysfunction History of DVT of lower extremity Insomnia Anxiety Rash Surgical History (Updated 01/24/25 @ 06:28 by Wyatt Buck MD) History of colonoscopy Hx of anterior cruciate ligament surgery History of arthroscopy of both knees Hx of cholecystectomy History of thrombectomy (06/11/24) S/P IVC filter (~2001) Family History Father Diabetes Mother Diabetes Social History Household Members: None Housing: Apartment Are you a primary director of home care hospice to a significant other at home: No Do you presently have visiting nurse or other home services: No Alcohol intake: current Alcohol intake frequency: holidays/special occasions only Patient Tobacco Use Status: Former Tobacco user Tobacco use type: Cigarette e-Cigarette/Vaping Use: Never Used Second Hand Smoke Exposure: No service: No Current occupational status: employed 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 1. Little interest or pleasure in doing things: several days 2. Feeling down, depressed, or hopeless: several days 3. Trouble falling or staying asleep, or sleeping too much: several days 4. Feeling tired or having little energy: several days 5. Poor appetite or overeating: not at all 6. Feeling bad about yourself - or that you are a failure or have let yourself or your family down: several days 7. Trouble concentrating on things, such as reading the newspaper or watching television: not at all 8. Moving or speaking so slowly that other people could have noticed. Or the opposite - being so fidgety or restless that you have been moving around a lot more than usual: not at all 9. Thoughts that you would be better off or of hurting yourself in some way: not at all Total score: 5 Depression Screening Interpretation: Positive (mostly related to his recurrent leg symptoms for the past few months) Depression Screening Follow-up: Follow-up Visit Requested and Declines treatment Depression Screening Done: Yes 89095 - PHQ-9 Billing: Yes Source: Developed by Drs. Kaleb Salomon, Alla Douglas, Benito Bello and colleagues, with an educational renetta from [employer]. Thrive Questionnaire Date Thrive assessed: 01/22/25 I am a: Patient What is your living situation today?: I have a steady place to live Within the past 12 months, did the food you bought not last and you didn't have the money to get more?: Never true Within the past 12 months, did you worry whether your food would run out before you got money to buy more?: Never true Do you have trouble paying for medicines?: No Do you have trouble getting transportation to medical appointments?: No Do you have trouble paying your heating and electricity bill?: No Do you have trouble taking care of your child, family member or friend?: No Do you have trouble with day-to-day activities such as bathing, preparing meals, shopping, managing finances, etc.?: No Are you currently unemployed and looking for a job?: No Are you interested in more education?: No Please select the resources that you would like help with: None Currently or been in a relationship where the following occur: No concerns reported THRIVE Score: 0 AUDIT C Alcohol Use Questionnaire (AUDIT-C) 1. How often do you have a drink containing alcohol?: Never 3. How often do you have six or more drinks on one occasion?: Never Total Score: 0 Score Reviewed/Action Taken: Yes SCOTTIE-7 AMB Questionnaire SCOTTIE-7 Date SCOTTIE - 7 assessed: 01/22/25 Feeling nervous, anxious, or on edge: 1 = Several days Not being able to stop or control worryin = Several days Worrying too much about different things: 1 = Several days Trouble relaxin = Several days Being so restless that it is hard to sit still: 1 = Several days Becoming easily annoyed or irritable: 1 = Several days Feeling afraid as if something awful might happen: 1 = Several days Total SCOTTIE-7 score (0-4 normal; 5-9 mild; 10-14 moderate; 15-21 severe): 7 Source: Developed by Drs. Kaleb Salomon, Alla Douglas, Benito Bello and colleagues, with an educational renetta from [employer]. Review of Systems Const Denies chills, Denies fatigue, Denies fever(s), Denies headache(s), Denies malaise and Denies weakness Eyes Denies blurry vision, Denies change in vision, Denies irritation and Denies itchy eyes ENT Denies dysphagia, Denies dizziness, Denies otalgia, Denies headache(s), Denies nasal congestion, Denies neck pain, Denies odynophagia and Denies sore throat Card Denies chest pain, Denies rapid heart rate, Denies irregular heart rhythm, Denies palpitations and Denies dyspnea Resp Denies chest congestion, Denies cough, Denies dyspnea and Denies wheezing GI Denies abdominal pain, Denies bloating, Denies constipation, Denies dysphagia, Denies heartburn, Denies diarrhea, Denies nausea, Denies odynophagia and Denies vomiting Denies hematuria, Denies difficulty urinating, Denies dysuria, Denies urinary frequency and Denies urinary urgency Musc Denies back pain, Denies arthralgias, Denies joint swelling, Denies muscle weakness and Denies neck pain Skin/Breast Details: recurrent itchy rash and painful lesions on both legs since July 2024 (see HPI for details) Neuro Denies dizziness, Denies headache(s), Denies paresthesias and Denies weakness Endo Denies fatigue and Denies palpitations Anton/Lymph Details: increased swelling of both lower legs since IVC filter was removed and he was started on Eliquis in July 2024 Aller/Immun Denies itchy eyes and Denies wheezing Physical exam (Primary Care) Vital Signs: Last Vital Signs Pulse 69 01/22/25 14:40 BP 136/88 01/22/25 14:40 Pulse Ox 98 01/22/25 14:40 Oxygen Delivery Method Room Air 01/22/25 14:40 BMI result Body Mass Index 34.1 Tobacco/Smoking Status: Tobacco use Status Tobacco use date assessed 01/22/25 01/22/25 14:41 Patient Tobacco Use Status Former Tobacco user 01/22/25 14:41 Tobacco use type Cigarette 01/22/25 14:41 e-Cigarette/Vaping Use Never Used 01/22/25 14:41 PHQ-9: PHQ-9 Score PHQ-9: Total score 5 01/22/25 15:25 Depression Screening Interpretation: Positive (mostly related to his recurrent leg symptoms for the past few months) Depression Screening Follow-up: Follow-up Visit Requested and Declines treatment Thrive Assessment: Date of Thrive Assessment Date Thrive assessed 01/22/25 01/22/25 14:41 Currently or been in a relationship where the following occur: No concerns reported Const General: no acute distress, alert and awake Orientation/consciousness: patient oriented x3 HENMT Head: Yes normocephalic and Yes atraumatic Ears: external ears normal, TM's normal bilaterally and EAC's normal General nose exam: No nasal discharge present Face and sinus: Yes normal facial exam and Yes sinuses nontender Teeth and gingiva: dentition normal Throat: Yes posterior oropharynx normal and Yes tonsils normal (no TP congestion) Eyes Eyelids: Yes eyelids normal Conjunctivae: conjunctivae normal Pupils: Equal, round and reactive pupils present EOM: EOMs intact bilaterally Neck Neck: Yes supple and No lymphadenopathy Thyroid: Thyroid normal Resp Auscultation: clear to auscultation bilaterally, no rales and no wheezes Cardio Rate: regular rate Rhythm: regular rhythm Heart sounds: no murmurs GI Palpation (GI): Soft to palpation, nontender and No hepatosplenomegaly present Auscultation: normal bowel sounds General: Yes no CVA tenderness Back/Spine/Pelvis Back: no CVA tenderness Thoracic/Lumbar Spine: thoracic and lumbar spine normal to inspection Skin Other: (+) few small punctate, dark/hyperpigmented lesions on both legs; (+) multiple dried/healing abrasions noted over both lower legs Neuro General: patient oriented x3, moves all extremities, no focal motor deficits and CN's II-XI intact bilaterally Cranial nerves: Yes Equal, round and reactive pupils present Cognition (Neuro): normal cognition Gait exam (Neuro): Normal gait present Extrem Other: 2+ bipedal edema, with the left side slightly worse than the right General: No clubbing and No cyanosis Coding Level of Care Code Est Pt Prev Care 40-64y(85053) Diagnoses Annual physical exam Z00.00 Pure hypercholesterolemia E78.00 Essential hypertension I10 History of DVT of lower extremity Z86.718 History of pulmonary embolism Z86.711 Erythrocytosis D75.1 Skin lesion of lower extremity L98.9 Bilateral lower extremity edema R60.0 Vitamin D deficiency E55.9 Insomnia, unspecified type G47.00 Insomnia type: unspecified Anxiety F41.9 Obesity (BMI 30-39.9) E66.9 Colon cancer screening Z12.11 Additional Codes PHQ-9 - 21634 - PHQ-9 Billing: Yes ([id number]) Assessment & Plan Assessment & Plan (1) Annual physical exam: Code(s): Z00.00 - Encounter for general adult medical examination without abnormal findings Category: Medical Plan: Check labs He is due for repeat colonoscopy - reportedly had his last screening colonoscopy done over 10 years ago (2) Pure hypercholesterolemia: Code(s): E78.00 - Pure hypercholesterolemia, unspecified Category: Medical Plan: Reinforced low cholesterol diet Will have him recheck his labs and fasting lipids GLADYS for follow up - have reminded patient that we have not had a chance to recheck his cholesterol levels since 2019 so he should try to get his labs done as soon as possible (3) Essential hypertension: Code(s): I10 - Essential (primary) hypertension Category: Medical Plan: Reinforced low sodium diet - goal is systolic BP of 120 mm or less Continue Amlodipine 5 mg QD Patient is reminded to continue monitoring his blood pressure regularly (4) History of DVT of lower extremity: Code(s): Z86.718 - Personal history of other venous thrombosis and embolism Category: Medical Plan: (+) Hx of pulmonary embolism and DVT of both upper and lower extremities and he had a Tee filter placed back in 2001 He used to be on anticoagulation but was cleared to stop taking his Coumadin in 2019 Patient was then lost to follow up with hematology/oncology for the next 2 to 3 years He recently went to the ER this past May 2024 for increasing bilateral leg pain and weakness and increasing low back pain Imaging studies done at the ER revealed (+) 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 Vascular surgery was consulted, who recommended starting IV heparin and patient was then admitted for further management He ultimately underwent thrombectomy and subsequent removal of his IVC filter and was started on Eliquis 5 mg BID He was taken off Eliquis last month (see above for details) and started on subcutaneous Lovenox 100 mg Q 12 instead Follow up with vascular surgery and hematology as scheduled (5) History of pulmonary embolism: Code(s): Z86.711 - Personal history of pulmonary embolism Category: Medical Plan: (+) Hx of pulmonary embolism and DVT of both upper and lower extremities and he had a Tee filter placed back in 2001 He used to be on anticoagulation but was cleared to stop taking his Coumadin in 2018 Patient was then lost to follow up with hematology/oncology for the next 2 to 3 years Was seen subsequently last year (2023) and was advised that he needs to be on lifelong anticoagulation and was started on Eliquis when his IVC filter was removed back in July 2024 (6) Erythrocytosis: Code(s): D75.1 - Secondary polycythemia Category: Medical Plan: (+) Hx of pulmonary embolism and DVT of both upper and lower extremities and he had a Tee filter placed back in 2001 He used to be on anticoagulation but was cleared to stop taking his Coumadin in 2018 Patient was then lost to follow up with hematology/oncology for the next few years (7) Skin lesion of lower extremity: Code(s): L98.9 - Disorder of the skin and subcutaneous tissue, unspecified Category: Medical Plan: Patient reports breaking out in recurrent small punctate, hyperpigmented lesions that he states are painful and tend to ooze/drain some fluid at times Will start him empirically for now on oral Doxycycline 100 mg BID x 7 days He reports only slight improvement of his symptoms with Cephalexin started by Dr. Almanza last month (8) Bilateral lower extremity edema: Code(s): R60.0 - Localized edema Category: Medical Plan: Venous doppler of the lower extremities done last month revealed (+) nonocclusive thrombus in the right popliteal vein and left femoral vein, acute versus old/chronic He was switched from Eliquis 5 mg BID to subcutaneous Lovenox 100 mg BID last month Follow up with hematology and with vascular surgery as scheduled (9) Vitamin D deficiency: Code(s): E55.9 - Vitamin D deficiency, unspecified Category: Medical Plan: Will also recheck his Vitamin D level for follow up (10) Insomnia: Code(s): G47.00 - Insomnia, unspecified Category: Medical Qualifiers: Insomnia type: unspecified Qualified Code(s): G47.00 - Insomnia, unspecified Plan: Sleep hygiene reinforced (11) Anxiety: Code(s): F41.9 - Anxiety disorder, unspecified Category: Medical Plan: He used to take Buspirone 10 mg BID but has not needed to take any Rx for the past few years now (12) Obesity (BMI 30-39.9): Code(s): E66.9 - Obesity, unspecified Category: Medical Plan: Reinforced diet/exercise as tolerated/lose weight (13) Colon cancer screening: Code(s): Z12.11 - Encounter for screening for malignant neoplasm of colon Category: Medical Plan: Will refer him to GI for repeat colonoscopy as his last colonoscopy was over 10 years ago now Plan Follow up in 6 months Orders: Referrals Gastroenterology Referral Z12.11 - Encounter for screening for malignant neoplasm of colon Medications: New doxycycline hyclate 100 mg PO BID 7 days 14 caps 0RF
== END 2025-01-22 15:30 | disposition home or self-care (01) ==
LOC: HO.HMCH 14:34
PROVIDERS: PCP Internal Medicine; Visit Provider Internal Medicine
DX: Z00.00 Encounter for general adult medical examination without abnormal findings (principal); E78.00 Pure hypercholesterolemia, unspecified; E66.9 Obesity, unspecified; Z68.34 Body mass index [BMI] 34.0-34.9, adult; I10 Essential (primary) hypertension; Z86.718 Personal history of other venous thrombosis and embolism; Z86.711 Personal history of pulmonary embolism; D75.1 Secondary polycythemia; L98.9 Disorder of the skin and subcutaneous tissue, unspecified; R60.0 Localized edema; E55.9 Vitamin D deficiency, unspecified; G47.00 Insomnia, unspecified

== ENCOUNTER → 2025-01-22 14:33 | Outpatient (BNVA) | payer BC, SELFPAY | PROVIDERS: PCP Internal Medicine; Visit Provider Internal Medicine | DX: Z00.00 Encounter for general adult medical examination without abnormal findings (principal); E78.00 Pure hypercholesterolemia, unspecified; I10 Essential (primary) hypertension; D75.1 Secondary polycythemia; L98.9 Disorder of the skin and subcutaneous tissue, unspecified; R60.0 Localized edema; E55.9 Vitamin D deficiency, unspecified; G47.00 Insomnia, unspecified; F41.9 Anxiety disorder, unspecified; E66.9 Obesity, unspecified; Z86.711 Personal history of pulmonary embolism; Z86.718 Personal history of other venous thrombosis and embolism; Z79.899 Other long term (current) drug therapy | CPT/HCPCS: 96127 ==

== ENCOUNTER 2025-02-02 10:26 | Outpatient (AMB) | payer BC, SELFPAY ==
[2025-02-02 10:28] VITALS: BMI 34.1
--- NOTE | 2025-02-02 10:28 | A.OFFVIS_ITS ---
Vital Signs 02/02/25 10:28 Height 5 ft 8 in Weight 224 lb BMI 34.1 Intake Visit Reasons: 6 month Left leg check Intake Note: 6 mo leg check s/p filter removal 07/20/24 & thrombectectomy 06/11/24. Pt states he was seen about a month ago by Mary MENCHACA for changes in Left LE. Pt now has drainage from wounds. States that blood thinners were changed through hematology due to potential allergy to the eliquis to lovenox injections. Pt states today is the worst pain he has had in his Left LE w/ swelling and drainage from wounds. Painful to ambulate and also has SOB. 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 Initially, an IVC filter was placed in 2001, later removed in July 2024, following a May 2024 thrombectomy. He reports left leg pain that has worsened over the past three to four months, described as throbbing and intense, especially upon waking. The pain is associated with skin drainage and changes in coloration, interrupted sleep, and aggravated despite leg elevation. During this period, he has been unable to tolerate compression stockings due to significant discomfort. Current shortness of breath and fatigue have hindered his daily work ability. He most recently underwent ultrasound on 12/24/2024. He is most concerned about his left lower extremity swelling and ulcerations throughout the calf. [facility] Medical History Essential hypertension Insomnia Swelling of left lower extremity HTN (hypertension) Erectile dysfunction Erythrocytosis Vitamin D deficiency Pure hypercholesterolemia Basal cell carcinoma of skin of right upper eyelid, including canthus Peripheral vascular disease History of polycythemia History of pulmonary embolism Erectile dysfunction History of DVT of lower extremity Insomnia Anxiety Rash Surgical History History of colonoscopy Hx of anterior cruciate ligament surgery History of arthroscopy of both knees Hx of cholecystectomy History of thrombectomy (06/11/24) S/P IVC filter (~2001) Family History Father Diabetes Mother Diabetes Social History Household Members: None Housing: Apartment Are you a primary child care center administrator to a significant other at home: No Do you presently have visiting nurse or other home services: No Alcohol intake: current Alcohol intake frequency: holidays/special occasions only Patient Tobacco Use Status: Former Tobacco user Tobacco use type: Cigarette e-Cigarette/Vaping Use: Never Used Second Hand Smoke Exposure: No service: No Current occupational status: employed 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 Cognitive needs: No Hearing needs: No Vision needs: Yes (Reading Glasses) Review of Systems Const Reports as per HPI ENT Reports no additional complaints Card Denies chest pain, Denies chest pain at rest and Denies chest pain with activity Resp Denies chest congestion and Denies cough GI Reports no additional complaints Musc Details: pain over varicosities, aching of lower extremities, swelling, cramping, heaviness and tiredness, itching Denies abnormal gait Skin/Breast Reports pruritus and Denies wounds Neuro Reports no additional complaints and Denies abnormal gait Psych Denies no additional complaints Physical Exam Vital Signs: BMI result Body Mass Index 34.1 Const General: cooperative, healthy appearing and comfortable Orientation/consciousness: oriented to person, oriented to place and oriented to time Neck Carotids: no bruits Chest Chest palpation & inspection: normal inspection of the chest and normal palpation of entire chest wall Resp Effort & Inspection: normal respiratory effort and able to speak in complete sentences Cardio Rate: regular rate Heart sounds: S1 normal heart sound present and S2 normal heart sound present Peripheral pulses: Peripheral pulses 2+ throughout GI Inspection: Yes normal to inspection Skin Other: +2 edema, left leg CEAP Classification C6 - active ulcer Ep - Etiology Primary As - superficial veins P - reflux General skin exam: dry skin Neuro General: oriented to person, oriented to place and oriented to time Extrem Right lower extremity: full ROM, normal capillary refill and edema Left lower extremity: full ROM, normal capillary refill and edema Psych Mental Status: mental status grossly normal Assessment & Plan Assessment & Plan (1) DVT (deep venous thrombosis): Comment: 09/15/2002 - IVC filter placement Kevin Valverde by Dr. Coto 06/11/2024 - mechanical venous thrombectomy 07/20/2024 - vena cava filter removal by Dr. Covarrubias Code(s): I82.409 - Acute embolism and thrombosis of unspecified deep veins of unspecified lower extremity Category: Medical Qualifiers: Affected thrombotic vein of extremity: iliac Chronicity: acute DVT location: lower extremity Laterality: bilateral Qualified Code(s): I82.423 - Acute embolism and thrombosis of iliac vein, bilateral Plan: In short the concern here may be more of a central venous stenosis. I have taken the liberty of ordering a CT venogram.I discussed at length with the patient the plan to conduct a CAT scan of the abdomen to assess the status of previous interventions for clot removal. The balance between managing edema with compression and addressing the patient?s pain was considered, recommending operating room aide compression socks. We also addressed the need for pulmonary evaluation due to increased breathlessness with a referral to a lung specialist. I emphasized careful local wound care with Neosporin and the application of AYLEEN wraps. The importance of frequent symptom reassessment was highlighted. He will follow up with us after testing. Should there be any interval changes happy to see him back sooner. (2) Shortness of breath: Code(s): R06.02 - Shortness of breath Category: Medical Plan: Concerned about his overall respiratory status. He does complain of some shortness of breath and difficulty performing any significant activities. I have taken the liberty of ordering a pulmonary consult. He will follow up with us in regards to his CAT scan. Thank you for allowing us to assist in his care. Orders: Orders Creatinine Today I82.423 - Acute embolism and thrombosis of iliac vein, bilateral CT angio abdomen pelvis 1 Week I82.423 - Acute embolism and thrombosis of iliac vein, bilateral Blood Urea Nitrogen Today I82.423 - Acute embolism and thrombosis of iliac vein, bilateral Coding Level of Care Code Est Pt Level 4 (96070) Diagnoses Acute deep vein thrombosis (DVT) of iliac vein of both lower extremities I82.423 Affected thrombotic vein of extremity: iliac Chronicity: acute DVT location: lower extremity Laterality: bilateral Shortness of breath R06.02
== END 2025-02-02 11:01 | disposition home or self-care (01) ==
LOC: HO.HVS 10:26
PROVIDERS: PCP Internal Medicine; Visit Provider Surgery Vascular Surgery
DX: I82.423 Acute embolism and thrombosis of iliac vein, bilateral (principal); R06.02 Shortness of breath
CPT/HCPCS: 99214

== ENCOUNTER → 2025-02-02 10:26 | Outpatient (BNVA) | payer BC, SELFPAY | PROVIDERS: PCP Internal Medicine; Visit Provider Surgery Vascular Surgery ==

== ENCOUNTER 2025-03-29 15:19 | Outpatient (REF) | payer BC, SELFPAY ==
--- NOTE | ~2025-03-29 | CT_ITS ---
EXAMINATION: CT ANGIOGRAM ABDOMEN AND PELVIS CLINICAL INFORMATION: I82.423 - Acute embolism and thrombosis of iliac vein, bilateral , concern for May-Thurner syndrome COMPARISON: June 10, 2024 TECHNIQUE: Multiple axial images were obtained through the abdomen and pelvis following the administration of 80 mL of Omnipaque 350 intravenous contrast. Images were reviewed on a dedicated 3-D workstation. This CT examination was performed using dose optimization techniques as appropriate, variously including the following: *Automated exposure control *Adjustment of mA and/or kV according to patient size (this includes techniques or standardized protocols for targeted exams where dose is matched to indication/reason for exam; i.e. extremities or head) *Use of iterative reconstruction technique FINDINGS: Vascular: IVC is unremarkable. Infrarenal IVC filter has been removed. Since prior examination, the diameter of the IVC just cephalad to the confluence of the common iliac veins is reduced in diameter. It measures 9 mm anterior posterior, previously 23 mm. Splenic and portal veins are patent. Mild multifocal atherosclerotic calcifications are present. The common iliac veins demonstrate no extrinsic compression. Right external iliac vein demonstrates heterogeneous enhancement (e.g. axial CT #12 image 77/115) which could represent residual nonocclusive thrombus that was more extensive on the prior. Lungs: There is minimal pleural thickening or scarring in the posterior left lung base. Liver is unremarkable. There are clips in the gallbladder fossa and changes from cholecystectomy. There is no extrahepatic or and hepatic biliary ductal dilation. Pancreas is unremarkable. Spleen is unremarkable. Adrenal glands are unremarkable. Kidneys demonstrate a benign simple renal cyst in the mid right kidney. There is minimal cortical thinning bilaterally. Bladder: Bladder wall thickening and adjacent tic fat stranding has resolved. Gastrointestinal tract: The GI tract is unremarkable. Bones: L1-2 demonstrates moderate degenerative disc disease. CT/CT angio abdomen pelvis IMPRESSION: No evidence of extrinsic compression of the common iliac veins by writing iliac arteries. Possible minimal residual nonocclusive thrombus in the mid right external iliac vein. Interval retrieval of IVC filter. Interval decrease in diameter of the lower IVC, just cephalad to the confluence of the common iliac veins. Mild renal cortical thinning. Fleischner guidelines were followed. Electronically signed by: Floyd Berger MD 03/29/2025 05:04 PM EDT
[2025-03-29] MEDS: iohexoL 350 MG/ML 100 ML INFUS..BTL IV (16:22)
== END 2025-03-29 15:20 | disposition home or self-care (01) ==
LOC: HO.CT 15:19
PROVIDERS: PCP Internal Medicine; Visit Provider Surgery Vascular Surgery
DX: I82.423 Acute embolism and thrombosis of iliac vein, bilateral (principal)
CPT/HCPCS: 74174; Q9967

== ENCOUNTER → 2025-03-29 15:22 | Outpatient (BNV) | payer BC, SELFPAY | PROVIDERS: PCP Internal Medicine; Visit Provider Radiology Diagnostic Radiology | DX: I82.423 Acute embolism and thrombosis of iliac vein, bilateral (principal) | CPT/HCPCS: 74174 ==

== ENCOUNTER 2025-04-27 14:47 | Outpatient (AMB) | payer BC, SELFPAY ==
[2025-04-27 14:49] VITALS: BMI 33.8
--- NOTE | 2025-04-27 14:49 | A.OFFVIS_ITS ---
Vital Signs 04/27/25 14:49 Height 5 ft 8 in Weight 222 lb BMI 33.8 Intake Visit Reasons: follow up s/p CTA Abd/Pelvis 03/29/25 Intake Note: follow up CTA Abd/pelvis 03/29/25 for hx of thrombectomy 06/11/24 & IVC filter retrieval 07/20/24. Pt still has non-healing ulcers on right ankle. And seems to have some blood build up or discoloration of the right ankle. Pt states tender to the touch and changes dressing daily if not twice daily. 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 Manuscript Editor Required: No Accompanied by: Self / Same As Patient Allergies apixaban (From EliEpitiro) Adverse Reaction (Mild, Verified 04/27/25 14:59) Rash HPI HPI follow up s/p CTA Abd/Pelvis 03/29/25: Details: Very pleasant 55-year-old gentleman presents for follow-up regarding venous disease. He had underwent mechanical venous thrombectomy in May of 2024. Later he underwent removal of IVC filter in July of 2024. He had been doing relatively well since that time has developed new dermatitis or venous skin changes in the left medial calf. In addition he notes some swelling and discomfort in the left leg. He now presents for follow-up with CT venogram. [facility] Medical History Essential hypertension Insomnia Swelling of left lower extremity HTN (hypertension) Erectile dysfunction Erythrocytosis Vitamin D deficiency Pure hypercholesterolemia Basal cell carcinoma of skin of right upper eyelid, including canthus Peripheral vascular disease History of polycythemia History of pulmonary embolism Erectile dysfunction History of DVT of lower extremity Insomnia Anxiety Rash Surgical History History of colonoscopy Hx of anterior cruciate ligament surgery History of arthroscopy of both knees Hx of cholecystectomy History of thrombectomy (06/11/24) S/P IVC filter (~2001) Family History Father Diabetes Mother Diabetes Social History Household Members: None Housing: Apartment Are you a primary manager of care to a significant other at home: No Do you presently have visiting nurse or other home services: No Alcohol intake: current Alcohol intake frequency: holidays/special occasions only Patient Tobacco Use Status: Former Tobacco user Tobacco use type: Cigarette e-Cigarette/Vaping Use: Never Used Second Hand Smoke Exposure: No service: No Current occupational status: employed 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 Cognitive needs: No Hearing needs: No Vision needs: Yes (Reading Glasses) Review of Systems Const Reports as per HPI ENT Reports no additional complaints Card Denies chest pain, Denies chest pain at rest and Denies chest pain with activity Resp Denies chest congestion and Denies cough GI Reports no additional complaints Musc Details: pain over varicosities, aching of lower extremities, swelling, cramping, heaviness and tiredness, itching Denies abnormal gait Skin/Breast Reports pruritus and Denies wounds Neuro Reports no additional complaints and Denies abnormal gait Psych Denies no additional complaints Physical Exam Vital Signs: BMI result Body Mass Index 33.8 Const General: cooperative, healthy appearing and comfortable Orientation/consciousness: oriented to person, oriented to place and oriented to time Neck Carotids: no bruits Chest Chest palpation & inspection: normal inspection of the chest and normal palpation of entire chest wall Resp Effort & Inspection: normal respiratory effort and able to speak in complete sentences Cardio Rate: regular rate Heart sounds: S1 normal heart sound present and S2 normal heart sound present Peripheral pulses: Peripheral pulses 2+ throughout GI Inspection: Yes normal to inspection Skin Other: +2 edema, active ulcer in left calf measuring 6 x 6 cm. CEAP Classification C6 - active ulceration Ep - Etiology Primary As - superficial veins P - reflux General skin exam: dry skin Neuro General: oriented to person, oriented to place and oriented to time Extrem Right lower extremity: full ROM, normal capillary refill and edema Left lower extremity: full ROM, normal capillary refill and edema Psych Mental Status: mental status grossly normal Results Reviewed Results Reviewed: CT scan from 03/29/2024 was reviewed. No compression of iliac veins. Vena cava appears to be clean with no evidence of thrombus and interval removal of filter. There is minimal residual thrombus in the right external iliac vein. Written report and images were reviewed. Assessment & Plan Assessment & Plan (1) DVT (deep venous thrombosis): Comment: 09/15/2002 - IVC filter placement Kevin Valverde by Dr. Coto 06/11/2024 - mechanical venous thrombectomy 07/20/2024 - vena cava filter removal by Dr. Covarrubias Code(s): I82.409 - Acute embolism and thrombosis of unspecified deep veins of unspecified lower extremity Category: Medical Qualifiers: Affected thrombotic vein of extremity: iliac Chronicity: acute DVT location: lower extremity Laterality: bilateral Qualified Code(s): I82.423 - Acute embolism and thrombosis of iliac vein, bilateral Plan: Central deep system appears to be doing relatively well postprocedure. Does not appear to have any evidence of May-Thurner on CAT scan. We will continue to workup left lower extremity (2) Varicose veins of left lower extremity with inflammation: Code(s): I83.12 - Varicose veins of left lower extremity with inflammation Category: Medical Plan: Concern here is due to his central clot previous central clot he may have some axial reflux here. I have taken the liberty of ordering left lower extremity venous insufficiency testing. He will follow up with us after testing. (3) Dermatitis: Code(s): L30.9 - Dermatitis, unspecified Category: Medical Plan: He does have a dermatitis or venous skin changes on the left lower extremity. We will try topical steroids to see if there is any improvement with that. In addition we will workup for further venous disease. Orders: Orders US venous duplex LE LT Today I83.12 - Varicose veins of left lower extremity with inflammation Medications: New hydrocortisone 2.5% Please apply to left calf and ankle skin with irritation 1 appl topical BID PRN 20 grams 0RF skin irritation L30.9 - Dermatitis, unspecified Coding Level of Care Code Est Pt Level 4 (88743) Diagnoses Acute deep vein thrombosis (DVT) of iliac vein of both lower extremities I82.423 Affected thrombotic vein of extremity: iliac Chronicity: acute DVT location: lower extremity Laterality: bilateral Varicose veins of left lower extremity with inflammation I83.12 Dermatitis L30.9
--- OUTSIDE RECORDS SUMMARY | 2025-04-27 15:40 | XMS_ITS | Clinical Summary ---
Author Organization [facility] Address [address] [place] [phone] Phone Care Team Providers Care Dial Printer Name Role Phone Wyatt Buck MD Primary Care Provider [phone] Allergies No known active allergies Medications No known medications Social History Tobacco Use Types Packs/Day Years Used Date Smoking Tobacco: Former Cigarettes Smokeless Tobacco: Former Tobacco Cessation:Counseling Given: Not Answered Education Answer Date Recorded Are you interested in more education? Not on amira e 10/16/2023 Are you concerned about learning? Not on file 10/16/2023 No 10/16/2023 No 10/16/2023 Digital Access Answer Date Recorded No 10/16/2023 No 10/16/2023 Reliable internet access at home? Not on file 10/16/2023 Device with a working camera? Not on file Sex and Gender Information Value Date Recorded Sex Assigned at Not on file Legal Sex Male 9:13 AM EST Gender Identity Not on file Sexual Orientation Not on file Last Filed Vital Signs Vital Sign Reading Time Taken Comments Blood Pressure 210/110 10/16/2023 9:46 AM EST man ual read Pulse 74 10/16/2023 9:18 AM EST Temperature 36.7 C (98 F) 10/16/2023 9:18 AM EST Respiratory Rate 18 10/16/2023 9:18 AM EST Oxygen Saturation 98% 10/16/2023 9:18 AM EST Inhaled Oxygen Concentration - - Weight 99.8 kg (220 lb) 10/16/2023 9:18 AM EST p er pt Height - - Body Mass Index - - Plan of Treatment Health Maintenance Due Date Last Done Comments Adult Td,Tdap Booster 1968 LIPID PANEL 1968 DEPRESSION SCREENING 1980 SMOKING Hx and SMOKELESS TOBACCO SCREENING 1981 HEPATITIS C SCREENING 1986 HIV ONE-TIME SCREENING (18-6 5 YEARS) 1986 COLOGUARD 2013 COLONOSCOPY 2013 COLORECTAL CANCER SCREENING 2013 FIT TEST 2013 FOBT 2013 SIGMOIDOSCOPY 2013 VIRTUAL COLONOSCOPY 2013 PNEUMOCOCCAL VACCINES (50+ years) (1 of 1 - PCV) 2018 ZOSTER VACCINES (1 of 2) 2018 COVID-19 VACCINE (3 - 2023-2 5 season) 2024 06/23/2022, 10/02/2021 HEPATITIS A VACCINES Aged Out No long er eligible based on patient's age to complete this topic HIB VACCINES Aged Out No longer eligi ble based on patient's age to complete this topic MENINGOCOCCAL VACCINES (ACWY) Aged Out No longer eligible based on patient's age to complete this topic MENINGOCOCCAL VACCINES (B) Aged Out N o longer eligible based on patient's age to complete this topic Medical Devices Not on file [place] [address] [place] [address] [place] [address] Care Teams Dial Printer Relationship Specialty Start Date End Date Wyatt Buck MD [address] [place] [address] [facility] [place] [address] PCP - General Internal Medicine 10/16/23 Additional Source Comments The information contained in this document represents components of the legal health record. It is not the complete legal health record.[facility]
== END 2025-04-27 15:32 | disposition home or self-care (01) ==
LOC: HO.HVS 14:48
PROVIDERS: PCP Internal Medicine; Visit Provider Surgery Vascular Surgery
DX: I82.423 Acute embolism and thrombosis of iliac vein, bilateral (principal); I83.12 Varicose veins of left lower extremity with inflammation; L30.9 Dermatitis, unspecified
CPT/HCPCS: 99214

== ENCOUNTER 2025-05-11 15:30 | Outpatient (AMB) | payer BC, SELFPAY ==
[2025-05-11 15:36] VITALS: BP 140/80; PULSE 63; O2SAT 98; BMI 33.9
--- NOTE | 2025-05-11 15:36 | A.OFFVIS_ITS ---
Vital Signs 05/11/25 15:36 Height 5 ft 8 in Weight 222 lb 10.67 oz BMI 33.9 BP 140/80 H Blood Pressure Location Lt brachial Position Sitting Pulse 63 Pulse Source Pulse Oximeter Pulse Oximetry (%) 98 Oxygen Delivery Method Room Air Intake Visit Reasons: sob Intake Note: pt is here as a new patient for some shortness of breath, he has a history of a very large blood clot in left leg. He states when walking up hills or carrying things he has noticed the shortness of breath. Utilities Manager Required: No Allergies apixaban (From Eliquis) Adverse Reaction (Mild, Verified 05/11/25 16:55) Rash Medication List - Last Reconciled 05/11/25 by Mathew Galindo MD amlodipine 5 mg See Protocol PO DAILY 90 days hydrocortisone 2.5% 1 appl topical BID PRN hydroxyzine HCl 50 mg PO QID PRN rivaroxaban 20 mg PO DAILY Do you need a note to return to daycare/school/sports/work: No HPI HPI sob: Details: This 55 years old gentleman is being seen for the 1st time mainly because of shortness of breath on heavy exertion. This started in the last 1 year or so. Has been miles. Currently he is more aware of the fact that when he walks up hill he feels more short of breath than usual . Denies any chest pain at that time. Also denies cough or wheezing. This shortness of breath resolves with resting. He has extensive past medical history mainly related to thromboembolism and coagulopathy. The past history is extensively described and outlined by Dr. Almanza, as noted below. , In not shell he had the 1st incidence of extensive DVT and large blood clot in the left lung, in 2001. He was treated at [facility], and kept on Coumadin for a few years. This incidence was preceded by left knee surgery ( ACL repair) in 1999 ) He stayed on Coumadin and was followed at 2 anticoagulation clinic. Then Coumadin was stopped for 4-5 years. In year 2023 he had developed bilateral DVT especially in the left lower extremities . He had vascular surgery by Dr. Covarrubias , which involved thrombectomy as well as removal of previous IVC filter . The shawn He was initially on Eliquis but then started on Xarelto 20 mg p.o. daily,which he is still taking The shortness of breath as described above, has started within the last 6-12 months. During this time. He has had no recurrent pulmonary emboli. . He has had anemia and then erythrocytosis in the past but his most recent CBC shows normal hemoglobin. DETAILED PAST MEDICAL HISTORY: He had a left knee surgery in [address] Benitez. Subsequently he had some swelling in the leg and in August of 2002 he suddenly passed out at work. He was in house between 09/07/02 to September 19, 2002. Retrospectively he did have some tiredness and shortness of breath over the previous month or so. He was noted to have Bilateral Pulmonary Emboli at that time. His echo showed right pulmonary artery clot. The carotid Doppler was negative. He was in the ICU on Heparin for a couple of days. The hospital course was as follows: The lower extremity ultrasound revealed bilateral DVTs. He was noted to be jaundiced on September 10 with a bilirubin elevation of 4.2. He had an ultrasound which revealed sludge in the gallbladder. He was evaluated by Dr. Lawrence. He had a CAT scan of the abdomen which was negative. On September 11 he was noted to have diarrhea. He had some nausea and bloating from his symptoms. B12 level was done and that was rather low and small bowel follow through was ordered and he had blood tested for anti-gliadin cell antibodies and that came back positive. he was s tarted on B12 and folate. September 11 he was started on 5 mg of Coumadin. On September 13 he became rather short of breath and had a CTA which revealed multiple clots in both lungs in the lower lobe. On September 15 he had a removable IVC filter placed. On September 12, 2010 his hemoglobin was noted to be low and the kathy hemoglobin was 8, on September 12 and the crit was 22. MCV was 117.6. He was transfused with [address] of the abdomen revealed increased in size, 15 to 16 cm right pleural effusion and small pericardial effusion. The blood work was done and the results are as follows: He had a white count of 5.7. Hemoglobin was 15.2. The hematocrit was 47. The platelets were 245,000. MCV was 104. The retic was 1.1. LDH was 204. Hapto was 34 and for a few days hapto dropped to less than 7. Anti-parietal cell antibody was positive. HIV was negative. B12 was 126 and the folate was 20. Homocysteine level was 10.3. (The range being 5 to 15). Methylmalonic acid was 343. White count went down to 2.6 on September 12 and then gradually came back up. His Hypercoagulable workup revealed: An AT III Ag of 117, AT III activity 45. protein C of 73, Protein S free was 123 and Protein S total was 138. Antiphospholipid antibody was positive. Factor V Leiden mutation was negative. Overall the patient was in the hospital between September 07, 2002 to September 19, 2002. He was on Coumadin for about a year and then it was discontinued. On November 02 he presented to his medical doctor and had an ultrasound done. This revealed extensive thrombus involving the right basilic vein extending proximally into the distal axillary vein. No additional thrombus was seen. The patient was started on Lovenox and Coumadin. He is currently hooked up with the Anti-coag Clinic. Before that he was on the Coumadin being followed in the Coumadin Clinic between December of 2003 thru October of 2006. The most recent INR was checked on November 17 and his INR was 1.9. He was given 12.5 mg. of Coumadin that day and then 10 mg.for five days and 7.5 mg for two days. PATIENT IS NONSMOKER AND HE DOES NOT DRINK ALCOHOL OR INDULGE IN ANY .RECREATIONAL DRUGS [facility] Medical History Essential hypertension Insomnia Swelling of left lower extremity HTN (hypertension) Erectile dysfunction Erythrocytosis Vitamin D deficiency Pure hypercholesterolemia Basal cell carcinoma of skin of right upper eyelid, including canthus Peripheral vascular disease History of polycythemia History of pulmonary embolism Erectile dysfunction History of DVT of lower extremity Insomnia Anxiety Rash Surgical History History of colonoscopy Hx of anterior cruciate ligament surgery History of arthroscopy of both knees Hx of cholecystectomy History of thrombectomy (06/11/24) S/P IVC filter (~2001) Family History Father Diabetes Mother Diabetes Social History Household Members: None Housing: Apartment Are you a primary healthcare technician to a significant other at home: No Do you presently have visiting nurse or other home services: No Alcohol intake: current Alcohol intake frequency: holidays/special occasions only Patient Tobacco Use Status: Former Tobacco user Tobacco use type: Cigarette e-Cigarette/Vaping Use: Never Used Second Hand Smoke Exposure: No service: No Current occupational status: employed 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 Cognitive needs: No Hearing needs: No Vision needs: Yes (Reading Glasses) Review of Systems Const All systems reviewed & are unremarkable except as noted in HPI and below Eyes Reports no additional complaints ENT Reports no additional complaints Card Denies chest pain, Denies syncope, Denies irregular heart rhythm and Reports dyspnea on exertion (ON WALKING UP HILL) Resp Reports as per HPI and Reports dyspnea on exertion (ON WALKING UP HILL) GI Reports no additional complaints Reports erectile dysfunction Musc Reports no additional complaints Skin/Breast Reports rash ( HAS HAD STASIS DERMATITIS OF LOWER EXTREMITIES ESPECIALLY AROUND ANKLES) Neuro Reports no additional complaints and Denies syncope Psych Reports no additional complaints Endo Reports no additional complaints Anton/Lymph Reports no additional complaints Aller/Immun Reports no additional complaints Physical Exam Vital Signs: Last Vital Signs Pulse 63 05/11/25 15:36 BP 140/80 H 05/11/25 15:36 Pulse Ox 98 05/11/25 15:36 Oxygen Delivery Method Room Air 05/11/25 15:36 BMI result Body Mass Index 33.9 Const General: healthy appearing, comfortable, no acute distress, alert and awake Orientation/consciousness: patient oriented x3 HEENT Head: Yes normal to inspection General nose exam: No nasal polyps present and No nasal discharge present Face and sinus: Yes sinuses nontender Mouth: oropharynx normal Throat: Yes posterior oropharynx normal Eyes General: appearance normal, both eyes and all related structures Neck Neck: Yes normal visual inspection, Yes no lymphadenopathy, Yes trachea midline and Yes no JVD Thyroid: Thyroid normal Chest Chest palpation & inspection: normal inspection of the chest, normal palpation of entire chest wall and no tenderness Resp Effort & Inspection: normal respiratory effort Auscultation: clear to auscultation bilaterally, no crackles, no rhonchi and no wheezes Cardio Palpation: normal PMI Rate: regular rate Rhythm: regular rhythm Heart sounds: no gallops and no murmurs Peripheral pulses: Peripheral pulses 2+ throughout GI Palpation (GI): Soft to palpation, nontender, No hepatosplenomegaly present and no masses Auscultation: normal bowel sounds Back/Spine/Pelvis Thoracic/Lumbar Spine: thoracic and lumbar spine normal to inspection Skin General skin exam: no rashes or lesions noted Neuro General: patient oriented x3 and no focal motor deficits Cranial nerves: Yes CN's II-XII intact bilaterally Extrem General: Yes normal to inspection, Yes no clubbing, cyanosis or edema, Yes no calf tenderness and Yes edema (THERE IS MILD EDEMA OF BOTH LEGS WITH VARICOSITIES ,) Psych Appearance: grossly normal and well kempt Speech and movement: Normal speech and movement present Assessment & Plan Assessment & Plan (1) Shortness of breath: Comment: SHORTNESS OF BREATH ESPECIALLY ON EXERTION LIKE WALKING UP HILL, MAY BE RELATED TO PREVIOUS HISTORY OF PULMONARY EMBOLISM. DOES NOT SEEM TO BE RELATED TO ANY OBSTRUCTIVE AIRWAY DISORDER, BUT NEEDS TO CHECK. POSSIBILITIES ARE : RESTRICTIVE LUNG DISEASE PERFUSION DEFECT SECONDARY TO PREVIOUS RECURRENT PULMONARY EMBOLISM. DEVELOPMENT OF PULMONARY HYPERTENSION. Code(s): R06.02 - Shortness of breath Category: Medical Plan: ECHOCARDIOGRAM IS ORDERED. WILL ALSO SCHEDULE FOR V/Q SCAN OF THE LUNGS. PULMONARY FUNCTION TEST TO CHECK FOR ANY OBSTRUCTIVE AIRWAY DISORDER AND ESPECIALLY CHECK FOR DIFFUSION CAPACITY IMPAIRMENT. (2) History of pulmonary embolism: Comment: NOTED IN THE HISTORY ABOVE, HE DOES HAVE PAST HISTORY OF PULMONARY EMBOLISM, DUE TO WHICH HE MAY HAVE A PERMANENT IMPAIRMENT OF SOME FUNCTION OF THE LUNGS. CURRENTLY HE IS ON ACTIVE ANTICOAGULATION, Code(s): Z86.711 - Personal history of pulmonary embolism Category: Medical Plan: HE IS ADVISED TO STAY ON ANTICOAGULATION. (3) DVT (deep venous thrombosis): Comment: 09/15/2002 - IVC filter placement Kevin Valverde by Dr. Coto 06/11/2024 - mechanical venous thrombectomy 07/20/2024 - vena cava filter removal by Dr. Covarrubias Code(s): I82.409 - Acute embolism and thrombosis of unspecified deep veins of unspecified lower extremity Category: Medical Qualifiers: Affected thrombotic vein of extremity: iliac Chronicity: acute DVT location: lower extremity Laterality: bilateral Qualified Code(s): I82.423 - Acute embolism and thrombosis of iliac vein, bilateral Plan: PATIENT DOES HAVE SOME RESIDUAL STASIS EDEMA OF THE LEGS PROBABLY DUE TO CHRONIC RECURRENT THROMBOEMBOLISM. Plan CONTINUE ACTIVE ANTICOAGULATION. Orders: Orders PFT pulmonary function test 05/11/25 R06.02 - Shortness of breath, Z86.711 - Personal history of pulmonary embolism CA echo transthoracic complete 05/11/25 R06.02 - Shortness of breath, Z86.711 - Personal history of pulmonary embolism NM pul perfusion Today R06.02 - Shortness of breath, Z86.711 - Personal history of pulmonary embolism XR chest 2V Today R06.02 - Shortness of breath, Z86.711 - Personal history of pulmonary embolism Coding Level of Care Code New Pt Level 4 (47870) Diagnoses Shortness of breath R06.02 History of pulmonary embolism Z86.711 Acute deep vein thrombosis (DVT) of iliac vein of both lower extremities I82.423 Affected thrombotic vein of extremity: iliac Chronicity: acute DVT location: lower extremity Laterality: bilateral
--- OUTSIDE RECORDS SUMMARY | 2025-05-11 16:26 | XMS_ITS | Clinical Summary ---
Author Organization [facility] Address [address] [place] [id number] Phone Care Team Providers Care Ward Helper Name Role Phone Wyatt Buck MD Primary Care Provider [phone] Allergies No known active allergies Medications No [...] - 2023-2 5 season) 2024 06/23/2022, 10/02/2021 INFLUENZA VACCINE (#1) 2025 , 06/23/2022 HEPATITIS A VACCINES Aged Out No long [...] topic Medical Devices Not on file Insurance Care Teams Ward Helper Relationship Specialty Start Date End Date Wyatt Buck MD [address] [place] [address] [place] [address] PCP - General Internal Medicine 10/16/23 Additional Source Comments The information contained in this document represents components of the legal health record. It is not the complete legal health record.[facility]
== END 2025-05-11 16:07 | disposition home or self-care (01) ==
LOC: HO.HPS 15:31
PROVIDERS: PCP Internal Medicine; Visit Provider Internal Medicine
DX: R06.02 Shortness of breath (principal); Z86.711 Personal history of pulmonary embolism; I82.423 Acute embolism and thrombosis of iliac vein, bilateral
CPT/HCPCS: 99204

== ENCOUNTER 2025-05-25 10:21 | Outpatient (AMB) | payer BC, SELFPAY ==
[2025-05-25 10:22] VITALS: BP 136/86; PULSE 65; O2SAT 98; BMI 33.6
--- NOTE | 2025-05-25 10:22 | A.OFFPC_ITS ---
Vital Signs 05/25/25 10:22 Height 5 ft 8 in Weight 221 lb 4 oz BMI 33.6 BP 136/86 Blood Pressure Location Lt brachial Pulse 65 Pulse Source Pulse Oximeter Pulse Oximetry (%) 98 Oxygen Delivery Method Room Air Intake Visit Reasons: Itchy Rash on Legs Titrator Required: No Accompanied by: Self / Same As Patient Allergies apixaban (From Eliquis) Adverse Reaction (Mild, Verified 05/25/25 10:47) Rash Medication List - Last Reconciled 05/25/25 by Wyatt Buck MD amlodipine 5 mg See Protocol PO DAILY 90 days hydrocortisone 2.5% 1 appl topical BID hydroxyzine HCl 50 mg PO QID PRN rivaroxaban 20 mg PO DAILY Tobacco use date assessed: 05/25/25 Dental Screening Dental Screen Date: 05/25/25 Did you have a dental visit in the last 12 months?: Yes Did you have a dental problem in the last 6 months where you did not have access to dental care?: No Was dental information given to patient?: Patient has dentist HPI Itchy Rash on Legs HPI Details Patient comes in today for evaluation of some itchy rash currently over his inguinal areas bilaterally States that he's had the rash for a few days now and recalls that they just appeared all of a sudden and seems to get more itchy and irritated when he is sweating He denies any recent travel and has not used any new laundry or personal skin care products lately prior to the onset of the rash States that he has not tried using anything OTC as he does not know what to try Adds that he has been having trouble sleeping at night for a while now and feels that this is getting worse Recalls that he has been feeling completely exhausted often lately due to sleep deprivation and that he would literally crash and just fall asleep from pure exhaustion States that he has tried taking some OTC Nyquil at times just to help him get some sleep but he is concerned about taking this too often due to its potential effects on his blood pressure Recalls that he has taken Trazodone in the past and that it did help him before and is wondering if he can go back on Trazodone He denies any headaches or dizziness Denies any chest pains, no SOB No nausea/vomiting, no abdominal pain No change in bowel habits noted [facility] Medical History Essential hypertension Insomnia Swelling of left lower extremity HTN (hypertension) Erectile dysfunction Erythrocytosis Vitamin D deficiency Pure hypercholesterolemia Basal cell carcinoma of skin of right upper eyelid, including canthus Peripheral vascular disease History of polycythemia History of pulmonary embolism Erectile dysfunction History of DVT of lower extremity Insomnia Anxiety Rash Surgical History History of colonoscopy Hx of anterior cruciate ligament surgery History of arthroscopy of both knees Hx of cholecystectomy History of thrombectomy (06/11/24) S/P IVC filter (~2001) Family History Father Diabetes Mother Diabetes Social History Household Members: None Housing: Apartment Are you a primary child care worker to a significant other at home: No Do you presently have visiting nurse or other home services: No Alcohol intake: current Alcohol intake frequency: holidays/special occasions o nly Patient Tobacco Use Status: Former Tobacco user Tobacco use type: Cigarette e-Cigarette/Vaping Use: Never Used Second Hand Smoke Exposure: No service: No Current occupational status: employed 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 1. Little interest or pleasure in doing things: several days 2. Feeling down, depressed, or hopeless: several days 3. Trouble falling or staying asleep, or sleeping too much: several days 4. Feeling tired or having little energy: several days 5. Poor appetite or overeating: not at all 6. Feeling bad about yourself - or that you are a failure or have let yourself or your family down: several days 7. Trouble concentrating on things, such as reading the newspaper or watching television: not at all 8. Moving or speaking so slowly that other people could have noticed. Or the opposite - being so fidgety or restless that you have been moving around a lot more than usual: not at all 9. Thoughts that you would be better off or of hurting yourself in some way: not at all Total score: 5 Depression Screening Interpretation: Positive (mostly related to his recurrent leg symptoms for the past few months) Depression Screening Follow-up: Follow-up Visit Requested and Declines treatment Depression Screening Done: Yes 54424 - PHQ-9 Billing: Yes Source: Developed by Drs. Kaleb Salomon, Alla Douglas, Benito Bello and colleagues, with an educational renetta from [employer]. Thrive Questionnaire Date Thrive assessed: 05/25/25 I am a: Patient What is your living situation today?: I have a steady place to live Within the past 12 months, did the food you bought not last and you didn't have the money to get more?: Never true Within the past 12 months, did you worry whether your food would run out before you got money to buy more?: Never true Do you have trouble paying for medicines?: No Do you have trouble getting transportation to medical appointments?: No Do you have trouble paying your heating and electricity bill?: No Do you have trouble taking care of your child, family member or friend?: No Do you have trouble with day-to-day activities such as bathing, preparing meals, shopping, managing finances, etc.?: No Are you currently unemployed and looking for a job?: No Are you interested in more education?: No Please select the resources that you would like help with: None Currently or been in a relationship where the following occur: No concerns reported THRIVE Score: 0 AUDIT C Alcohol Use Questionnaire (AUDIT-C) 1. How often do you have a drink containing alcohol?: Never 3. How often do you have six or more drinks on one occasion?: Never Total Score: 0 Score Reviewed/Action Taken: Yes SCOTTIE-7 AMB Questionnaire SCOTTIE-7 Date SCOTTIE - 7 assessed: 05/25/25 Feeling nervous, anxious, or on edge: 1 = Several days Not being able to stop or control worryin = Several days Worrying too much about different things: 1 = Several days Trouble relaxin = Several days Being so restless that it is hard to sit still: 1 = Several days Becoming easily annoyed or irritable: 1 = Several days Feeling afraid as if something awful might happen: 1 = Several days Total SCOTTIE-7 score (0-4 normal; 5-9 mild; 10-14 moderate; 15-21 severe): 7 Source: Developed by Drs. Kaleb Salomon, Alla Douglas, Benito Bello and colleagues, with an educational renetta from [employer]. Review of Systems Const Denies chills, Reports difficulty sleeping, Reports fatigue and Denies fever(s) ENT Denies dysphagia, Denies dizziness, Denies otalgia, Denies neck pain and Denies sore throat Card Denies chest pain, Denies irregular heart rhythm, Denies palpitations and Denies dyspnea Resp Denies chest congestion, Denies cough and Denies dyspnea GI Denies abdominal pain, Denies constipation, Denies dysphagia, Denies heartburn, Denies diarrhea, Denies nausea and Denies vomiting Denies difficulty urinating, Denies dysuria and Denies urinary frequency Musc Denies back pain, Denies arthralgias and Denies neck pain Skin/Breast Details: (+) scattered itchy rash over the inguinal areas bilaterally Neuro Denies dizziness Endo Reports fatigue and Denies palpitations Physical exam (Primary Care) Vital Signs: Last Vital Signs Pulse 65 05/25/25 10:22 BP 136/86 05/25/25 10:22 Pulse Ox 98 05/25/25 10:22 Oxygen Delivery Method Room Air 05/25/25 10:22 BMI result Body Mass Index 33.6 Tobacco/Smoking Status: Tobacco use Status Tobacco use date assessed 05/25/25 05/25/25 10:25 Patient Tobacco Use Status Former Tobacco user 05/25/25 10:25 Tobacco use type Cigarette 05/25/25 10:25 e-Cigarette/Vaping Use Never Used 05/25/25 10:25 PHQ-9: PHQ-9 Score PHQ-9: Total score 5 05/25/25 10:55 Depression Screening Interpretation: Positive (mostly related to his recurrent leg symptoms for the past few months) Depression Screening Follow-up: Follow-up Visit Requested and Declines treatment Thrive Assessment: Date of Thrive Assessment Date Thrive assessed 05/25/25 05/25/25 10:25 Currently or been in a relationship where the following occur: No concerns reported Const General: no acute distress and alert HENMT Throat: Yes posterior oropharynx normal and Yes tonsils normal (no TP congestion) Neck Neck: Yes supple and No lymphadenopathy Thyroid: Thyroid normal Resp Auscultation: clear to auscultation bilaterally, no rales and no wheezes Cardio Rate: regular rate Rhythm: regular rhythm Heart sounds: no murmurs GI Palpation (GI): Soft to palpation and nontender Auscultation: normal bowel sounds General: Yes no CVA tenderness Back/Spine/Pelvis Back: no CVA tenderness Skin Other: (+) scattered patchy erythematous rash over the inguinal areas and under the abdominal skin folds bilaterally; (+) few scattered streaks of erythematous rash over both thighs and lower legs Extrem Other: 2+ bipedal edema, with the left side slightly worse than the right General: No clubbing Coding Level of Care Code Est Pt Level 4 (27605) Diagnoses Intertrigo L30.4 Pruritic erythematous rash L29.89 Insomnia, unspecified type G47.00 Insomnia type: unspecified Additional Codes PHQ-9 - 31766 - PHQ-9 Billing: Yes ([id number]) Assessment & Plan Assessment & Plan (1) Intertrigo: Code(s): L30.4 - Erythema intertrigo Category: Medical Plan: Will start patient on Nystatin topical powder [id number] units/gm to apply to his rash over his inguinal areas and under the abdominal skin folds TID until they clear up completely Will start him empirically as well on Fluconazole 100 mg QD x 3 days (2) Pruritic erythematous rash: Code(s): L29.89 - Other pruritus Category: Medical Plan: Will start patient on Nystatin topical cream to apply to the rash on his lower extremities TID PRN (3) Insomnia: Code(s): G47.00 - Insomnia, unspecified Category: Medical Qualifiers: Insomnia type: unspecified Qualified Code(s): G47.00 - Insomnia, unspecified Plan: Sleep hygiene reinforced Will start him back on Trazodone 50 mg Q HS PRN Plan Follow up as scheduled in July 2025 Medications: New nystatin (Nystop) 1 appl topical TID 60 grams 0RF rash over lower abdominal skin folds fluconazole 100 mg PO DAILY 3 tabs 0RF 3 days nystatin 1 appl topical TID 30 grams 0RF rash on legs/thighs trazodone 50 mg PO BEDTIME PRN 30 tabs 1RF sleep
--- OUTSIDE RECORDS SUMMARY | 2025-05-25 12:08 | XMS_ITS | Clinical Summary ---
Author Organization [facility] Address [address] [facility] [address] [place] [address] Phone Care Team Providers Care Production Machine Tender Name Role Phone Wyatt Buck MD Primary Care Provider [phone] [phone] Allergies No known active allergies Medications No [...] 2018 ZOSTER VACCINES (1 of 2) 2018 INFLUENZA VACCINE (#1) 2025 , 06/23/2022 COVID-19 VACCINE (3 - 2024-2 6 season) 2025 06/23/2022, 10/02/2021 HEPATITIS A VACCINES Aged Out [...] Devices Not on file Insurance Care Teams Production Machine Tender Relationship Specialty Start Date End Date Wyatt Buck MD [address] [place] [address] [place] [address] PCP - General Internal Medicine 10/16/23 Additional Source Comments The information contained in this document represents components of the legal health record. It is not the complete legal health record.[facility]
== END 2025-05-25 10:55 | disposition home or self-care (01) ==
LOC: HO.HMCH 10:22
PROVIDERS: PCP Internal Medicine; Visit Provider Internal Medicine
DX: L30.4 Erythema intertrigo (principal); L29.89 Other pruritus; G47.00 Insomnia, unspecified

== ENCOUNTER → 2025-05-25 10:21 | Outpatient (BNVA) | payer BC, SELFPAY | PROVIDERS: PCP Internal Medicine; Visit Provider Internal Medicine | DX: L30.4 Erythema intertrigo (principal); L29.89 Other pruritus; G47.00 Insomnia, unspecified | CPT/HCPCS: 96127 ==

== ENCOUNTER → 2025-06-18 13:51 | Outpatient (REF) | payer BC, SELFPAY ==
--- NOTE | ~2025-06-18 | NM_ITS ---
EXAMINATION: NM LUNG PERFUSION HISTORY: Z86.711 - Personal history of pulmonary embolism. TECHNIQUE: A pulmonary perfusion scan was performed following intravenous administration of 4.0 mCi technetium 99m-MAA. COMPARISON: Correlation is made with PA and lateral views of the chest performed the same day. FINDINGS: There is a segmental perfusion defect involving the posterior segment of the right upper lobe. A small subsegmental perfusion defect is noted involving the anterior segment of the right upper lobe. There is mild patchy activity in the left lower lobe without a definite segmental or subsegmental perfusion defects. According to the modified PIOPED II criteria, findings are nondiagnostic (consistent with intermediate probability for pulmonary emboli}. NM/NM pul perfusion IMPRESSION: Intermediate probability for pulmonary emboli. Further evaluation with CT angiography of the chest should be considered. Electronically signed by: Kaleb Baker MD 06/18/2025 02:34 PM EDT
--- NOTE | ~2025-06-18 | XR_ITS ---
EXAMINATION: XR CHEST CLINICAL INFORMATION: Z86.711 - Personal history of pulmonary embolism COMPARISON: None available. TECHNIQUE: 2 views of the chest were obtained. FINDINGS: The cardiomediastinal silhouette is within normal limits. The lungs are well expanded. There is no focal consolidation, edema, or effusion. No pneumothorax. No acute osseous abnormality. XR/XR chest 2V IMPRESSION: No evidence of acute pulmonary process. Electronically signed by: Robert Iglesias MD 06/18/2025 02:31 PM EDT
--- OUTSIDE RECORDS SUMMARY | 2025-06-18 14:00 | XMS_ITS | Clinical Summary ---
Author Organization [facility] Address [address] [facility] [address] [place] [address] Phone Care Team Providers Care Pharmacy Technician Instructor Name Role Phone Wyatt Buck MD Primary Care Provider [phone] [phone] Allergies No known active allergies Medications No [...] Devices Not on file Insurance Care Teams Pharmacy Technician Instructor Relationship Specialty Start Date End Date Wyatt Buck MD [address] [place] [address] [place] [address] PCP - General Internal Medicine 10/16/23 Additional Source Comments The information contained in this document represents components of the legal health record. It is not the complete legal health record.[facility]
== END ==
LOC: HO.NUCMED 13:51
PROVIDERS: PCP Internal Medicine; Visit Provider Internal Medicine
DX: R06.02 Shortness of breath (principal); Z86.711 Personal history of pulmonary embolism
CPT/HCPCS: 71046; 78580; A9540

== ENCOUNTER → 2025-06-18 13:55 | Outpatient (BNV) | payer BC, SELFPAY | PROVIDERS: PCP Internal Medicine; Visit Provider Radiology Diagnostic Ultrasound | DX: Z86.711 Personal history of pulmonary embolism (principal) | CPT/HCPCS: 71046; 78580 ==

== ENCOUNTER 2025-06-29 08:36 | Outpatient (REF) | payer BC, SELFPAY ==
--- NOTE | ~2025-06-29 | US_ITS ---
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 To evaluate the superficial system, the examination was performed in the upright position. Color-flow Doppler ultrasound and compression ultrasound were utilized. In addition, maneuvers were utilized to demonstrate reflux. FINDINGS: 1. DEEP VENOUS ULTRASOUND OF THE LEFT LOWER EXTREMITY: Common Femoral Vein: Compressible, normal respiratory variation and augmented flow. Femoral Vein: Mid femoral vein is partially compressible. No flow is not documented on color Doppler but is evident on spectral analysis. Popliteal Vein: Proximal compressible with hypoechoic material. Trace flow shown on color Doppler in the distal vein with a continuous venous waveform. Deep Reflux: There is no evidence of reflux in the deep system in either the common femoral vein, superficial femoral or the popliteal vein. 2. SUPERFICIAL ULTRASOUND WITH DOPPLER OF LEFT LOWER EXTREMITY: GREAT SAPHENOUS VEIN: Saphenofemoral Junction: 0.9 cm; Reflux: 0 ms Proximal Thigh: 0.7 cm; Reflux: 0 ms Mid Thigh: 0.5 cm; Reflux: 0 ms Distal Thigh: 0.4 cm; Reflux: 0 ms At Knee: 0.5 cm; Reflux: 0 ms Below Knee/Proximal Calf: 0.5 cm; Reflux: 0 ms Mid Calf: 0.4 cm; Reflux: 0 ms Ankle/Distal Calf: 0.2 cm; Reflux: >2400 ms Lateral / Medial accessory GREAT SAPHENOUS VEIN: None imaged SMALL SAPHENOUS VEIN: Saphenopopliteal Junction: 0.3 cm; Reflux: 0 ms Mid calf: 0.3 cm; Reflux: 0 ms Distal: 0.3 cm; Reflux: 0 ms VEIN OF GIACOMINI: Size: 0.3 cm Reflux: 0 ms PERFORATORS: Location: Greater saphenous vein, mid calf Size: 0.6 cm Reflux: 0 ms Location: Greater saphenous vein, mid calf 26 cm cephalad to calcaneus Size: 0.3 cm Reflux: >2800 ms VARICOSITIES > 3mm: Location: None Imaged US/US venous duplex LE LT IMPRESSION: Left: Persistent DVT is noted in the mid femoral vein and popliteal vein. No flow was shown on color Doppler in the femoral vein but a venous waveform was documented on spectral interrogation. The popliteal vein demonstrates trace flow on color Doppler with the venous waveform. DVT has probably progressed since the prior. Persistence of DVT was discussed with Dr. Covarrubias per the US tech note. Venous incompetence: There is reflux in the greater saphenous vein at the ankle and in a great saphenous vein buttoner 26 cm cephalad to calcaneus. Electronically signed by: Floyd Berger MD 06/29/2025 11:10 AM EDT
--- OUTSIDE RECORDS SUMMARY | 2025-06-29 08:58 | XMS_ITS | Clinical Summary ---
Author Organization [facility] Address [address] [facility] [address] [place] [address] Phone Care Team Providers Care Mother Tester Name Role Phone Wyatt Buck MD Primary Care Provider [phone] [phone] Allergies No known active allergies Medications No [...] - 2024-2 6 season) 2025 06/23/2022, 10/02/2021 RSV VACCINE (1 - 1-dose 75+ series) 2043 HEPATITIS A VACCINES Aged Out No long [...] topic Medical Devices Not on file [place] [address] [place] [address] Care Teams Mother Tester Relationship Specialty Start Date End Date Wyatt Buck MD [address] [place] [address] [place] [address] PCP - General Internal Medicine 10/16/23 Additional Source Comments The information contained in this document represents components of the legal health record. It is not the complete legal health record.[facility]
== END 2025-06-29 08:37 | disposition home or self-care (01) ==
LOC: HO.US 08:36
PROVIDERS: PCP Internal Medicine; Visit Provider Surgery Vascular Surgery
DX: I83.12 Varicose veins of left lower extremity with inflammation (principal)
CPT/HCPCS: 93971

== ENCOUNTER → 2025-06-29 08:38 | Outpatient (BNV) | payer BC, SELFPAY | PROVIDERS: PCP Internal Medicine; Visit Provider Radiology Diagnostic Radiology | DX: I83.12 Varicose veins of left lower extremity with inflammation (principal) | CPT/HCPCS: 93971 ==

== ENCOUNTER 2025-07-01 15:15 | Outpatient (AMB) | payer BC, SELFPAY ==
--- NOTE | 2025-07-01 15:27 | A.OFFPC_ITS ---
Vital Signs 07/01/25 15:29 Height 5 ft 8 in Weight 218 lb 6 oz BMI 33.2 BP 152/80 H Blood Pressure Location Lt brachial Position Sitting Pulse 62 Pulse Source Pulse Oximeter Temp 97.3 F Temp Source Temporal Artery Scan Pulse Oximetry (%) 98 Oxygen Delivery Method Room Air Intake Visit Reasons: discuss dermo referral Intake Note: Patient is here to follow up on Rash/ Red spots on lower body. Requesting for Dermatology referral . Auto Service Station Attendant Required: No Home Theater Experience Expert: Not Required per policy Accompanied by: Self / Same As Patient Allergies apixaban (From [facility]) Adverse Reaction (Mild, Verified 07/01/25 15:28) Rash Medication List - Last Reconciled 07/01/25 by Bruno Reynolds MD amlodipine 5 mg See Protocol PO DAILY 90 days clotrimazole-betamethasone 1-0.05 % 1 appl topical BID 2 weeks nystatin (Nystop) 1 appl topical TID nystatin 1 appl topical TID rivaroxaban 20 mg PO DAILY trazodone 50 mg PO BEDTIME PRN Tobacco use date assessed: 07/01/25 Dental Screening Dental Screen Date: 05/25/25 HPI HPI Comments History of Present Illness Details The patient is a 55-year-old male presenting with a lower extremity skin rash characterized by pruritus and pain. The rash have been present for about six weeks to two months, with the patient experiencing itching severe enough to wake him at night. Initial treatment with prednisone provided temporary relief, but symptoms recurred after cessation of the medication. The patient was seen by Dr. Barry who prescribed him a cortisone cream and an anti fungal powder for intertigo. He did not picker and sorter load and unload the steroid cream due to high nguyen and lack of i nsurance coverage. [facility] Medical History Essential hypertension Insomnia Swelling of left lower extremity HTN (hypertension) Erectile dysfunction Erythrocytosis Vitamin D deficiency Pure hypercholesterolemia Basal cell carcinoma of skin of right upper eyelid, including canthus Peripheral vascular disease History of polycythemia History of pulmonary embolism Erectile dysfunction History of DVT of lower extremity Insomnia Anxiety Rash Surgical History History of colonoscopy Hx of anterior cruciate ligament surgery History of arthroscopy of both knees Hx of cholecystectomy History of thrombectomy (06/11/24) S/P IVC filter (~2001) Family History Father Diabetes Mother Diabetes Social History Household Members: None Housing: Apartment Are you a primary farm or ranch animal caretaker to a significant other at home: No Do you presently have visiting nurse or other home services: No Alcohol intake: current Alcohol intake frequency: holidays/special occasions only Patient Tobacco Use Status: Former Tobacco user Tobacco use type: Cigarette e-Cigarette/Vaping Use: Never Used Second Hand Smoke Exposure: Yes service: No Current occupational status: employed 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 Cognitive needs: No Hearing needs: No Vision needs: Yes (Reading Glasses) Questionnaire Thrive Questionnaire Date Thrive assessed: 01/22/25 I am a: Patient What is your living situation today?: I have a steady place to live Within the past 12 months, did the food you bought not last and you didn't have the money to get more?: Never true Within the past 12 months, did you worry whether your food would run out before you got money to buy more?: Never true Do you have trouble paying for medicines?: No Do you have trouble getting transportation to medical appointments?: No Do you have trouble paying your heating and electricity bill?: No Do you have trouble taking care of your child, family member or friend?: No Do you have trouble with day-to-day activities such as bathing, preparing meals, shopping, managing finances, etc.?: No Are you currently unemployed and looking for a job?: No Are you interested in more education?: No Please select the resources that you would like help with: None Currently or been in a relationship where the following occur: No concerns reported THRIVE Score: 0 SCOTTIE-7 AMB Questionnaire SCOTTIE-7 Date SCOTTIE - 7 assessed: 05/25/25 Source: Developed by Drs. Kaleb Salomon, Alla Douglas, Benito Bello and colleagues, with an educational renetta from [employer] Review of Systems Const Details: Positives besides what was mentioned in HPI are in BOLD Constitutional: No Weight Change, No Fever, No Chills, No Night Sweats, No Fatigue, No Malaise ENT/Mouth: No Hearing Changes, No Ear Pain, No Nasal Congestion, No Sinus Pain, No Hoarseness, No sore throat, No Rhinorrhea, No Swallowing Difficulty Eyes: No Eye Pain, No Swelling, No Redness, No Foreign Body, No Discharge, No Vision Changes Cardiovascular: No Chest Pain, No SOB, No PND, No Dyspnea on Exertion, No Orthopnea, No Claudication, No Edema, No Palpitations Respiratory: No Cough, No Sputum, No Wheezing, No Smoke Exposure, No Dyspnea Gastrointestinal: No Nausea, No Vomiting, No Diarrhea, No Constipation, No Pain, No Heartburn, No Anorexia, No Dysphagia, No Hematochezia, No Melena, No Flatulence, No Jaundice Genitourinary: No Dysmenorrhea, No DUB, No Dyspareunia, No Dysuria, No Urinary Frequency, No Hematuria, No Urinary Incontinence, No Urgency, No Flank Pain, No Urinary Flow Changes, No Hesitancy Musculoskeletal: No Arthralgias, No Myalgias, No Joint Swelling, No Joint Stiffness, No Back Pain, No Neck Pain, No Injury History Skin: No Skin Lesions, No Pruritis, No Hair Changes, No Breast/Skin Changes, No Nipple Discharge Neuro: No Weakness, No Numbness, No Paresthesias, No Loss of Consciousness, No Syncope, No Dizziness, No Headache, No Coordination Changes, No Recent Falls Psych: No Anxiety/Panic, No Depression, No Insomnia, No Personality Changes, No Delusions, No Rumination, No SI/HI/AH/VH, No Social Issues, No Memory Changes, No Violence/Abuse Hx., No Eating Concerns Heme/Lymph: No Bruising, No Bleeding, No Transfusions History, No Lymphadenopathy Endocrine: No Polyuria, No Polydipsia, No Temperature Intolerance Physical exam (Primary Care) Vital Signs: Last Vital Signs Temp 97.3 F 07/01/25 15:29 Pulse 62 07/01/25 15:29 BP 152/80 H 07/01/25 15:29 Pulse Ox 98 07/01/25 15:29 Oxygen Delivery Method Room Air 07/01/25 15:29 BMI result Body Mass Index 33.2 Tobacco/Smoking Status: Tobacco use Status Tobacco use date assessed 07/01/25 07/01/25 15:38 Patient Tobacco Use Status Former Tobacco user 07/01/25 15:38 Tobacco use type Cigarette 07/01/25 15:38 e-Cigarette/Vaping Use Never Used 07/01/25 15:38 Thrive Assessment: Date of Thrive Assessment Date Thrive assessed 01/22/25 07/01/25 15:38 Currently or been in a relationship where the following occur: No concerns reported Const Other: Pertinent findings are in BOLD GENERAL APPEARANCE NAD, activity normal for age, well developed/ well nourished, no cyanosis, pallor, or diaphoresis. EYES lids/conjunctiva normal. EARS/NOSE/THROAT Mucous membranes moist, nares normal, lips/teeth normal uvula midline without oral pharyngeal erythema, exudate or swelling TMs normal bilaterally. No lymphangitis/lymphedema. HEAD/NECK normocephalic atraumatic, no facial trauma, neck is supple. RESPIRATORY respiratory effort normal, speaks in full sentences, no tripod position, no accessory muscle use. Lungs clear to auscultation without rhonchi, wheezes, rales CARDIAC Regular rate and rhythm, no edema. ABDOMINAL Soft, ND/NT. No evidence of fluid wave. No pulsatile masses on exam, rebound tenderness, Arizmendi sign or pain over Mcburney's point. MUSCLES/EXTREMITIES No abnormal range of motion, no swelling. SKIN Warm, pink and dry. Petechial rash on lower extremities bilaterally, signs of stasis dermatitis also present. NEUROLOGICAL Speech is clear and appropriate. Normal level of consciousness. Gait and coordination are normal. 5/5 strength in all extremities. PSYCH Normal mood and affect. Judgement/competence is appropriate Coding Level of Care Code Est Pt Level 3 (94179) Diagnoses Rash R21 Time Spent (min) 20 Assessment & Plan Assessment & Plan (1) Rash: Code(s): R21 - Rash and other nonspecific skin eruption Category: Medical Plan: - Referral to dermatology for further evaluation and management. - Prescribed Zyrtec for symptomatic relief of itching. - REcommended picking up the steroid cream previously prescribed by Dr. Sam. Patient is aggreable. Plan I discussed with the patient the need for a dermatology referral to address the persistent dermatological condition. We considered the use of Zyrtec for symptomatic relief and discussed the potential use of topical treatments if financially feasible. Orders: Referrals Dermatology Referral R21 - Rash and other nonspecific skin eruption Medications: New cetirizine (Zyrtec) 10 mg PO DAILY 10 caps 0RF Changed From amlodipine 5 mg See Protocol PO DAILY 90 days 90 tabs 0RF To amlodipine 10 mg See Protocol PO DAILY 180 tabs 0RF 90 days
[2025-07-01 15:29] VITALS: BP 152/80; PULSE 62; TEMP 36.3; O2SAT 98; BMI 33.2
--- OUTSIDE RECORDS SUMMARY | 2025-07-01 19:06 | XMS_ITS | Clinical Summary ---
Author Organization [facility] Address [address] [facility] [address] [place] [address] Phone Care Team Providers Care Software Systems Architect Name Role Phone Wyatt Buck MD Primary Care Provider +1 [phone] Allergies No known active allergies Medications No [...] topic Medical Devices Not on file [place] [place] [address] Care Teams Software Systems Architect Relationship Specialty Start Date End Date Wyatt Buck MD [address] [place] [address] [place] [address] PCP - General Internal Medicine 10/16/23 Additional Source Comments The information contained in this document represents components of the legal health record. It is not the complete legal health record.[facility]
== END 2025-07-01 16:04 | disposition home or self-care (01) ==
LOC: HO.HMCH 15:16
PROVIDERS: PCP Internal Medicine; Visit Provider Internal Medicine
DX: R21 Rash and other nonspecific skin eruption (principal)

== ENCOUNTER 2025-07-15 14:43 | Outpatient (AMB) | payer BC, SELFPAY ==
--- NOTE | 2025-07-15 15:39 | MHC.OFFVIS ---
Vital Signs 07/15/25 15:40 Height 5 ft 8 in Weight 215 lb BMI 32.7 BP 140/70 H Blood Pressure Location Lt brachial Position Sitting Pulse 65 Pulse Source Pulse Oximeter Pulse Oximetry (%) 98 Oxygen Delivery Method Room Air Intake Visit Reasons: Shortness of Breath/Same Day PFT Intake Note: pt is here for follow up from pft and feeling good. Territory Development Manager Required: No Certified Nurses' Aide: Certified Nurses' Aide offered & declined Allergies apixaban (From [employer]) Adverse Reaction (Mild, Verified 07/15/25 16:44) Rash Medication List - Last Reconciled 07/15/25 by Mathew Galindo MD amlodipine 10 mg See Protocol PO DAILY 90 days cetirizine (Zyrtec) 10 mg PO DAILY clotrimazole-betamethasone 1-0.05 % 1 appl topical BID 2 weeks nystatin (Nystop) 1 appl topical TID nystatin 1 appl topical TID rivaroxaban 20 mg PO DAILY trazodone 50 mg PO BEDTIME PRN Do you need a note to return to daycare/school/sports/work: No HPI HPI Shortness of Breath/Same Day PFT: Details: 55 years old gentleman is here for follow-up after 2 months. Complains of shortness of breath if he walks fast and up hill, at his normal speed of walking and on the level ground he. Does not have any problems He denies any chest pain along with the mild dyspnea. 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 He is a case of antiphospholipid antibody syndrome. He is being followed by Dr. Almanza ( hematology) While in the past he has had IVF , and treatment with Coumadin. Currently he is on Xarelto 20 mg daily. IVF has been removed and he remains sort of fearful of getting pulmonary embolus. He has had nuclear lung scan , also had pulmonary function test earlier today. He was scheduled to have echocardiogram but he could not come on his day of ,appointment so it is awaited. [facility] Medical History Essential hypertension Insomnia Swelling of left lower extremity HTN (hypertension) Erectile dysfunction Erythrocytosis Vitamin D deficiency Pure hypercholesterolemia Basal cell carcinoma of skin of right upper eyelid, including canthus Peripheral vascular disease History of polycythemia History of pulmonary embolism Erectile dysfunction History of DVT of lower extremity Insomnia Anxiety Rash Surgical History History of colonoscopy Hx of anterior cruciate ligament surgery History of arthroscopy of both knees Hx of cholecystectomy History of thrombectomy (06/11/24) S/P IVC filter (~2001) Family History Father Diabetes Mother Diabetes Social History Household Members: None Housing: Apartment Are you a primary rn progressive care unit to a significant other at home: No Do you presently have visiting nurse or other home services: No Alcohol intake: current Alcohol intake frequency: holidays/special occasions only Patient Tobacco Use Status: Former Tobacco user Tobacco use type: Cigarette e-Cigarette/Vaping Use: Never Used Second Hand Smoke Exposure: Yes service: No Current occupational status: employed 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 Cognitive needs: No Hearing needs: No Vision needs: Yes (Reading Glasses) Review of Systems Const All systems reviewed & are unremarkable except as noted in HPI and below Eyes Reports no additional complaints ENT Reports no additional complaints Card Denies chest pain, Denies syncope, Denies irregular heart rhythm and Reports dyspnea on exertion (ON WALKING UP HILL) Resp Reports as per HPI and Reports dyspnea on exertion (ON WALKING UP HILL) GI Reports no additional complaints Reports erectile dysfunction Musc Reports no additional complaints Skin/Breast Reports rash ( HAS HAD STASIS DERMATITIS OF LOWER EXTREMITIES ESPECIALLY AROUND ANKLES) Neuro Reports no additional complaints and Denies syncope Psych Reports no additional complaints Endo Reports no additional complaints Anton/Lymph Reports no additional complaints Aller/Immun Reports no additional complaints Physical Exam Vital Signs: Last Vital Signs Pulse 65 07/15/25 15:40 BP 140/70 H 07/15/25 15:40 Pulse Ox 98 07/15/25 15:40 Oxygen Delivery Method Room Air 07/15/25 15:40 BMI result Body Mass Index 32.7 Const General: healthy appearing, comfortable, no acute distress, alert and awake Orientation/consciousness: patient oriented x3 HEENT Head: Yes normal to inspection General nose exam: No nasal polyps present and No nasal discharge present Face and sinus: Yes sinuses nontender Mouth: oropharynx normal Throat: Yes posterior oropharynx normal Eyes General: appearance normal, both eyes and all related structures Neck Neck: Yes normal visual inspection, Yes no lymphadenopathy, Yes trachea midline and Yes no JVD Thyroid: Thyroid normal Chest Chest palpation & inspection: normal inspection of the chest, normal palpation of entire chest wall and no tenderness Resp Effort & Inspection: normal respiratory effort Auscultation: clear to auscultation bilaterally, no crackles, no rhonchi and no wheezes Cardio Palpation: normal PMI Rate: regular rate Rhythm: regular rhythm Heart sounds: no gallops and no murmurs Peripheral pulses: Peripheral pulses 2+ throughout GI Palpation (GI): Soft to palpation, nontender, No hepatosplenomegaly present and no masses Auscultation: normal bowel sounds Back/Spine/Pelvis Thoracic/Lumbar Spine: thoracic and lumbar spine normal to inspection Skin General skin exam: no rashes or lesions noted Neuro General: patient oriented x3 and no focal motor deficits Cranial nerves: Yes CN's II-XII intact bilaterally Extrem General: Yes normal to inspection, Yes no clubbing, cyanosis or edema, Yes no calf tenderness and Yes edema (THERE IS MILD EDEMA OF BOTH LEGS WITH VARICOSITIES ,) Psych Appearance: grossly normal and well kempt Speech and movement: Normal speech and movement present Results Reviewed Results Reviewed: Nuclear lung scan, shows nonspecific perfusion defects suggestive of chronic pulmonary embolism. CTA of the chest has been recommended. Pulmonary function test is essentially normal. Normal lung volumes except FEF 02/02/2075 being 65%, slightly low. Echocardiogram awaited. Assessment & Plan Assessment & Plan (1) History of pulmonary embolism: Comment: NOTED IN THE HISTORY ABOVE, HE DOES HAVE PAST HISTORY OF PULMONARY EMBOLISM, DUE TO WHICH HE MAY HAVE A PERMANENT IMPAIRMENT OF SOME FUNCTION OF THE LUNGS. CURRENTLY HE IS ON ACTIVE ANTICOAGULATION, Code(s): Z86.711 - Personal history of pulmonary embolism Category: Medical Plan: His perfusion scan suggests that he has had pulmonary emboli in the past . Clinically I do not think he is having any active PE . Symptoms Advised to continue on anticoagulation with Xarelto (2) DVT (deep venous thrombosis): Comment: 09/15/2002 - IVC filter placement Kevin Valverde by Dr. Coto 06/11/2024 - mechanical venous thrombectomy 07/20/2024 - vena cava filter removal by Dr. Marci Wilson(s): I82.409 - Acute embolism and thrombosis of unspecified deep veins of unspecified lower extremity Category: Medical Qualifiers: Affected thrombotic vein of extremity: iliac Chronicity: acute DVT location: lower extremity Laterality: bilateral Qualified Code(s): I82.423 - Acute embolism and thrombosis of iliac vein, bilateral Plan: He does have chronic thromboembolism. Needs to stay on anticoagulation and should be. Monitored closely (3) Shortness of breath: Comment: SHORTNESS OF BREATH ESPECIALLY ON EXERTION LIKE WALKING UP HILL, MAY BE RELATED TO PREVIOUS HISTORY OF PULMONARY EMBOLISM. Pulmonary function test is essentially normal. No obstructive airway disorder. Code(s): R06.02 - Shortness of breath Category: Medical Plan: PFT results explained to him. He is reassured . Continue anticoagulation. He should have echocardiogram to check for pulmonary hypertension . Coding Level of Care Code Est Pt Level 3 (06538) Diagnoses History of pulmonary embolism Z86.711 Acute deep vein thrombosis (DVT) of iliac vein of both lower extremities I82.423 Affected thrombotic vein of extremity: iliac Chronicity: acute DVT location: lower extremity Laterality: bilateral Shortness of breath R06.02
[2025-07-15 15:40] VITALS: BP 140/70; PULSE 65; O2SAT 98; BMI 32.7
--- OUTSIDE RECORDS SUMMARY | 2025-07-15 17:40 | XMS_ITS | Clinical Summary ---
Author Organization [facility] Address [address] [place] [id number] Phone Care Team Providers Care Marine Erector Name Role Phone Wyatt Buck MD Primary Care Provider [phone] Allergies No known active allergies Medications No [...] topic Medical Devices Not on file [place] [place] [address] Care Teams Marine Erector Relationship Specialty Start Date End Date Wyatt Buck MD [address] [place] [address] [place] [address] PCP - General Internal Medicine 10/16/23 Additional Source Comments The information contained in this document represents components of the legal health record. It is not the complete legal health record.[facility]
== END 2025-07-15 16:02 | disposition home or self-care (01) ==
LOC: HO.HPS 14:44
PROVIDERS: PCP Internal Medicine; Visit Provider Internal Medicine
DX: Z86.711 Personal history of pulmonary embolism (principal); I82.423 Acute embolism and thrombosis of iliac vein, bilateral; R06.02 Shortness of breath
CPT/HCPCS: 99213

== ENCOUNTER 2025-07-15 14:56 | Outpatient (REF) | payer BC, SELFPAY ==
--- NOTE | 2025-07-15 15:01 | PFT_ITS ---
Flows: FEV1: 87 % of predicted at 3.02 L FVC: 90 % of predicted at 3.96 L FEV1/FVC: 76 % Bronchodilator response: Absent Volumes: Total lung capacity: 86 % of predicted at 5.78 L Residual volume: 92 % of predicted at 1.82 L Slow vital capacity: 82 % of predicted at 3.97 L Expiratory reserve volume: 54 % of predicted at 0.66 L Diffusion capacity: Normal Impression: No obstructive or restrictive ventilatory defect. No bronchodilator response. Decreased expiratory reserve volume suggests extrathoracic restriction likely secondary to abdominal obesity. MTDD
[2025-07-15 15:41] VITALS: PULSE 59
== END 2025-07-15 14:57 | disposition home or self-care (01) ==
LOC: HO.RESP 14:56
PROVIDERS: PCP Internal Medicine; Visit Provider Internal Medicine
DX: R06.02 Shortness of breath (principal); Z86.711 Personal history of pulmonary embolism
CPT/HCPCS: 94060; 94640; 94727; 94729